=== PATIENT | female | born 2000 | race Caucasian/White ===

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

== ENCOUNTER 2019-01-29 02:18 | Outpatient (CLI) | payer MEDICAID, SELFPAY ==
[2019-01-29 12:38] LABS: HCT 34.2 % (36.0-46.0); HGB 11.4 g/dL (12.0-15.5); Mean Corp. HGB Concentration 33.3 g/dL (32.0-36.0); Mean Corpuscular Hemoglobin 31.2 pg (27.0-33.0); Mean Corpuscular Volume 93.7 fL (80-95); Mean Platelet Volume 8.9 fL (8.0-11.0); Platelet Count 267 x1000/uL (130-400); RBC 3.65 m/cumm (4.00-5.20); RBC Distribution Width 12.6 % (11.7-14.6); White Blood Cell Count 7.15 k/cumm (4.4-10.8)
[2019-01-29 13:00] LABS: Glucose,1 Hr (Glucola) 111 mg/dL (80-140)
== END 2019-01-29 02:38 ==
PROVIDERS: PCP Nurse Practitioner Pediatrics; Visit Provider Advanced Practice Midwife
DX: Z34.93 Encounter for supervision of normal pregnancy, unspecified, third trimester (principal)
CPT/HCPCS: 36415; 82950; 85027

== ENCOUNTER 2019-02-12 08:58 | Outpatient (REF) | payer MEDICAID, SELFPAY ==
[2019-02-12 09:38] LABS: Bilirubin Negative (Negative); Blood Moderate (Negative); Clarity Clear (Clear); Glucose Negative (Negative); Ketones Negative (Negative); Leukocyte Esterase Negative (Negative); Nitrite Negative (Negative); Specific Gravity 1.015 (1.005-1.025); Urobilinogen 0.2 EU/dL (Up TO 0.2); pH 8.5 (5-8)
[2019-02-12 10:05] LABS: Bacteria Rare HPF (Negative); C & S Indicated? C&S Done As Ordered; Casts Negative LPF (Negative); Crystals Negative HPF (Negative); Epithelial Cells Few HPF (Negative); Mucus Trace (Negative); RBC 20-50 (0-2); WBC 20-50 HPF (0-5)
== END 2019-02-12 09:18 ==
LOC: LBN 08:58
PROVIDERS: PCP Nurse Practitioner Pediatrics; Visit Provider Advanced Practice Midwife
DX: Z87.442 Personal history of urinary calculi (principal)
CPT/HCPCS: 81003; 81015; 87086

== ENCOUNTER 2019-03-05 16:25 | Observation (INO) | payer MEDICAID, SELFPAY ==
[2019-03-05] MEDS: Betamet Acet/Betamet Na Ph Inj. 30 MG/5 ML 12 MG IM (18:31)
[2019-03-05 18:43] LABS: Fetal Fibronectin Positive (Negative)
[2019-03-05] MEDS: Lactated Ringers 1,000 ML 150 ML IV (19:43)
[2019-03-05] MEDS: Normal Saline Flush 10 ML SYR IVP (19:44)
[2019-03-05 20:25] LABS: Bilirubin Negative (Negative); Blood Trace-lysed (Negative); Clarity Clear (Clear); Glucose Negative (Negative); Ketones Negative (Negative); Leukocyte Esterase Negative (Negative); Nitrite Negative (Negative); Specific Gravity <= 1.005 (1.005-1.025); Urobilinogen 0.2 EU/dL (Up TO 0.2); pH 6.5 (5-8)
[2019-03-05 20:37] LABS: Bacteria Negative HPF (Negative); Casts Negative LPF (Negative); Crystals Negative HPF (Negative); Epithelial Cells Negative HPF (Negative); Mucus Negative (Negative); Other Cells Negative (Negative); RBC Negative (0-2); WBC Negative HPF (0-5)
[2019-03-05 20:38] LABS: C & S Indicated? No
[2019-03-05 21:00] VITALS: BP 105/68; PULSE 94; RESP 18; TEMP 36.7
[2019-03-05 21:30] VITALS: BP 105/68; PULSE 94; RESP 18; TEMP 36.7
[2019-03-05] MEDS: Zolpidem 5 MG TAB 10 MG PO (23:28)
[2019-03-06 02:00] VITALS: BP 110/65; PULSE 93; RESP 18; TEMP 36.8
[2019-03-06] MEDS: Lactated Ringers 1,000 ML 150 ML IV ×2 (05:35→06:29)
--- NOTE | 2019-03-06 09:00 | DI.US_ITS ---
EXAM: US RENAL CLINICAL HISTORY: h/o personal familial stones,+ l cvat, iup w/ucs TECHNIQUE: Ultrasound performed using standard protocol. COMPARISON: No exams were available for comparison FINDINGS: The right kidney measures 10.9 cm. The left kidney measures 10.9 cm. The parenchymal thickness and echogenicity appear normal. No stones, cysts or masses are identified. There is mild bilateral hydr onephrosis. The prevoid bladder volume measured 114 cc. There is no postvoid residual. No bladder wall thickening or bladder calculi are seen. IMPRESSION: Mild bilateral hydronephrosis which may be within normal limits late in gestation. No calculi are visualized.
[2019-03-06] MEDS: MAGNESIUM SULFATE 4 GM/100 ML BAG IVPB (12:22)
[2019-03-06 12:30] LABS: HCT 35.5 % (36.0-46.0); HGB 11.8 g/dL (12.0-15.5); Mean Corp. HGB Concentration 33.2 g/dL (32.0-36.0); Mean Corpuscular Volume 93.2 fL (80-95); Mean Platelet Volume 9.2 fL (8.0-11.0); Platelet Count 293 x1000/uL (130-400); RBC 3.81 m/cumm (4.00-5.20); RBC Distribution Width 12.6 % (11.7-14.6); White Blood Cell Count 10.72 k/cumm (4.4-10.8)
== END 2019-03-06 13:15 | disposition short-term general hospital (02) ==
PROVIDERS: Advanced Practice Midwife; Admitting Provider Advanced Practice Midwife; PCP Nurse Practitioner Pediatrics; Visit Provider Advanced Practice Midwife
DX: O60.03 Preterm labor without delivery, third trimester (principal); Z3A.33 33 weeks gestation of pregnancy; Z36.85 Encounter for antenatal screening for Streptococcus B; Z87.442 Personal history of urinary calculi
CPT/HCPCS: 36415; 76770; 85027; 86850; 86900; 86901; 96365; 96372; 81003; 81015; 82731; 87081; 87480; 87510; 87660; G0378; J0702; J3475

== ENCOUNTER 2019-03-17 14:50 | Outpatient (REF) | payer MEDICAID, SELFPAY | END 2019-03-17 15:10 | LOC: LBN 14:50 | PROVIDERS: PCP Nurse Practitioner Pediatrics; Visit Provider Advanced Practice Midwife | DX: Z34.93 Encounter for supervision of normal pregnancy, unspecified, third trimester (principal); Z36.85 Encounter for antenatal screening for Streptococcus B | CPT/HCPCS: 87081 ==

== ENCOUNTER 2019-03-22 11:52 | Inpatient (IN) | payer MEDICAID, SELFPAY ==
[2019-03-22 16:52] LABS: HCT 36.9 % (36.0-46.0); HGB 12.1 g/dL (12.0-15.5); Mean Corp. HGB Concentration 32.8 g/dL (32.0-36.0); Mean Corpuscular Hemoglobin 30.6 pg (27.0-33.0); Mean Corpuscular Volume 93.2 fL (80-95); Mean Platelet Volume 9.4 fL (8.0-11.0); Platelet Count 242 x1000/uL (130-400); RBC 3.96 m/cumm (4.00-5.20); RBC Distribution Width 13.3 % (11.7-14.6); White Blood Cell Count 10.96 k/cumm (4.4-10.8)
[2019-03-23 13:43] LABS: *AMPHETAMINES SCREEN URINE Negative (Negative); *BARBITURATES SCREEN URINE Negative (Negative); *BENZODIAZEPINES SCREEN URINE Negative (Negative); Cannabinoids THC Negative (Negative); Cocaine Screen,Urine Negative (Negative); METHADONE URINE SCREEN Negative (Negative); OPIATES URINE SCREEN Negative (Negative)
[2019-03-23] MEDS: Oxytocin 10 UNITS/ML VIAL IM (13:49)
[2019-03-23 13:50] LABS: Tricyclic Antidepressants Negative (Negative)
[2019-03-23] MEDS: Ibuprofen 600 MG TAB PO (14:36)
[2019-03-23] MEDS: Acetaminophen 325 MG TAB 650 MG PO (14:36)
[2019-03-24 07:52] LABS: HCT 37.4 % (36.0-46.0); HGB 12.2 g/dL (12.0-15.5); Mean Corp. HGB Concentration 32.6 g/dL (32.0-36.0); Mean Corpuscular Hemoglobin 30.4 pg (27.0-33.0); Mean Corpuscular Volume 93.3 fL (80-95); Mean Platelet Volume 9.3 fL (8.0-11.0); Platelet Count 236 x1000/uL (130-400); RBC 4.01 m/cumm (4.00-5.20); RBC Distribution Width 13.5 % (11.7-14.6); White Blood Cell Count 10.78 k/cumm (4.4-10.8)
[2019-03-24] MEDS: Acetaminophen 325 MG TAB 650 MG PO (08:40)
[2019-03-24] MEDS: Ibuprofen 600 MG TAB PO (08:41)
--- NOTE | 2019-03-25 06:49 | W.PM.PROGNOT ---
Date of Service Date of service: 03/24/19 Time of Service: 15:00 Assessment and Plan Assessment and plan (1) Encounter for insertion subdermal contraceptive: Status: Acute Assessment and plan: Previous Nexplanon insertion site marked with pen and left upper arm cleansed with betadine and alcohol. Approximately 0.5 cc of local anesthetic injected at insertion site and deeply along insertion path. Nexplanon inserted without difficulty and patient tolerated the procedure well. Pressure dressing applied and patient was instructed to keep a bandaid in place for three days and replace the bandaid if the dressing becomes wet. The patient and I identified the device after the procedure. Signs of infection were reviewed. Subjective Subjective Interval history since last seen: Desires post insertion ofnexplanon prior to dischage Objective Objective Clinical Data: Vital Signs Pain Level 7 03/24/19 08:41 Laboratory Results WBC 10.78 k/cumm (4.4-10.8) 03/24/19 07:20 RBC 4.01 m/cumm (4.00-5.20) 03/24/19 07:20 Hgb 12.2 g/dL (12.0-15.5) 03/24/19 07:20 Hct 37.4 % (36.0-46.0) 03/24/19 07:20 MCV 93.3 fL (80-95) 03/24/19 07:20 MCH 30.4 pg (27.0-33.0) 03/24/19 07:20 MCHC 32.6 g/dL (32.0-36.0) 03/24/19 07:20 RDW 13.5 % (11.7-14.6) 03/24/19 07:20 Plt Count 236 x1000/uL (130-400) 03/24/19 07:20 MPV 9.3 fL (8.0-11.0) 03/24/19 07:20 Urine Opiates Screen Negative (Negative) 03/22/19 17:00 Urine Methadone Screen Negative (Negative) 03/22/19 17:00 Ur Barbiturates Screen Negative (Negative) 03/22/19 17:00 Ur Tricyclics Screen Negative (Negative) 03/22/19 17:00 Ur Amphetamines Screen Negative (Negative) 03/22/19 17:00 U Benzodiazepines Scrn Negative (Negative) 03/22/19 17:00 Urine Cocaine Screen Negative (Negative) 03/22/19 17:00 Ur THC Screen Negative (Negative) 03/22/19 17:00 Patient ABO/Rh O Positive 03/22/19 16:31 Antibody Screen Negative 03/22/19 16:31 Procedures Abscess I/D Site: other (left upper arm) Anesthetic used: lidocaine 1%
[2019-03-25] MEDS: Hamamelis Leaf/Glycerin 100 EACH BOX PR (16:16)
[2019-03-25] MEDS: Measles, Mumps, & Rubella Vaccine 0.5 ML VIAL SC (16:17)
[2019-03-25] MEDS: Acetaminophen 325 MG TAB 650 MG PO (16:28)
[2019-03-25] MEDS: Ibuprofen 600 MG TAB PO (16:29)
== END 2019-03-25 17:10 | disposition other institution (70) | DRG 807 ==
PROVIDERS: Advanced Practice Midwife; Admitting Provider Advanced Practice Midwife; PCP Nurse Practitioner Pediatrics; Visit Provider Advanced Practice Midwife
DX: O60.14X0 Preterm labor third trimester with preterm delivery third trimester, not applicable or unspecified (principal); Z37.0 Single live birth; Z3A.36 36 weeks gestation of pregnancy; O69.81X0 Labor and delivery complicated by cord around neck, without compression, not applicable or unspecified; Z39.1 Encounter for care and examination of lactating mother
CPT/HCPCS: 36415; 80307; 85027; 86850; 86900; 86901; 99232; G0378; J2590

== ENCOUNTER 2020-08-09 20:22 | Emergency (ER) | payer MEDICAID, SELFPAY ==
[2020-08-09 20:26] VITALS: BP 120/68; PULSE 101; RESP 16; TEMP 36.6; O2SAT 98
--- NOTE | 2020-08-09 20:42 | ED.GENADUL_ITS ---
Discharge Plan Disposition Patient Disposition: HOME Condition: Good Discharge Details Clinical Impression: URI (upper respiratory infection), Acute sore throat Primary Care Provider: Heather Phan ED Provider: Noah Tejada Home Meds and New Rx's Prescriptions: Continued Nexplanon 68 mg implant 1 implant SBD ONCE RF: 0 estradiol 1 mg tablet 1 mg PO DAILY Qty: 14 RF: 0 Discharge Instructions Instructions: Upper Respiratory Infection (ED) Additional Instructions: This time your strep test is negative. Your symptoms are inconsistent with mono. I suspect this is a mild viral infection. Please gargle salt water, and take Tylenol and Motrin as needed for pain. Drink plenty of fluids. If you notice any worsening of your symptoms, or any new symptoms such as vomiting, diarrhea, fever, chills, shortness of breath, chest pain, numbness, weakness, or fainting , please return immediately to the emergency department for ree valuation. Please follow up with your primary care provider as soon as possible for reassessment and reevaluation. As always, it was a pleasure participating in your medical care today. Referrals: Heather Phan [Primary Care Provider] - Medical Decision Making 19-year-old female with no significant past medical history presents today for evaluation of sore throat. Patient states been present for the last 24 to 36 hours. She admits to a fever yesterday, but denies any fever currently or chills. She denies any significant cough or shortness of breath. She did have a Covid test outpatient which was negative yesterday. No severe fatigue, no other headache or complaints at this time. No other modifying factors. Physical exam demonstrates mild erythema the posterior pharynx. No meningeal signs. Strep screen was negative. Symptoms consistent with mild viral etiology. Covid negative. Patient will be discharged home. Discussed recommendations, recommendations for Tylenol Motrin, salt water gargles. Discussed red flags which return. I have extensively reviewed the treatment plan and discharge instructions with the patient. I have addressed all patient concerns at this time. The patient was made aware of what symptoms to monitor for that would warrant a return to the emergency department. Discussed the plan with the patient, they demonstrate verbal understanding and agreement with our assessment and plan at this time. The documentation in this chart was dictated using [employer] dictation software. Please excuse any dictation errors. HPI General Date/Time Provider Initiated Documentation: 08/09/20 20:22 . HPI Narrative: 19-year-old female with no significant past medical history presents today for evaluation of sore throat. Patient states been present for the last 2 4 to 36 hours. She admits to a fever yesterday, but denies any fever currently or chills. She denies any significant cough or shortness of breath. She did have a Covid test outpatient which was negative yesterday. No severe fatigue, no other headache or complaints at this time. No other modifying factors. Related Data Home Medications Medication Instructions Recorded Confirmed etonogestrel 68 mg subdermal 1 implant SBD ONCE 04/27/19 08/09/20 implant estradiol 1 mg tablet 1 mg PO DAILY #14 tab 01/25/20 08/09/20 Previous Rx's Medication Instructions Recorded estradiol 1 mg tablet 1 mg PO DAILY #14 tab 01/25/20 Allergies Allergy/AdvReac Type Severity Reaction Status Date / Time No Known Allergies Allergy Verified 08/09/20 20:31 General Stated Complaint: Sorethroat AV: 4 Review of Systems All systems reviewed & are unremarkable except as noted in HPI and below [facility] Medical History Back pain affecting Joint pain and back pain prior to . Has had chiropractic and PT in the past. BMI (body mass index), pediatric, 5% to less than 85% for age (02/01/15) Contraception Nexplanon device inserted 06/2015 Contraception, generic surveillance (06/24/15) Nexplanon inserted 06/2015 Dysfunctional uterine bleeding Kidney stones hospitalized 2014 and 2018 Learning difficulty (04/21/13) IEP in place Positive test Presence of subdermal contraceptive device Ureteral stone (02/02/16) Surgical History Myringotomy w/ PE (pressure equalizing) tubes Family History Other Personal history of malignant neoplasm MGM Father Essential hypertension Mother Asthma Social History Smoking/Tobacco Use Status: Never Second Hand Exposure: Yes Smoking risk assessment performed?: Yes Alcohol Intake: former Drug use: Occasionally Substance use type: marijuana Adopted: No Pets and animals: Yes Pets and animals: dog(s) Current gender identity: female Do you feel safe at home: Yes Do you feel safe in your relationship?: Yes Female Reproductive History Menstrual Age of Menarche: 14 Duration of menses: <3 days control method: pills (failed bcm.) History History 1 Para 1 Hx # Term Pregnancies 0 Multiple births 0 Hx # Pregnancies 1 Ectopic pregnancies 0 AB induced 0 Hx Number of Living Children 0 AB spontaneous 0 Past Pregnancies Del. Date GA/Weeks # Outcome Route Wgt Sex Labor Lgth Anesthes ia Location Prov Complic 03/23/19 36 No Successful vaginal 2834.952 g Female Christine MartinmarioandiJAREK Delivery Date: 03/23/19 No complications. Mother with perineal and periurethral abrasions not needing repair. Nancy Latif Exam Narrative Exam Narrative: 1.Const: Well-nourished, Well-developed, appearing stated age 2.Eyes: PERRL, no conjunctival injection, and symmetrical lids. 3.ENT: Atraumatic external nose and ears. Moist MM. Neck: Symmetric, trachea midline, No thyromegaly. Mild erythema in the posterior pharynx. No tonsillar exudate, no tonsillar enlargement. Erythema appears to be more focalized in the left upper posterior oropharynx component. Patient demonstrates good movement of cervical neck. There is no nuchal rigidity, no nuchal tenderness. Patient is able to flex the neck without any difficulty or significant pain. Negative Kernig's and Brudzinski sign. 4.CVS: +S1/S2, No murmurs or gallops. Peripheral pulses 2+ and equal in all extremities. Brisk capillary refill in all extremities. 5.RESP: Unlabored respiratory effort. Clear to auscultation bilaterally. No wheezes rales or rhonchi 6.GI: Soft, Nontender/Nondistended, No hepatosplenomegaly. No guarding or rebound. 7.MSK: Normocephalic/Atraumatic, Extremities w/o deformity or ttp No cyanosis or clubbing, Normal movement of all extremities 8.Skin: Warm, Dry. No rashes or lesions. 9.Neuro: class a regional drivers II-XII grossly intact. Sensation grossly intact, no focal neurologic deficits. 10.Psych: (AAO) x3. Appropriate mood and affect Course Vital Signs Vital signs: Vital Signs Temperature 36.6 C 08/09/20 20:26 Pulse 101 H 08/09/20 20:26 Respiratory Rate 16 08/09/20 20:26 Blood Pressure 120/68 08/09/20 20:26 Pulse Oximetry 98 08/09/20 20:26 Temperature 36.6 C 08/09/20 20:26 Temperature Source Tympanic 08/09/20 20:26 Pulse 101 H 08/09/20 20:26 Respiratory Rate 16 08/09/20 20:26 Respiratory Effort Non-Labored 08/09/20 20:26 Blood Pressure 120/68 08/09/20 20:26 Blood Pressure Position Sitting 08/09/20 20:26 Pulse Oximetry 98 08/09/20 20:26 Oxygen Delivery Method Room Air 08/09/20 20:26 Oxygen Flow Rate 0 08/09/20 20:26 Pain Level 9 08/09/20 20:26
== END 2020-08-09 20:53 | disposition home or self-care (01) ==
PROVIDERS: Emergency Provider Student in an Organized Health Care Education/Training Program; PCP Nurse Practitioner Pediatrics
DX: J02.8 Acute pharyngitis due to other specified organisms (principal); J06.9 Acute upper respiratory infection, unspecified
CPT/HCPCS: 87880; 99282; 87081; 99283

== ENCOUNTER 2020-11-16 07:02 | Emergency (ER) | payer MEDICAID, SELFPAY ==
[2020-11-16 07:14] VITALS: BP 125/72; PULSE 82; RESP 18; TEMP 36.6; O2SAT 98
[2020-11-16 07:15] LABS: Bilirubin Negative (Negative); Blood Large (Negative); Clarity Cloudy (Clear); Glucose Negative (Negative); Ketones Negative (Negative); Leukocyte Esterase Trace (Negative); Nitrite Negative (Negative); Specific Gravity >= 1.030 (1.005-1.025); Urobilinogen 0.2 EU/dL (Up TO 0.2); pH 6.5 (5-8)
[2020-11-16 07:25] LABS: Bacteria Moderate HPF (Negative); Crystals Negative HPF (Negative); Epithelial Cells Moderate HPF (Negative); Mucus Trace (Negative); RBC >50 HPF (0-2)
[2020-11-16 07:26] LABS: C & S Indicated? No/Sq. Contamination
--- NOTE | 2020-11-16 07:41 | ED.GENADUL_ITS ---
Discharge Plan Disposition Patient Disposition: HOME Condition: Improving Discharge Details Clinical Impression: Kidney stone Primary Care Provider: Heather Phan ED Provider: Estefani Everett Home Meds and New Rx's Prescriptions: New oxycodone 5 mg tablet 5 mg PO Q6H PRN (Reason: pain) Qty: 7 RF: 0 tamsulosin [Flomax] 0.4 mg capsule 0.4 mg PO DAILY Qty: 10 RF: 0 Continued Nexplanon 68 mg implant 1 implant SBD ONCE RF: 0 naproxen sodium [Aleve] 220 mg Capsule 440 mg PO Q8H PRNRF: 0 Discharge Instructions Instructions: Kidney Stones (ED) Additional Instructions: Drink plenty of fluids and get plenty of rest. Alternate tylenol and motrin as needed and directed for pain. Take the oxycodone for pain not relieved with Tylenol or Motrin. Take the Flomax daily as directed. Your prescriptions have been sent electronically to your pharmacy. Call the pharmacy to make sure your prescriptions are ready before pickup. Take the prescriptions as directed. Call the urology office today to schedule a follow-up appointment for reeval uation. Return immediately to the emergency department if you develop any worsening or new concerning symptoms. Referrals: Frederick Huerta MD [ [facility] STAFF PHYSICIAN] - Discharge Data Discharge Physician: Estefani Everett Medical Decision Making 19-year-old female with a history of kidney stones presents with right flank to right side of abdomen pain and nausea for the past 2 hours. Vitals within normal limits. She appears tearful and uncomfortable. No CVA tenderness. She has some right-sided abdominal tenderness but abdomen is soft without rigidity or guarding. Suspect most likely kidney stone. Also consider biliary colic, cholecystitis, appendicitis, pyelonephritis. Will place an IV, bolus IV fluids, screening labs, urinalysis, CT of renal colic. As she took Advil prior to arrival, will give morphine and Zofran and reassess. Labs and imaging reviewed. Normal white blood cell count. Potassium 3.3, will replete. Urinalysis noted large blood. CT renal colic noted what appears likely to be a radioopaque calculus in the right lower pelvis but radiologist unable to locate this directly within the ureter, however patient does have dilatation of the right collecting system and this calculus was not seen on a prior scan from 2016. Considering patient's clinical presentation and these findings, suspect most likely kidney stone. Imaging reviewed with urology who agrees with plan to treat as kidney stone at this time. Agrees with plan for Flomax and will follow up with patient in the office in the next few weeks. Patient feels comfortable going home. Prescriptions for Flomax and oxycodone sent electronically to her pharmacy. Patient placed on urology follow-up list. Usual and customary return precautions given prior to discharge. Medical Records Medical records reviewed: Yes I reviewed the patient's medical records. Imaging Data Radiologic Study: Radiologist's impression: CT RENAL COLIC WO CLINICAL HISTORY: R flank pain with radiation to RLQ. TECHNIQUE: Imaging Protocol: Axial computed tomography images with coronal and sagittal reformatted images were created and reviewed CONTRAST MATERIAL: Intravenous: none Oral: None COMPARISON: CT ABD PELVIS WITH CONTRAST from 01/20/2016 FINDINGS: VISUALIZED LUNG BASES: No nodules nor pleural effusions evident. ABDOMEN: There is no ascites. LIVER: There are no obvious focal hepatic lesions evident of this noninfused study. GALLBLADDER/BILIARY: No obvious gallbladder pathology. CBD is not dilated. PANCREAS: No evidence of pancreatic mass nor dilatation of the pancreatic duct. SPLEEN: Spleen is not enlarged. No obvious intrasplenic lesions. ADRENALS: There are no significant adrenal masses. KIDNEYS: There is bilateral nephrolithiasis. There are 3 nonobstructive calculi in the left kidney. In the right kidney there is a single 3 millimeter calculus within the kidney. There is a round millimeter calcification in the right-side of the pelvis evident which is difficult to determine position relative to the ureter at this level.. There are no calculi seen within the relatively collapsed urinary bladder nor at the ureterovesical junctions.. ABDOMINAL AORTA: Abdominal aorta is not enlarged. LYMPH NODES: There is no retroperitoneal nor paraaortic adenopathy. ABDOMINAL WALL: No evidence of significant anterior abdominal wall hernia. GI: There is no evidence of bowel obstruction, free air, nor abscess. PELVIS: LYMPH NODES: There is no intrapelvic nor inguinal adenopathy. GI: The cecum is sitting on top of the urinary bladder.It is difficult to visualize the appendix as a separate structure. URINARY BLADDER: No calculi nor obvious masses evident REPRODUCTIVE: Uterus and ovaries exhibit normal size. There is a small amount of fluid in the cul-de-sac OSSEOUS: No significant osseous lesions. Sacroiliac joints unremarkable. IMPRESSION: 1. Bilateral nephrolithiasis. In this age group this bring spine possibility of medullary sponge kidney as underlying cause. 2. There is mild dilatation of the right collecting system but is difficult to visualize radiopaque calculus within the right ureter. There is a round calcification in the lower right pelvis has more the appearance of a phlebolith than an actual calculus in the urinary tract. Nevertheless, this was not evident on the prior CT scan of 2016. Therefore cannot exclude that this is a possible calculus in the lower right ureter. There are no radiopaque calculi in the nondistended urinary bladder. 3. There is a small amount of fluid in the cul-de-sac. No adnexal masses. 4. Appendix is difficult to identify on this study. Lab Data Lab results reviewed: Yes I reviewed the patient's lab results. Labs: Laboratory Tests Range/Units 11/16/20 11/16/20 11/16/20 07:10 07:33 07:33 WBC (4.4-10.8) 10^3/uL 6.48 RBC (3.93-5.22) 10^6/uL 4.67 Hgb (11.2-15.7) g/dL 14.0 Hct (36.0-46.0) % 42.6 MCV (80-95) fL 91.2 MCH (27.0-33.0) pg 30.0 MCHC (32.0-36.0) % 32.9 RDW (11.7-14.6) % 11.7 Plt Count (130-400) 10^3/uL 267 MPV (8.0-11.0) fL 9.3 Immature Gran % 0.2 Neutrophils % 67.4 Lymphocytes % 25.2 Monocytes % 5.9 Eosinophils % 0.8 Basophils % 0.5 Nucleated RBC % % 0 Absolute Neutrophils (1.2-6.7) 10^3/uL 4.38 Absolute Lymphocytes (1.2-3.4) 10^3/uL 1.63 Absolute Monocytes (0.1-0.8) 10^3/uL 0.38 Absolute Eosinophils (0.0-0.7) 10^3/uL 0.05 Absolute Basophils (0.0-0.2) 10^3/uL 0.03 Sodium (136-145) mmol/L 142 Potassium (3.5-5.1) mmol/L 3.3 L Chloride (98-107) mmol/L 105 Carbon Dioxide (21.0-32.0) mmol/L 26.6 Anion Gap (3-11) mmol/L 10.4 BUN (7-18) mg/dL 15 Creatinine (0.55-1.02) mg/dL 0.9 Estimated GFR/1.73 m2 (mL/min/1.73m2) >= 60.00 Glucose (74-106) mg/dL 99 Calcium (8.5-10.1) mg/dL 9.2 Total Bilirubin (0.2-1.0) mg/dL 0.5 AST (15-37) U/L 8 L ALT (14-59) U/L 15 Alkaline Phosphatase (46-116) U/L 57 Total Protein (6.4-8.2) g/dL 8.0 Albumin (3.4-5.0) g/dL 4.7 Lipase (73-393) U/L 67 Urine Color (Yellow) Rupert Urine Clarity (Clear) Cloudy Urine pH (5-8) 6.5 Ur Specific [place] (1.005-1.025) >= 1.030 H Urine Protein (Negative) mg/dL 30 H Urine Ketones (Negative) mg/dL Negative Urine Blood (Negative) Large H Urine Nitrite (Negative) Negative Urine Bilirubin (Negative) Negative Urine Urobilinogen (Up TO 0.2) EU/dL 0.2 Ur Leukocyte Esterase (Negative) Trace H Urine RBC (0-2) HPF >50 H Urine WBC (0-5) HPF 5-10 Ur Epithelial Cells (Negative) HPF Moderate Urine Crystals (Negative) HPF Negative Urine Bacteria (Negative) HPF Moderate Urine Mucus (Negative) Trace Ur Culture Indicated? No/Sq. Contamination Urine Glucose (Negative) mg/dL Negative HPI General Mode of arrival: ambulatory . Date/Time Provider Initiated Documentation: 11/16/20 07:03 . Limitations to Documentation: no limitations . Information obtained by: patient . HPI Narrative: Patient is a 19-year-old female with a previous history of kidney stones who presents with right flank with radiation to right side of her abdomen pain for the past 2 hours. Patient states the pain awoke her from sleep this morning and has been constant, sharp and currently 10/10. She took 2 tabs of 220 mg Advil [address] hour [address] to arrival [facility]. She admits to nausea but denies any vomiting. She denies any known injury, fever, urinary symptoms, diarrhea. Related Data Home Medications Medication Instructions Recorded Confirmed etonogestrel 68 mg subdermal 1 implant SBD ONCE 04/27/19 11/16/20 implant naproxen sodium [Aleve] 440 mg PO Q8H PRN 11/16/20 11/16/20 oxycodone 5 mg PO Q6H PRN #7 tab 11/16/20 tamsulosin [Flomax] 0.4 mg PO DAILY #10 cap 11/16/20 Previous Rx's Medication Instructions Recorded oxycodone 5 mg PO Q6H PRN #7 tab 11/16/20 tamsulosin [Flomax] 0.4 mg PO DAILY #10 cap 11/16/20 Allergies Allergy/AdvReac Type Severity Reaction Status Date / Time No Known Allergies Allergy Verified 11/16/20 07:20 General Stated Complaint: Abd Prob AV: 3 Review of Systems All systems reviewed & are unremarkable except as noted in HPI and below Constitutional Constitutional: Reports as per HPI, Denies chills and Denies fever(s) Eyes Eyes: Denies blurry vision ENT Ears, Nose, Mouth, and Throat: Denies dizziness, Denies sore throat and Denies throat swelling Cardiovascular Cardiovascular: Denies chest pain and Denies dyspnea Respiratory Respiratory: Denies cough and Denies dyspnea Gastrointestinal Gastrointestinal: Reports abdominal pain, Denies diarrhea, Reports nausea and Denies vomiting Genitourinary Genitourinary: Denies hematuria and Denies dysuria Musculoskeletal Musculoskeletal: Denies back pain and Denies numbness Integumentary/Breasts Skin/Breast: Denies lesions and Denies rash Neurologic Neurologic: Denies dizziness, Denies localized weakness and Denies numbness Allergic/Immunologic Allergic/Immunologic: Denies throat swelling [facility] Medical History Back pain affecting Joint pain and back pain prior to . Has had chiropractic and PT in the past. BMI (body mass index), pediatric, 5% to less than 85% for age (02/01/15) Contraception Nexplanon device inserted 06/2015 Contraception, generic surveillance (06/24/15) Nexplanon inserted 06/2015 Dysfunctional uterine bleeding Kidney stones hospitalized 2014 and 2019 Learning difficulty (04/21/13) IEP in place Positive test Presence of subdermal contraceptive device Ureteral stone (02/02/16) Surgical History Myringotomy w/ PE (pressure equalizing) tubes Family History Other Personal history of malignant neoplasm MGM Father Essential hypertension Mother Asthma Social History Smoking/Tobacco Use Status: Never Second Hand Exposure: Yes Smoking risk assessment performed?: Yes Alcohol Intake: former Drug use: Current Sobriety Substance use type: marijuana Adopted: No Pets and animals: Yes Pets and animals: dog(s) Current gender identity: female Do you feel safe at home: Yes Do you feel safe in your relationship?: Yes Female Reproductive History Menstrual Age of Menarche: 14 Duration of menses: <3 days control method: pills (failed bcm.) History History 1 Para 1 Hx # Term Pregnancies 0 Multiple births 0 Hx # Pregnancies 1 Ectopic pregnancies 0 AB induced 0 Hx Number of Living Children 0 AB spontaneous 0 Past Pregnancies Del. Date GA/Weeks # Outcome Route Wgt Sex Labor Lgth Anesthes ia Location [facility] 03/23/19 36 No Successful vaginal 2834.952 g Female Christine Jean CNM Delivery Date: 03/23/19 No complications. Mother with perineal and periurethral abrasions not needing repair. Latif,Abigail Exam Const General: cooperative, healthy appearing and uncomfortable Orientation: alert, awake and oriented x3 HENMT Head: normal to inspection Face and sinus: normal facial exam Eyes General: appearance normal, both eyes and all related structures EOM: EOM intact bilaterally Neck Neck: normal visual inspection and No submandibular swelling Lymphatic: no lymphadenopathy noted Chest Chest: normal inspection of the chest and no tenderness Resp Effort & Inspection: normal respiratory effort and able to speak in complete sentences Auscultation: clear to auscultation bilaterally Cardio Rate: regular rate Rhythm: regular rhythm GI Inspection: normal to inspection Palpation: soft, not firm, not rigid and tender (R mid and lower abdomen) Auscultation: normal bowel sounds Back/Spine/Pelvis Back: no CVA tenderness Thoracic/Lumbar Spine: thoracic and lumbar spine normal to inspection Skin General skin exam: no rashes or lesions noted Neuro General: patient alert, patient awake and patient oriented x3 Cognition: normal cognition Speech: speech normal Motor: muscle tone normal throughout Sensory Exam: no sensory deficits noted Extrem General: normal to inspection, full ROM, capillary refill normal, no calf tenderness bilaterally and no edema Psych Appearance: grossly normal Mental Status: mental status grossly normal Speech and Movement: speech and movement normal Affect: normal affect Course Vital Signs Vital signs: Vital Signs Temperature 97.9 F 11/16/20 07:14 Pulse 82 11/16/20 07:14 Respiratory Rate 18 11/16/20 07:14 Blood Pressure 125/72 11/16/20 07:14 Pulse Oximetry 98 11/16/20 07:14 Temperature 97.9 F 11/16/20 07:14 Temperature Source Temporal Artery Scan 11/16/20 07:14 Pulse 82 11/16/20 07:14 Respiratory Rate 18 11/16/20 07:14 Respiratory Effort Non-Labored 11/16/20 07:19 Blood Pressure 125/72 11/16/20 07:14 Blood Pressure Position Supine 11/16/20 07:14 Pulse Oximetry 98 11/16/20 07:14 Oxygen Delivery Method Room Air 11/16/20 07:14 Oxygen Flow Rate 0 11/16/20 07:14 Pain Level 10 11/16/20 07:14 Lab/Test Results Lab/Test Results: Laboratory Tests Range/Units 11/16/20 07:10 Urine Color (Yellow) Rupert Urine Clarity (Clear) Cloudy Urine pH (5-8) 6.5 Ur Specific [place] (1.005-1.025) >= 1.030 H Urine Protein (Negative) mg/dL 30 H Urine Ketones (Negative) mg/dL Negative Urine Blood (Negative) Large H Urine Nitrite (Negative) Negative Urine Bilirubin (Negative) Negative Urine Urobilinogen (Up TO 0.2) EU/dL 0.2 Ur Leukocyte Esterase (Negative) Trace H Urine RBC (0-2) HPF >50 H Urine WBC (0-5) HPF 5-10 Ur Epithelial Cells (Negative) HPF Moderate Urine Crystals (Negative) HPF Negative Urine Bacteria (Negative) HPF Moderate Urine Mucus (Negative) Trace Ur Culture Indicated? No/Sq. Contamination Urine Glucose (Negative) mg/dL Negative POC- Test(urine) Negative
[2020-11-16] MEDS: Normal Saline 1,000 ML 1000 ML IV (07:45)
[2020-11-16] MEDS: Ondansetron 4 MG/2 ML VIAL IVP (07:52)
[2020-11-16 07:53] LABS: Abs Immature Grans 0.01 10^3/uL (0.0-0.06); Absolute Basophil Count 0.03 10^3/uL (0.0-0.2); Absolute Eosinophil Count 0.05 10^3/uL (0.0-0.7); Absolute Lymphocyte Count 1.63 10^3/uL (1.2-3.4); Absolute Monocyte Count 0.38 10^3/uL (0.1-0.8); Absolute Neutrophil Count 4.38 10^3/uL (1.2-6.7); Basophils % 0.5; Eosinophils % 0.8; HCT 42.6 % (36.0-46.0); Immature Grans % 0.2; Lymphocytes % 25.2; MCHC 32.9 % (32.0-36.0); MCV 91.2 fL (80-95); MPV 9.3 fL (8.0-11.0); Monocytes % 5.9; Neutrophils % 67.4; Nucleated RBC 0 %; Platelet Count 267 10^3/uL (130-400); RBC 4.67 10^6/uL (3.93-5.22); RDW 11.7 % (11.7-14.6); RDW-SD 39.2 fL; WBC 6.48 10^3/uL (4.4-10.8)
[2020-11-16 08:12] LABS: ALT 15 U/L (14-59); AST 8 U/L (15-37); Albumin 4.7 g/dL (3.4-5.0); Alkaline Phosphatase 57 U/L (46-116); Anion Gap 10.4 mmol/L (3-11); BUN 15 mg/dL (7-18); Bilirubin, Total 0.5 mg/dL (0.2-1.0); CO2 26.6 mmol/L (21.0-32.0); CREATININE 0.9 mg/dL (0.55-1.02); Calcium 9.2 mg/dL (8.5-10.1); Chloride 105 mmol/L (98-107); Glucose 99 mg/dL (74-106); Lipase 67 U/L (73-393); Potassium 3.3 mmol/L (3.5-5.1); Sodium 142 mmol/L (136-145)
--- NOTE | 2020-11-16 08:22 | DI.CT_ITS ---
Exam(s) CT RENAL COLIC WO EXAM: CT RENAL COLIC WO CLINICAL HISTORY: R flank pain with radiation to RLQ. TECHNIQUE: Imaging Protocol: Axial computed tomography images with coronal and sagittal reformatted images were created and reviewed CONTRAST MATERIAL: Intravenous: none Oral: None COMPARISON: CT ABD PELVIS WITH CONTRAST from 01/20/2016 FINDINGS: VISUALIZED LUNG BASES: No nodules nor pleural effusions evident. ABDOMEN: There is no ascites. LIVER: There are no obvious focal hepatic lesions evident of this noninfused study. GALLBLADDER/BILIARY: No obvious gallbladder pathology. CBD is not dilated. PANCREAS: No evidence of pancreatic mass nor dilatation of the pancreatic duct. SPLEEN: Spleen is not enlarged. No obvious intrasplenic lesions. ADRENALS: There are no significant adrenal masses. KIDNEYS: There is bilateral nephrolithiasis. There are 3 nonobstructive calculi in the left kidney. In the right kidney there is a single 3 millimeter calculus within the kidney. There is a round mil limeter calcification in the right-side of the pelvis evident which is difficult to determine positio n relative to the ureter at this level.. There are no calculi seen within the relatively collapsed u rinary bladder nor at the ureterovesical junctions.. ABDOMINAL AORTA: Abdominal aorta is not enlarged. LYMPH NODES: There is no retroperitoneal nor paraaortic adenopathy. ABDOMINAL WALL: No evidence of significant anterior abdominal wall hernia. GI: There is no evidence of bowel obstruction, free air, nor abscess. PELVIS: LYMPH NODES: There is no intrapelvic nor inguinal adenopathy. GI: The cecum is sitting on top of the urinary bladder.It is difficult to visualize the appendix as a separate structure. URINARY BLADDER: No calculi nor obvious masses evident REPRODUCTIVE: Uterus and ovaries exhibit normal size. There is a small amount of fluid in the cul-de -sac OSSEOUS: No significant osseous lesions. Sacroiliac joints unremarkable. IMPRESSION: 1. Bilateral nephrolithiasis. In this age group this bring spine possibility of medullary sponge kid carisa as underlying cause. 2. There is mild dilatation of the right collecting system but is difficult to visualize radiopaque c alculus within the right ureter. There is a round calcification in the lower right pelvis has more t he appearance of a phlebolith than an actual calculus in the urinary tract. Nevertheless, this was n ot evident on the prior CT scan of 2015. Therefore cannot exclude that this is a possible calculus i n the lower right ureter. There are no radiopaque calculi in the nondistended urinary bladder. 3. There is a small amount of fluid in the cul-de-sac. No adnexal masses. 4. Appendix is difficult to identify on this study. RADIATION DOSE DELIVERED: 480.46mGy.cm Total DLP DATA REPOSITORY: All CT scans at this facility are submitted to the National Radiology Data Registry (NRDR) Dose Index Registry (DIR) with the [employer] (ACR). RADIATION OPTIMIZATION: All CT scans at this facility use at least one of these dose optimization te chniques: automated exposure control; mA and/or kV adjustment per patient size (includes targeted exa ms where dose is matched to clinical indication); or iterative reconstruction.
[2020-11-16] MEDS: Normal Saline 500 ML IV (08:42)
[2020-11-16] MEDS: ACETAMINOPHEN 1,000 MG/100 ML BTL 400 MG IVPB (08:43)
[2020-11-16] MEDS: Potassium Chloride 20 MEQ TABCR 40 MEQ PO (08:45)
[2020-11-16 09:43] VITALS: BP 100/59; PULSE 78; RESP 16; TEMP 36.5; O2SAT 100
[2020-11-16] MEDS: Tamsulosin 0.4 MG CAPCR PO (09:51)
[2020-11-16 09:56] VITALS: BP 100/59; PULSE 78; RESP 16; TEMP 36.5; O2SAT 100
--- NOTE | 2020-11-18 16:50 | CMPROGNOTE_ITS ---
- If Service Date Differs Date of service: 11/18/20 Time of Service: 16:50 Care Management Progress Note Maryellen is seen in the ED for a possible kidney stone. At the request of ED provider, CM coordinates a referral to [facility] Urology to assist Maryellen in obtaining a follow up appointment.
== END 2020-11-16 09:59 | disposition home or self-care (01) ==
LOC: ER 09:55
PROVIDERS: Emergency Provider Physician Assistant; PCP Nurse Practitioner Pediatrics
DX: N20.0 Calculus of kidney (principal)
CPT/HCPCS: 36415; 80053; 81025; 83690; 96361; 96365; 96375; 99284; 74176; 81003; 81015; 85025; J0131; J2405

== ENCOUNTER 2021-04-14 12:46 | Outpatient (REF) | payer MEDICAID, SELFPAY ==
--- NOTE | 2021-04-14 12:05 | PAPFT_PTH ---
PATIENT: Maryellen Velasco LOC: [facility] U#:[id number] AGE/SX: 20/F ROOM: RE04/14/[address]: Reyna Jaquez DO : 2000 BED: DIS: 04/14/2021 SPEC #: [id number] RECD: 04/14/21 16:50 STATUS: FIORELLA REErickson #: [id number] ANNA: 04/14/21 12:[address]: Reyna Jaquez DEPT: [facility] Cytology RECD BY: Ariana Martinez ENTERED: 04/14/21 16:51 SP TYPE: PAPFT OTHR DR: LAMAR Oneil Tissues: 1 - CX/ENDOCX FOR PAP SMEARS Procedures: PAP THIN PREP/[facility] Screening Comments: [id number] (CHLAMYDIA/GC)
[2021-04-17 15:27] LABS: Chlamydia Result Negative (Negative); GC Result Negative (Negative)
== END 2021-04-14 12:47 | disposition home or self-care (01) ==
LOC: LBN 12:46
PROVIDERS: PCP Nurse Practitioner Pediatrics; Visit Provider Obstetrics & Gynecology
DX: Z12.4 Encounter for screening for malignant neoplasm of cervix (principal); Z11.3 Encounter for screening for infections with a predominantly sexual mode of transmission
CPT/HCPCS: 87491; 87591; 88142

== ENCOUNTER 2021-06-07 18:04 | Emergency (ER) | payer MEDICAID, SELFPAY ==
[2021-06-07 18:08] VITALS: BP 120/70; PULSE 102; RESP 14; TEMP 36.6; O2SAT 98
--- NOTE | 2021-06-07 18:30 | ED.GENADUL_ITS ---
Discharge Plan Disposition Patient Disposition: HOME Condition: Stable Discharge Details Clinical Impression: Pharyngitis Primary Care Provider: Heather Phan ED Provider: Jonathon Koenig Home Meds and New Rx's Prescriptions: Continued Nexplanon 68 mg implant 1 implant SBD ONCE RF: 0 naproxen sodium [Aleve] 220 mg Capsule 440 mg PO Q8H PRNRF: 0 Discharge Instructions Instructions: Pharyngitis (ED) Additional Instructions: Please take naproxen as prescribed or according to label tomorrow. Do not take tonight. Your next dose should be tomorrow morning as you have received NSAID treatment intramuscularly tonight. Please drink plenty of fluids in order to stay hydrated and allow for plenty of rest. A Covid test was performed today and is pending. Please maintain home isolation until test is resulted and normal. Please contact your primary care physician to arrange follow-up. Return to the ER immediately for any worsening or new concerning symptoms. Stand Alone Forms: Work Release Referrals: Heather Phan NP [Primary Care Provider] - Discharge Data Discharge Date/Time-TO BE ENTERED AT DEPARTURE: 06/07/21 18:49 Medical Decision Making 20-year-old female here with 3 days of sore throat. Patient has erythema with exudate on exam. Patient does have pain with swallowing. No stridor or trismus. Strep test rapid strep test negative. Plan to treat with Decadron 10 mg p.o. as well as Toradol 30 mg IM. We will will send Covid test. Usual customary discharge instructions reviewed with the patient. HPI General Mode of arrival: ambulatory . Date/Time Provider Initiated Documentation: 06/07/21 18:30 . Limitations to Documentation: no limitations . Information obtained by: patient . HPI Narrative: 20-year-old female here with 3 days of sore throat. Patient notes pain is moderate to severe and worse with swallowing. Symptoms have progressed since initial onset. She also noticed she has some swelling to her tonsils with white spots. She is concerned for strep throat. No associated fevers. No cough. Patient denies abdominal pain. Related Data Home Medications Medication Instructions Recorded Confirmed etonogestrel 68 mg subdermal 1 implant SBD ONCE 04/27/19 06/07/21 implant naproxen sodium [Aleve] 440 mg PO Q8H PRN 11/16/20 06/07/21 Allergies Allergy/AdvReac Type Severity Reaction Status Date / Time No Known Allergies Allergy Verified 06/07/21 18:12 General Stated Complaint: Sorethroat AV: 4 Review of Systems Constitutional Constitutional: Denies fever(s) ENT Ears, Nose, Mouth, and Throat: Reports as per HPI Gastrointestinal Gastrointestinal: Denies abdominal pain Integumentary/Breasts Skin/Breast: Denies rash PFSH All Active Problems Pharyngitis (Acute) Unintentional weight loss (Acute) URI (upper respiratory infection) (Acute) Acute sore throat (Acute) Kidney stone (Chronic) Dysfunctional uterine bleeding (Acute) Contraception management (Acute) Presence of subdermal contraceptive device (Acute) Learning difficulty (Chronic 04/21/13) IEP in place Medical History Back pain affecting Joint pain and back pain prior to . Has had chiropractic and PT in the past. BMI (body mass index), pediatric, 5% to less than 85% for age (02/01/15) Contraception Nexplanon device inserted 06/2015 Contraception, generic surveillance (06/24/15) Nexplanon inserted 06/2015 Positive test Ureteral stone (02/02/16) Surgical History Myringotomy w/ PE (pressure equalizing) tubes Family History Other Personal history of malignant neoplasm MGM Father Essential hypertension Mother Asthma Social History Smoking/Tobacco Use Status: Current every day Tobacco Type: e-cigarettes Second Hand Exposure: Yes Smoking risk assessment performed?: Yes Alcohol Intake: current Alcohol Intake frequency: holidays/special occasions only Drug use: Occasionally Substance use type: marijuana Adopted: No Pets and animals: Yes Pets and animals: dog(s) Current gender identity: female Do you feel safe at home: Yes Do you feel safe in your relationship?: Yes Female Reproductive History Menstrual Age of Menarche: 14 Duration of menses: <3 days control method: pills (failed bcm.) History History 1 Para 1 Hx # Term Pregnancies 0 Multiple births 0 Hx # Pregnancies 1 Ectopic pregnancies 0 AB induced 0 Hx Number of Living Children 0 AB spontaneous 0 Past Pregnancies Del. Date GA/Weeks # Outcome Route Wgt Sex Labor Lgth Anesthes ia Location Prov Complic 03/23/19 36 No Successful vaginal 2834.952 g Female Christine Jean WALLYNicole Delivery Date: 03/23/19 No complications. Mother with perineal and periurethral abrasions not needing repair. Latif,Nancy Exam Const General: cooperative and no acute distress HENMT Head: normocephalic and atraumatic Mouth: moist mucous membranes Throat: uvula midline and posterior oropharynx abnormal erythema and exudates; no edema Other: No trismus, no stridor Eyes Conjunctivae: normal conjunctivae Neck Neck: no lymphadenopathy, trachea midline and supple Resp Auscultation: clear to auscultation bilaterally, no rales, no rhonchi and no wheezes Cardio Rate: regular rate and not tachycardic Rhythm: regular rhythm GI Palpation: soft, not firm, no guarding, no masses, not rigid and nontender Skin General skin exam: no rashes or lesions noted Neuro General: patient alert, patient awake and tone normal Course Vital Signs Vital signs: Vital Signs Temperature 36.6 C 06/07/21 18:08 Pulse 102 H 06/07/21 18:08 Respiratory Rate 14 06/07/21 18:08 Blood Pressure 120/70 06/07/21 18:08 Pulse Oximetry 98 06/07/21 18:08 Temperature 36.6 C 06/07/21 18:08 Temperature Source Temporal Artery Scan 06/07/21 18:08 Pulse 102 H 06/07/21 18:08 Respiratory Rate 14 06/07/21 18:08 Respiratory Effort Non-Labored 06/07/21 18:13 Blood Pressure 120/70 06/07/21 18:08 Blood Pressure Position Sitting 06/07/21 18:08 Pulse Oximetry 98 06/07/21 18:08 Pain Level 10 06/07/21 18:08 Lab/Test Results Lab/Test Results: 06/07/21 18:24 Tonsil - Not Specified Group A Streptococcus Culture - Pending POC Strep Test-TAHIR(Rapid) Start: 06/07/21 18:23 Freq: .Rapid Strep Test Status: Active Protocol: Document 06/07/21 18:23 RM (Rec: 06/07/21 18:23 RM [id number]) Strep test-TAHIR(Rapid)-POC POC-Strep test-TAHIR (Rapid) Negative POC-Strep test-TAHIR (Rapid) Negative PAWSS Have you Been Recently Intoxicated or Drunk Within the Last 30 days?: Yes Have you Ever Experienced Previous Episodes of Alcohol Withdrawal?: No Have you ever Experienced Withdrawal Seizures?: No Have you ever Experienced Delirium Tremens(DT)s?: No Have you ever undergone Alcohol Rehabilitation Treatment (i.e, inpt ot outpatient treatment programs)?: No Have you ever Experienced Blackouts?: No Have you ever Combined Alcohol with other Downers within the last 90 days?: No Have you ever Combined Alcohol with any other Substance of Abuse during the last 90 days?: No Positive Blood Alcohol level on Presentation? [PCS.BAL]: No Evidence of Increased Autonomic Activity (i.e. HR>120, tremor, sweating, agitation, nausea)?: No Result: 1
[2021-06-07] MEDS: Ketorolac 30 MG/ML VIAL IM (18:38)
[2021-06-07] MEDS: Dexamethasone 10 MG/ML VIAL PO (18:38)
[2021-06-08 21:03] LABS: COVID-19 RT-PCR UVMMC Result Negative (Negative)
== END 2021-06-07 18:49 | disposition home or self-care (01) ==
PROVIDERS: Emergency Provider Student in an Organized Health Care Education/Training Program; PCP Nurse Practitioner Pediatrics
DX: J02.9 Acute pharyngitis, unspecified (principal); F17.290 Nicotine dependence, other tobacco product, uncomplicated; Z20.822 Contact with and (suspected) exposure to COVID-19
CPT/HCPCS: 87880; 96372; 99283; 99284; U0003; 87081; J1100; J1885

== ENCOUNTER 2021-07-17 02:31 | Outpatient (CLI) | payer MEDICAID, SELFPAY ==
[2021-07-17 12:26] LABS: Abs Immature Grans 0.01 10^3/uL (0.0-0.06); Absolute Basophil Count 0.03 10^3/uL (0.0-0.2); Absolute Eosinophil Count 0.03 10^3/uL (0.0-0.7); Absolute Lymphocyte Count 1.86 10^3/uL (1.2-3.4); Absolute Monocyte Count 0.44 10^3/uL (0.1-0.8); Absolute Neutrophil Count 3.88 10^3/uL (1.2-6.7); Basophils % 0.5; Eosinophils % 0.5; HCT 41.6 % (36.0-46.0); HGB 13.5 g/dL (11.2-15.7); Immature Grans % 0.2; Lymphocytes % 29.8; MCH 29.7 pg (27.0-33.0); MCHC 32.5 % (32.0-36.0); MCV 91.6 fL (80-95); MPV 8.6 fL (8.0-11.0); Nucleated RBC 0 %; Platelet Count 264 10^3/uL (130-400); RBC 4.54 10^6/uL (3.93-5.22); RDW 11.7 % (11.7-14.6); RDW-SD 39.5 fL; WBC 6.25 10^3/uL (4.4-10.8)
[2021-07-17 12:32] LABS: ESR < 1 mm/hr (0-20)
[2021-07-17 21:24] LABS: CRP, High Sensitivity <0.34 mg/L (See Note)
[2021-07-18 10:33] LABS: Prealbumin 27 mg/dL (20-40)
== END 2021-07-17 02:32 | disposition home or self-care (01) ==
LOC: LBO 02:32
PROVIDERS: PCP Family Medicine; Visit Provider Family Medicine
DX: R59.1 Generalized enlarged lymph nodes (principal); R63.4 Abnormal weight loss
CPT/HCPCS: 36415; 85652; 86141; 84134; 84443; 85025

== ENCOUNTER 2021-07-25 17:41 | Emergency (ER) | payer MEDICAID, SELFPAY ==
[2021-07-25 17:46] VITALS: BP 143/86; PULSE 101; RESP 16; TEMP 36.9; O2SAT 97
--- NOTE | 2021-07-25 18:04 | DI.CT_ITS ---
Exam(s) CT BRAIN NECK CTA EXAM: CT BRAIN NECK CTA CLINICAL HISTORY: left facial paresthesia, left visual blurring. TECHNIQUE: Imaging Protocol: Axial CT angiography was performed with multi-slice acquisition and mu lti-planar and/or 3D reconstructions. CONTRAST MATERIAL: Intravenous: Omnipaque 350 Contrast volume:structured data in ml COMPARISON: CT CT RENAL COLIC WO from 11/16/2020 FINDINGS: CTA Neck W: Aortic arch anatomy: The aortic arch anatomy is conventional. Anterior circulation: Both common carotid arteries ascend with normal luminal diameters. No evidence of significant athero sclerotic disease in these vessels nor at the level of the carotid bifurcations and proximal internal carotid arteries on both sides. No significant narrowing. No dissection. Both internal carotid ar teries are also nicely patent in the upper neck and skull base-carotid canals. Posterior circulation: Both vertebral arteries originated conventional fashion off the subclavian arteries with no stenosis at their origins nor within these vessels which ascend with normal equal luminal diameters within the foramen transversarium. No evidence of intraluminal thrombosis nor dissection. Posterior inferior cerebellar arteries, off of the vertebral arteries at the skull base. Both vertebral arteries contri bute equally to the formation normal diameter basilar artery. CTA Brain W: Anterior circulation: Both internal carotid arteries are patent in the skull base carotid canals as well as within the cave rnous sinuses. Supraclinoid aspects are patent and nonaneurysmal. The left A1 segment is dominant. Right A1 segment is thinner. Both anterior cerebral arteries are patent. There is no evidence of a neurysm at the level of the anterior communicating artery. Both middle cerebral arteries are patent. No intraluminal thrombus. No aneurysms. Posterior circulation: Basilar artery ascends in the midline with no intraluminal stenosis nor dissection. Distally basilar artery gives off patent bilateral superior cerebellar arteries and above this level terminates as pa tent bilateral posterior cerebral arteries. There is no aneurysm at the tip of the basilar artery. CT BRAIN: There is no evidence of intracranial hemorrhage, mass effect, or shift of midline structures. There are no extra-axial fluid collections. Ventricles are not enlarged or shifted. There are no ring enh ancing lesions in the brain and no abnormal meningeal enhancement. IMPRESSION: 1. Unremarkable CT angiography of the head and neck. No evidence of significant atherosclerotic narr owing nor dissection. No intraluminal thrombus evident. No aneurysms. 2. No acute intracranial findings. RADIATION DOSE DELIVERED: 1,734.15mGy.cm Total DLP DATA REPOSITORY: All CT scans at this facility are submitted to the National Radiology Data Registry (NRDR) Dose Index Registry (DIR) with the [employer] (ACR). RADIATION OPTIMIZATION: All CT scans at this facility use at least one of these dose optimization te chniques: automated exposure control; mA and/or kV adjustment per patient size (includes targeted exa ms where dose is matched to clinical indication); or iterative reconstruction.
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
[2021-07-25 18:40] LABS: Abs Immature Grans 0.02 10^3/uL (0.0-0.06); Absolute Basophil Count 0.04 10^3/uL (0.0-0.2); Absolute Eosinophil Count 0.09 10^3/uL (0.0-0.7); Absolute Lymphocyte Count 1.72 10^3/uL (1.2-3.4); Basophils % 0.6; Eosinophils % 1.3; HCT 42.4 % (36.0-46.0); Immature Grans % 0.3; Lymphocytes % 24.3; MCH 30.2 pg (27.0-33.0); MCV 91.4 fL (80-95); MPV 8.9 fL (8.0-11.0); Monocytes % 5.7; Neutrophils % 67.8; Nucleated RBC 0 %; Platelet Count 294 10^3/uL (130-400); RBC 4.64 10^6/uL (3.93-5.22); RDW 11.6 % (11.7-14.6); RDW-SD 38.8 fL; WBC 7.07 10^3/uL (4.4-10.8)
[2021-07-25] MEDS: Omnipaque 350 MG/ML 100 ML BTL IV (18:47)
[2021-07-25 18:48] LABS: ALT 15 U/L (14-59); AST 8 U/L (15-37); Albumin 4.6 g/dL (3.4-5.0); Alkaline Phosphatase 62 U/L (46-116); Anion Gap 7.7 mmol/L (3-11); BUN 11 mg/dL (7-18); Bilirubin, Total 0.4 mg/dL (0.2-1.0); CO2 26.3 mmol/L (21.0-32.0); CREATININE 0.9 mg/dL (0.55-1.02); Chloride 99 mmol/L (98-107); Glucose 105 mg/dL (74-106); Potassium 3.1 mmol/L (3.5-5.1); Sodium 133 mmol/L (136-145); Total Protein 8.1 g/dL (6.4-8.2)
[2021-07-25] MEDS: Normal Saline Flush 10 ML SYR IVP (18:49)
[2021-07-25 18:54] LABS: *AMPHETAMINES SCREEN URINE Negative (Negative); *BARBITURATES SCREEN URINE Negative (Negative); *BENZODIAZEPINES SCREEN URINE Negative (Negative); Cannabinoids THC Negative (Negative); Cocaine Screen,Urine Negative (Negative); METHADONE URINE SCREEN Negative (Negative); OPIATES URINE SCREEN Negative (Negative); Tricyclic Antidepressants Negative (Negative)
[2021-07-25] MEDS: Tetracaine 0.5% 4 ML BTL OP (19:26)
[2021-07-25] MEDS: Fluorescein STRIPS 100/BOX 1 MG OP (19:26)
--- NOTE | 2021-07-25 19:28 | DI.VRAD_ITS ---
PROCEDURE INFORMATION: Exam: CT Head Without Contrast Exam date and time: 07/25/2021 6:44 PM Age: 20 years old Clinical indication: Other: Left facial paresthesia, left visual blurring TECHNIQUE: Imaging protocol: Computed tomography of the head without contrast. COMPARISON: No relevant prior studies available. FINDINGS: Brain: Normal. No hemorrhage. Unremarkable white matter. No mass effect. Cerebral ventricles: No ventriculomegaly. Paranasal sinuses: Visualized sinuses are unremarkable. No fluid levels. Mastoid air cells: Visualized mastoid air cells are well aerated. Bones/joints: Unremarkable. No acute fracture. Soft tissues: Unremarkable. IMPRESSION: No acute intracranial abnormality. PROCEDURE INFORMATION: Exam: CT Angiography Head With Contrast, Arteriography Exam date and time: 07/25/2021 6:44 PM Age: 20 years old Clinical indication: Other: Left facial paresthesia, left visual blurring TECHNIQUE: Imaging protocol: Computed tomography angiography of the head with contrast. Exam focused on the arteries. 3D rendering (Not supervised by radiologist): MIP and/or 3D reconstructed images were created by the technologist. Contrast material: OMNIPAQUE 350; Contrast volume: 85 ml; Contrast route: INTRAVENOUS (IV); COMPARISON: No relevant prior studies available. FINDINGS: ANTERIOR CIRCULATION: Right internal carotid artery: Unremarkable. Intracranial segment is patent with no significant stenosis. No aneurysm. Right middle cerebral artery: Unremarkable. No occlusion or significant stenosis. No aneurysm. Right anterior cerebral artery: Unremarkable. No occlusion or significant stenosis. No aneurysm. Left internal carotid artery: Unremarkable. Intracranial segment is patent with no significant stenosis. No aneurysm. Left middle cerebral artery: Unremarkable. No occlusion or significant stenosis. No aneurysm. Left anterior cerebral artery: Unremarkable. No occlusion or significant stenosis. No aneurysm. POSTERIOR CIRCULATION: Right vertebral artery: Unremarkable. No occlusion or significant stenosis. No aneurysm. Left vertebral artery: Unremarkable. No occlusion or significant stenosis. No aneurysm. Basilar artery: Unremarkable. No occlusion or significant stenosis. No aneurysm. Right posterior cerebral artery: Unremarkable. No occlusion or significant stenosis. No aneurysm. Left posterior cerebral artery: Unremarkable. No occlusion or significant stenosis. No aneurysm. Brain: No definite mass, mass effect, or midline shift. Cerebral ventricles: No ventriculomegaly. Bones/joints: Unremarkable. No acute fracture. Soft tissues: Unremarkable. IMPRESSION: No large vessel stenosis or occlusion. PROCEDURE INFORMATION: Exam: CT Angiography Neck With Contrast Exam date and time: 07/25/2021 6:44 PM Age: 20 years old Clinical indication: Other: Left facial paresthesia, left visual blurring TECHNIQUE: Imaging protocol: Computed tomography angiography of the neck with contrast. 3D rendering (Not supervised by radiologist): MIP and/or 3D reconstructed images were created by the technologist. Radiation optimization: All CT scans at this facility use at least one of these dose optimization techniques: automated exposure control; mA and/or kV adjustment per patient size (includes targeted exams where dose is matched to clinical indication); or iterative reconstruction. Contrast material: OMNIPAQUE 350; Contrast volume: 85 ml; Contrast route: INTRAVENOUS (IV); COMPARISON: No relevant prior studies available. FINDINGS: Right common carotid artery: No stenosis. No dissection or occlusion. Right internal carotid artery: No stenosis of the extracranial segment. No dissection or occlusion. Right external carotid artery: No occlusion or stenosis of the origin. Left common carotid artery: No stenosis. No dissection or occlusion. Left internal carotid artery: No stenosis of the extracranial segment. No dissection or occlusion. Left external carotid artery: No occlusion or stenosis of the origin. Right vertebral artery: No stenosis. No dissection or occlusion. Left vertebral artery: No stenosis. No dissection or occlusion. Soft tissues: Normal. No significant soft tissue swelling. Bones/joints: No acute fracture. IMPRESSION: No stenosis or occlusion. REFERENCES: NASCET CRITERIA. The degree of internal carotid artery stenosis is based on NASCET criteria. Normal is no stenosis. Mild is less than 50% stenosis. Moderate is 50-69% stenosis. Severe is 70% to 99% stenosis. Total occlusion is no detectable patent lumen. Dictated and Authenticated by: Beverley Arguello MD. Ordering:ARIADNA Vega MD
--- NOTE | 2021-07-25 19:46 | NUR.NOTE ---
Referral to Neurology, Dr Pak for Blurry Vision, Paresthesia this week if at all possible.Nursing Note:
[2021-07-25 19:58] VITALS: BP 126/84; PULSE 92; RESP 16; TEMP 36.8; O2SAT 98
== END 2021-07-25 19:58 | disposition home or self-care (01) ==
PROVIDERS: Emergency Provider Emergency Medicine; PCP Family Medicine
DX: H53.8 Other visual disturbances (principal); R20.2 Paresthesia of skin; F17.290 Nicotine dependence, other tobacco product, uncomplicated
CPT/HCPCS: 36415; 70496; 70498; 80053; 80307; 81025; 99285; 85025; 99284; J3490

== ENCOUNTER 2021-08-04 00:46 | Outpatient (CLI) | payer MEDICAID, SELFPAY ==
--- NOTE | 2021-08-04 07:15 | DI.US_ITS ---
Exam(s) US SOFT TISSUE HEAD OR NECK EXAM: US SOFT TISSUE HEAD OR NECK CLINICAL HISTORY: R>L enlarged cervical lymph node,lymphadenopathy,r59.1. TECHNIQUE: Ultrasound was performed using standard protocol. COMPARISON: No exams were available for comparison FINDINGS: Sonographic assessment utilizing grayscale and color Doppler imaging was performed and targeted to th e area of clinical concern. There are multiple enlarged lymph nodes along the anterior neck. They are all ovoid and hypoechoic w ith a hyperechoic vascular notch. The largest on the right measures 2.3 x 0.8 x 2.2 cm. The largest on the left measures 3.5 x 0.6 x 1.8 cm. IMPRESSION: Enlarged lymph nodes in the neck. There appearance sonographically suggest benign reactive enlargeme nt. Please correlate with patient's clinical history. Follow-up as clinically appropriate. A CT sc an of the neck with contrast may be considered for further evaluation. DATA REPOSITORY:
== END 2021-08-04 01:06 ==
PROVIDERS: PCP Family Medicine; Visit Provider Family Medicine
DX: R59.1 Generalized enlarged lymph nodes (principal)
CPT/HCPCS: 76536

== ENCOUNTER 2021-11-23 16:14 | Outpatient (CLI) | payer MEDICAID, SELFPAY ==
--- NOTE | 2021-11-23 16:00 | RT.EKG_ITS ---
APPROVED REPORT Exam: Resting ECG Reason for Exam: Tachycardia, exertional dyspnea Patient Location: O HR:94 bpm ECG Measurements Heart Rate 94 AXIS MA 132 P 49 QRSd 90 QRS 42 QT 364 T 59 QTc 455 Conclusion Sinus rhythm...normal P axis, V-rate 60- 99 Normal Electrocardiogram
== END 2021-11-23 16:15 | disposition home or self-care (01) ==
LOC: DI.KIM 16:14
PROVIDERS: PCP Family Medicine; Visit Provider Family Medicine
DX: R00.0 Tachycardia, unspecified (principal); R06.09 Other forms of dyspnea
CPT/HCPCS: 93010

== ENCOUNTER 2021-11-28 03:48 | Outpatient (CLI) | payer MEDICAID, SELFPAY ==
[2021-11-28 17:40] LABS: Anion Gap 9.1 mmol/L (3-11); BUN 11 mg/dL (7-18); CO2 26.9 mmol/L (21.0-32.0); CREATININE 0.8 mg/dL (0.55-1.02); Calcium 8.9 mg/dL (8.5-10.1); Chloride 103 mmol/L (98-107); Glucose 91 mg/dL (74-106); Magnesium 1.9 mg/dL (1.8-2.4); Potassium 3.7 mmol/L (3.5-5.1); Sodium 139 mmol/L (136-145); TSH (W/Ref FT4) 2.26 uIU/mL (0.36-3.74)
== END 2021-11-28 03:49 | disposition home or self-care (01) ==
LOC: LBO 03:48
PROVIDERS: PCP Family Medicine; Visit Provider Family Medicine
DX: R00.0 Tachycardia, unspecified (principal)
CPT/HCPCS: 36415; 80048; 83735; 84443

== ENCOUNTER 2021-12-04 04:31 | Outpatient (RCR) | payer MEDICAID, SELFPAY ==
--- NOTE | 2021-12-04 09:00 | HOLTER_ITS ---
APPROVED REPORT Conclusion This is a 24-hour Holter monitor ordered for tachycardia Rhythm throughout was sinus with an average heart rate of 88. Minimum was 61, maximum 123 There were very rare isolated atrial and ventricular ectopic beats There was no atrial fibrillation, no supraventricular tachycardia, no high-grade AV block, no pauses greater than 3 seconds No patient symptoms were reported
== END 2022-01-03 23:59 | disposition home or self-care (01) ==
LOC: RT 04:31
PROVIDERS: PCP Family Medicine; Visit Provider Family Medicine
DX: R00.0 Tachycardia, unspecified (principal)
CPT/HCPCS: 93225; 93226

== ENCOUNTER 2022-07-03 19:54 | Emergency (ER) | payer MEDICAID, SELFPAY ==
[2022-07-03 20:18] VITALS: BP 104/76; PULSE 135; RESP 18; TEMP 38.1; O2SAT 96
[2022-07-03 21:09] LABS: Influenza A PCR Negative (Negative); Influenza B PCR Negative (Negative); RSV PCR Negative (Negative)
[2022-07-03 21:13] LABS: COVID-19 PCR Positive (Negative); Source Nasopharynx
[2022-07-03 21:40] VITALS: BP 113/67; PULSE 145; RESP 24; TEMP 38.7; O2SAT 97
[2022-07-03] MEDS: Ketorolac 30 MG/ML VIAL IVP (22:19)
[2022-07-03] MEDS: Normal Saline 1,000 ML 1000 ML IV (22:20)
[2022-07-03] MEDS: Dexamethasone 10 MG/ML VIAL PO (22:20)
[2022-07-03] MEDS: Lactated Ringers 1,000 ML 1000 ML IV (22:21)
[2022-07-03] MEDS: ACETAMINOPHEN 1,000 MG/100 ML BTL 400 MG IVPB (22:21)
--- NOTE | 2022-07-03 23:23 | ED.GENADUL_ITS ---
Discharge Plan Disposition Patient Disposition: Home Condition: Improving Discharge Details Clinical Impression: COVID Primary Care Provider: Tacos Del Toro ED Provider: Yair Garza Home Meds and New Rx's Prescriptions: New benzonatate 200 mg capsule 200 mg PO TID PRN (Reason: cough) Qty: 30 0RF No Action Nexplanon 68 mg implant 1 implant SBD ONCE Rx Instructions: 03/24/2019 Discharge Instructions Instructions: COVID-19 (Coronavirus Disease 2019) (ED) Additional Instructions: At this time I feel that your symptoms are all secondary to your acute COVID infection. You are in a low risk group given no past medical history of concern and at this time I do not feel that you require antiviral therapy. It is very important though during viral illness that you stay well-hydrated and get plenty of rest. If you develop any new or significant worsening of symptoms such as severe s hortness of breath, chest pain, passing out, or inability to tolerate fluid intake please return to the emergency department for reassessment otherwise follow-up with your primary care provider if not improving in the next week. Stand Alone Forms: Work Release Referrals: Tacos Del Toro DO [Primary Care Provider] - 1 week (If not improving) Discharge Data Discharge Date/Time-TO BE ENTERED AT DEPARTURE: 07/04/22 00:11 Medical Decision Making Patient presenting to the emergency department for chief complaint of cold-like symptoms. Patient has had fever chills, headache, body aches, cough, sore throat and nasal congestion that had a rapid onset yesterday. Patient states that since symptoms began she has been taking [id number] fever medication but has not been drinking much or eating much due to not feeling well. Patient denies any nausea vomiting diarrhea, chest pain, or shortness of breath. Physical exam shows significant tachycardia, dry cough otherwise unremarkable HEENT exam. Patient has no signs of meningitis, is ill-appearing but nontoxic, clear lung sounds. At this time I have high suspicion for viral illness and viral pathogen panel was performed and patient was noted to be COVID-positive. At this time I doubt COVID-pneumonia given clear lung sounds and only 2 days of symptoms, patient not hypoxic and stable blood pressure. I feel that patient's tachycardia is significant secondary to dehydration from poor p.o. intake. We will give patient 1 L of NS and 1 L of LR along with acetaminophen and ketorolac along with Decadron. At this time I do not feel that patient requires any further labs or evaluation given expected course of COVID. We will continue to monitor though if patient does not respond appropriate to IV hydration. Reassessed patient near completion of fluids and patient stated significant improvement of symptoms. We will plan on discharging patient upon completion of fluids. After discussion of diagnosis and plan of care patient has no further needs, questions, or concerns and states clear understanding to return to the emergency department for any worsening symptoms. This documentation was generated using GoNabitation system, please disregard any oddities of phrase or misspellings. HPI General Mode of arrival: ambulatory . Date/Time Provider Initiated Documentation: 07/03/22 21:50 . Limitations to Documentation: no limitations . Information obtained by: patient and RN notes reviewed . History of Present Illness 21 year old F presents to the emergency department with the chief complaint of Fever, described as moderate, with intensity rated at 8. Quality is described as other (Generalized body aches), Patient started experiencing this day(s) (1) and it has been constant. No relieving factors improve symptom(s), No exacerbating factors reported . Patient notes fever/chills, loss of appetite, malaise and weakness; denies nausea/vomiting and rash. Patient did receive the following treatments prior to arrival, NSAID Related Data Home Medications Medication Instructions Recorded Confirmed etonogestrel 68 mg subdermal 1 implant subdermal ONCE 04/27/19 07/03/22 implant (Nexplanon) benzonatate 200 mg capsule 200 mg PO TID PRN cough #30 caps 07/03/22 Previous Rx's Medication Instructions Recorded benzonatate 200 mg capsule 200 mg PO TID PRN cough #30 caps 07/03/22 Allergies Allergy/AdvReac Type Severity Reaction Status Date / Time No Known Allergies Allergy Verified 05/25/22 11:08 General Stated Complaint: Fever AV: 4 Review of Systems Constitutional Constitutional: Reports body ache(s), Reports chills, Reports fever(s), Reports headache(s), Reports lethargy, Reports malaise and Reports poor appetite Eyes Eyes: Denies eye discharge ENT Ears, Nose, Mouth, and Throat: Reports as per HPI, Denies ear discharge, Denies otalgia, Reports headache(s), Reports nasal congestion, Reports nasal discharge, Denies neck pain, Reports sore throat and Denies throat swelling Cardiovascular Cardiovascular: Denies chest pain and Denies dyspnea Respiratory Respiratory: Reports cough and Denies dyspnea Musculoskeletal Musculoskeletal: Denies joint swelling and Denies neck pain Integumentary/Breasts Skin/Breast: Denies rash Neurologic Neurologic: Reports headache(s) Allergic/Immunologic Allergic/Immunologic: Denies throat swelling PFSH All Active Problems (Updated 07/03/22 @ 23:35 by Yair Garza NP) COVID (Acute) Medical History Contraception Nexplanon device inserted 06/2015 - removed 05/2022 Plans condoms/NFP Family history of coronary arteriosclerosis Kidney stones hospitalized 2014 and 2018 Learning difficulty (04/21/13) IEP in place Post-concussion headache Presence of subdermal contraceptive device Recurrent acute otitis media Tachycardia Unintentional weight loss Ureteral stone (02/02/16) Surgical History Myringotomy w/ PE (pressure equalizing) tubes Family History Other Personal history of malignant neoplasm MGM Father Essential hypertension Heart disease Mother Asthma Diabetes Essential hypertension Social History Smoking/Tobacco Use Status: Current every day Tobacco Type: e-cigarettes Tobacco: How many years used: 1 Quit status: not considering quitting Smoking risk assessment performed?: Yes Alcohol Intake: current Alcohol Intake frequency: holidays/special occasions only Drug use: Occasionally Substance use type: marijuana Adopted: No Caregiver/Support person: No Foster care: No Household members: children Housing: apartment Number of Children: 1 Communication Needs: None Education Level: high school Do you need help understanding health information?: Never current occupation: DIVISION FIELD INSPECTOR Pets and animals: No Sexually active: No Do you think of yourself as: straight/heterosexual Current gender identity: female What is your relationship status?: never How often do you talk on the phone with friends or family?: three or more times per week How often do you get together with friends or relatives?: three or more times per week Do you belong to any clubs or organized social groups?: no Panel score (0-1 are the most socially isolated patients): 1 What type of physical activity do you participate in: walking Duration: 60-90 minutes/day Frequency: 5-6 times per week Maryellen/Confucianism: None Special maryellen needs: No Seatbelt use: always Helmet use: No Drive intox or ride w/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 Date GA/Weeks # Preg Succ Route Wgt Sex Labor Lgth Anesth esia Location Prov Complic 03/23/19 36 No vaginal 2834.952 g Female Christine Jean CNM Delivery Date: 03/23/19 Last Updated by: Nancy Latif RN No complications. Mother with perineal and periurethral abrasions not needing repair. Exam Const General: cooperative Orientation: alert and awake HENCA Head: normal to inspection, normocephalic and atraumatic Ears: hearing grossly normal bilaterally and TM's normal bilaterally General nose exam: external nose normal Face and sinus: no erythema Mouth: oral mucosae normal, no drooling, no muffled voice and no trismus Throat: posterior oropharynx normal Neck Neck: normal visual inspection, full ROM, no lymphadenopathy, no meningeal signs, trachea midline and supple Resp Effort & Inspection: normal respiratory effort, able to speak in complete sentences and cough Quality of cough: dry Auscultation: clear to auscultation bilaterally Cardio Rate: tachycardic Rhythm: regular rhythm Heart Sounds: S1 normal, S2 normal, normal S1 and S2, no click, no gallops, no murmurs and no rubs Skin General skin exam: no rashes or lesions noted and dry skin (warm) Neuro General: patient alert, patient awake, patient oriented x3, gait normal and moves all extremities Cognition: normal cognition Speech: speech normal Course Vital Signs Vital signs: Vital Signs Temperature 38.1 C H 07/03/22 20:18 Pulse 135 H 07/03/22 20:18 Respiratory Rate 18 07/03/22 20:18 Blood Pressure 104/76 07/03/22 20:18 Pulse Oximetry 96 07/03/22 20:18 Temperature 38.7 C H 07/03/22 21:40 Temperature Source Tympanic 07/03/22 21:40 Pulse 145 H 07/03/22 21:40 Respiratory Rate 24 07/03/22 21:40 Respiratory Effort Normal, Non-Labored 07/03/22 21:35 Blood Pressure 113/67 07/03/22 21:40 Blood Pressure Position Sitting 07/03/22 20:18 Pulse Oximetry 97 07/03/22 21:40 Oxygen Delivery Method Room Air 07/03/22 21:40 Oxygen Flow Rate 0 07/03/22 21:40 Pain Level 9 07/03/22 20:18 Lab/Test Results Lab/Test Results: Laboratory Tests Range/Units 07/03/22 20:27 COVID-19 Source Nasopharynx SARS-CoV-2 (PCR) (Negative) Positive A Influenza Type A (PCR) (Negative) Negative Influenza Type B (PCR) (Negative) Negative RSV (PCR) (Negative) Negative
[2022-07-03] MEDS: Benzonatate 100 MG CAP PO (23:57)
[2022-07-04 00:01] VITALS: BP 93/53; PULSE 90; RESP 24; TEMP 36.6; O2SAT 96
== END 2022-07-04 00:11 | disposition home or self-care (01) ==
PROVIDERS: Student in an Organized Health Care Education/Training Program; Emergency Provider Nurse Practitioner Family; PCP Family Medicine
DX: U07.1 COVID-19 (principal)
CPT/HCPCS: 87637; 96361; 96365; 96375; 99284; J0131; J1100; J1885

== ENCOUNTER 2022-10-30 02:03 | Outpatient (CLI) | payer MEDICAID, SELFPAY ==
[2022-10-30 10:42] LABS: Panorama Kit Sent via Fed Ex
[2022-10-30 10:50] LABS: Abs Immature Grans 0.02 10^3/uL (0.0-0.06); Absolute Basophil Count 0.03 10^3/uL (0.0-0.2); Absolute Eosinophil Count 0.03 10^3/uL (0.0-0.7); Absolute Lymphocyte Count 1.48 10^3/uL (1.2-3.4); Absolute Monocyte Count 0.38 10^3/uL (0.1-0.8); Absolute Neutrophil Count 4.41 10^3/uL (1.2-6.7); Basophils % 0.5; Eosinophils % 0.5; HGB 13.3 g/dL (11.2-15.7); Immature Grans % 0.3; Lymphocytes % 23.3; MCH 29.8 pg (27.0-33.0); MCHC 33.3 % (32.0-36.0); MCV 90 fL (80-95); MPV 8.7 fL (8.0-11.0); Neutrophils % 69.4; Platelet Count 264 10^3/uL (130-400); RBC 4.46 10^6/uL (3.93-5.22); RDW 11.9 % (11.7-14.6); RDW-SD 39.1 fL; WBC 6.35 10^3/uL (4.4-10.8)
[2022-10-31 12:21] LABS: Varicella IgG Antibody Negative (See Note)
[2022-10-31 12:25] LABS: Rubella IgG Ab (UVM) Negative (See Note)
[2022-10-31 14:22] LABS: Hepatitis C Ab w Rflx HCV PCR Negative (Negative)
[2022-10-31 16:05] LABS: Hepatitis B Surface Ag Negative (Negative)
[2022-10-31 17:02] LABS: HIV-1/2 Ag & Ab Screen Negative (Negative)
[2022-11-01 15:08] LABS: Syphilis IgG w/Reflex Nonreactive (Nonreactive)
== END 2022-10-30 02:04 | disposition home or self-care (01) ==
PROVIDERS: PCP Family Medicine; Visit Provider Advanced Practice Midwife
DX: O28.3 Abnormal ultrasonic finding on antenatal screening of mother (principal); O35.2 Maternal care for (suspected) hereditary disease in fetus; Z13.79 Encounter for other screening for genetic and chromosomal anomalies; Z3A.00 Weeks of gestation of pregnancy not specified
CPT/HCPCS: 36415; 80053; 86787; 86803; 86850; 86900; 86901; 87340; 87389; 85025; 86762; 86780

== ENCOUNTER 2022-10-30 10:34 | Outpatient (REF) | payer MEDICAID, SELFPAY ==
[2022-10-30 15:21] LABS: *AMPHETAMINES SCREEN URINE Negative (Negative); *BARBITURATES SCREEN URINE Negative (Negative); *BENZODIAZEPINES SCREEN URINE Negative (Negative); Cannabinoids THC Negative (Negative); Cocaine Screen,Urine Negative (Negative); METHADONE URINE SCREEN Negative (Negative); OPIATES URINE SCREEN Negative (Negative)
[2022-10-30 15:33] LABS: Tricyclic Antidepressants Negative (Negative)
[2022-11-09 14:22] LABS: Buprenorphine Negative ng/mL (Cutoff: 5.0); Norbuprenorphine Negative ng/mL (Cutoff: 2.5)
== END 2022-10-30 10:35 | disposition home or self-care (01) ==
LOC: LBN 10:34
PROVIDERS: PCP Family Medicine; Visit Provider Advanced Practice Midwife
DX: Z34.91 Encounter for supervision of normal pregnancy, unspecified, first trimester (principal); Z3A.00 Weeks of gestation of pregnancy not specified
CPT/HCPCS: 80307; 80348; 87086; 87480; 87510; 87660

== ENCOUNTER → 2022-12-25 03:07 | Outpatient (CLI) | payer MEDICAID, SELFPAY ==
--- NOTE | 2022-12-25 07:00 | DI.US_ITS ---
Exam(s) US OB 2-3 TRIMESTER EXAM: US OB 2-3 TRIMESTER CLINICAL HISTORY: ,Z34.90. TECHNIQUE: Transabdominal obstetrical ultrasound was performed. COMPARISON: US POCUS EXAM from 10/02/2022 FINDINGS: There is a single viable intrauterine gestation with cardiac activity identified-157 bpm. Amniotic fluid: There is a normal amount of amniotic fluid. Placental location: The placenta is anterior grade 0,with no evidence of placenta previa.Distance fro m tip of placenta to the internal cervical os is 4.8 cm. ANATOMY: A 3 vessel umbilical cord is seen. A four-chamber cardiac view was obtained. Right and left ventricular outflow tracts were imaged. There are no obvious abnormalities of the spinal column evident. There is no obvious abnormal ity of the anterior abdominal wall. stomach and urinary bladder are identified and there is no evidence of hydronephrosis. No abnormalities of the upper lip region are identified. No evidence of choroid plexus cysts i n the brain. Dating parameters place this at approximately 19 weeks and 1 day gestational age. BPD measures 19 weeks and 1 day HC measures 19 weeks and 1 day AC measures 19 weeks and 3 days FL measures 18 weeks and 6 days Estimated weight is 277 gm-0 pounds 10 ounces Fetus is at the 46th percentile on the Hadlock scale. IMPRESSION:: Single viable intrauterine gestation which is approximately 9 weeks and 1 day gestation al age, implying an ELOY of 05/20/2023. There are no obvious anomalies evident on today's study. The placenta is anterior grade 0 with no evidence of placenta previa. There is a normal amount of amniotic fluid. DATA REPOSITORY:
== END ==
PROVIDERS: PCP Family Medicine; Visit Provider Advanced Practice Midwife
DX: Z34.92 Encounter for supervision of normal pregnancy, unspecified, second trimester (principal)
CPT/HCPCS: 76805

== ENCOUNTER → 2023-01-02 00:37 | Outpatient (CLI) | payer MEDICAID, SELFPAY ==
--- NOTE | 2023-01-02 08:00 | DI.US_ITS ---
Exam(s) US OB CERVICAL LENGTH EXAM: US OB CERVICAL LENGTH CLINICAL HISTORY: risk for PTL, PREV DELIVERY, O09.219, Z34.90. COMPARISON: US US OB 2-3 TRIMESTER from 12/25/2022 TECHNIQUE: Transabdominal transvaginal obstetrical ultrasound performed to evaluate cervix.. FINDINGS: Sonographic images demonstrate a single intrauterine gestation in cephalic position. Placenta: Anterior edge of placenta are 2 internal os is measured at 1.8 cm. Measured nearly 5 cm o n the prior exam. Cervical length 5.5 cm. Os is closed IMPRESSION: Cervical length appears normal. DATA REPOSITORY:
== END ==
PROVIDERS: PCP Family Medicine; Visit Provider Advanced Practice Midwife
DX: O09.212 Supervision of pregnancy with history of pre-term labor, second trimester (principal); Z34.92 Encounter for supervision of normal pregnancy, unspecified, second trimester
CPT/HCPCS: 76815

== ENCOUNTER 2023-01-21 16:04 | Outpatient (REF) | payer MEDICAID, SELFPAY | END 2023-01-21 16:05 | disposition home or self-care (01) | LOC: LBN 16:04 | PROVIDERS: PCP Family Medicine; Visit Provider Advanced Practice Midwife | DX: O26.892 Other specified pregnancy related conditions, second trimester (principal); N89.8 Other specified noninflammatory disorders of vagina; Z3A.23 23 weeks gestation of pregnancy | CPT/HCPCS: 87480; 87510; 87660 ==

== ENCOUNTER → 2023-02-18 04:10 | Outpatient (CLI) | payer MEDICAID, SELFPAY ==
--- NOTE | 2023-02-18 08:15 | DI.US_ITS ---
Exam(s) US OB F/U FACIAL/LVOT/RVOT EXAM: US OB F/U FACIAL/LVOT/RVOT CLINICAL HISTORY: F/U PLACENTA LOCATION,o44.42. TECHNIQUE: Transabdominal obstetrical ultrasound performed. COMPARISON: US US OB CERVICAL LENGTH from 01/02/2023 FINDINGS: Number of fetuses: 1 position: CEPHALIC Placental location: There is a grade 1 anterior placenta. The placental tip is 6.2 cm from the inter nal os. No evidence of previa. Heart Rate: 155bpm IMPRESSION: 1. Single live intrauterine gestation as above. 2. There is no evidence of placenta previa. DATA REPOSITORY:
== END ==
PROVIDERS: PCP Family Medicine; Visit Provider Advanced Practice Midwife
DX: O44.42 Low lying placenta NOS or without hemorrhage, second trimester (principal)
CPT/HCPCS: 76815

== ENCOUNTER 2023-02-18 04:43 | Outpatient (CLI) | payer MEDICAID, SELFPAY ==
[2023-02-18 10:06] LABS: HCT 37.4 % (36.0-46.0); HGB 12.3 g/dL (11.2-15.7); MCH 30.4 pg (27.0-33.0); MCHC 32.9 % (32.0-36.0); MCV 92 fL (80-95); MPV 8.7 fL (8.0-11.0); Platelet Count 262 10^3/uL (130-400); RBC 4.05 10^6/uL (3.93-5.22); RDW 12.5 % (11.7-14.6); RDW-SD 42.7 fL; WBC 10.08 10^3/uL (4.4-10.8)
[2023-02-18 10:26] LABS: ALT 17 U/L (14-59); AST 13 U/L (15-37); Albumin 2.9 g/dL (3.4-5.0); Alkaline Phosphatase 64 U/L (46-116); BUN 7 mg/dL (7-18); Bilirubin, Total 0.2 mg/dL (0.2-1.0); CREATININE 0.6 mg/dL (0.55-1.02); Calcium 9.1 mg/dL (8.5-10.1); Chloride 105 mmol/L (98-107); Estimated GFR 129.27 (mL/min/1.73m2); Glucose 116 mg/dL (74-106); Sodium 138 mmol/L (136-145)
[2023-02-18 10:35] LABS: TSH (W/Ref FT4) 1.49 uIU/mL (0.36-3.74)
[2023-02-18 11:39] LABS: Glucose,1 Hr (Glucola) 119 mg/dL (80-140)
== END 2023-02-18 04:44 | disposition home or self-care (01) ==
LOC: LBO 04:43
PROVIDERS: Advanced Practice Midwife; Nurse Practitioner; PCP Family Medicine; Visit Provider Advanced Practice Midwife
DX: Z34.93 Encounter for supervision of normal pregnancy, unspecified, third trimester (principal); R00.0 Tachycardia, unspecified; R06.09 Other forms of dyspnea; R53.83 Other fatigue
CPT/HCPCS: 36415; 80053; 82950; 85027; 84443

== ENCOUNTER 2023-03-21 14:03 | Outpatient (REF) | payer MEDICAID, SELFPAY ==
[2023-03-21 15:02] LABS: Fetal Fibronectin Negative (Negative)
== END 2023-03-21 14:04 | disposition home or self-care (01) ==
LOC: LBN 14:03
PROVIDERS: PCP Family Medicine; Visit Provider Advanced Practice Midwife
DX: O26.893 Other specified pregnancy related conditions, third trimester (principal); R10.2 Pelvic and perineal pain; N89.8 Other specified noninflammatory disorders of vagina
CPT/HCPCS: 82731; 87086; 87480; 87510; 87660

== ENCOUNTER 2023-04-01 21:50 | Observation (INO) | payer MEDICAID, SELFPAY ==
[2023-04-01 21:21] VITALS: BP 120/72; PULSE 88
[2023-04-01 21:31] VITALS: BP 120/72; PULSE 88; RESP 16
--- NOTE | 2023-04-01 21:53 | HPE_ITS ---
Date of service: 04/01/23 Time of Service: 21:53 Assessment and Plan Assessment and plan (1) Premature uterine contractions causing threatened premature labor in third trimester: Status: Acute Assessment and plan: A: 22 yo @ 33 wks, hx of previous 36 wk PTB Cvx 1/50% posterior and firm, vtx -3, intact membranes, wilson score=3 Irregular contractions noted per toco, pt somewhat uncomfortable fFN and VPS done 11 days ago were negative Cervical length check @ 20 wks was nml (5.5 cm) Previously noted low placenta resolved per 27 wk ultrasound UA on arrival is neg & well diluted P: Consultation done with Dr. Carter Given hx of PTB will give celestone 12 mg IM now and repeat in 24 hrs Begin Nifedipine, 10 mg initially, may repeat within first hour, continue q 4-6 hrs Observation for 24 hrs minimum, oral hydration and regular diet Recheck cvx prn, encourage pt to sleep, bedrest with BRP's OB-HPI Labor/Delivery History of Present Illness Reason for Visit: R/O PTL Chief Complaint: Uterine Contractions (uncomfortable contractions every 10 minutes since 1830 this evening, has been feeling off all day, lower abd pressure and back pain, increased vaginal discharge. No recent coitus, no bleeding, no gross SROM, no nausea or vomiting.). ELOY Calculator Estimated Delivery Date Method Current WG Current Estimate 05/20/23 LMP (Certain) 33w 0d Other Estimates 05/21/23 Ultrasound #1 32w 6d 05/22/23 Ultrasound #2 32w 5d History of Present Expected Delivery Route/Plan - CNM FOB - Sarthak BellUrvashi (2nd baby together) BB no circ Rubella and Varicella non immune, plan vaccines Specific Issues/Plan 1. History of kidney stones- no symptoms x 8 years 2. History of back pain-No treatment 3. Genetic testing - panorama: low risk male, CF and AFP declined. 4. History of difficulty and inverted nipples, 36 wk delivery. Offer visit____ 5. History of labor at 33-34 weeks and transferred to [facility], with delivery at 36 weeks 5a. Cervical length at 20 wks is nml, per MD consult, no other cervical length US indicated 5b. Placenta 1.8 cm from os on transvaginal scan @ 20 wks, will recheck on 28 wks - resolved 5c. Pt desires to be checked for BV periodically in 3rd trimester 5d. Frequent contractions at 31 + 3 weeks - FFN neg, Vag path screen negative 6. Non immune to Varicella and Rubella - accepts vaccines 7. History of tachycardia - Holter x [address] [place] [address] Del Toro - sinus tachycardia, no arrhythmia. Nml TSH at initial OB. Assessment: History Reviewed & Current Review of Systems Narrative: ROS reviewed, noncontributory other than HPI PFSH All Active Problems (Updated 04/01/23 @ 22:05 by Flavia Dejesus) Premature uterine contractions causing threatened premature labor in third trimester (Acute) Pelvic pressure in (Acute) Vaginal discharge (Acute) Tachycardia (Acute) Inverted nipple (Acute) Previous delivery, antepartum (Acute) Maternal varicella, non-immune (Acute) Rubella non-immune status, antepartum (Acute) (Acute) Medical History (Updated 04/01/23 @ 22:05 by Flavia Dejesus) Low lying placenta nos or without hemorrhage, second trimester resolved @ 27 wks Recurrent acute otitis media Family history of coronary arteriosclerosis Post-concussion headache Learning difficulty (04/21/13) IEP in place Ureteral stone (02/02/16) Kidney stones hospitalized 2014 and 2018 Surgical History Myringotomy w/ PE (pressure equalizing) tubes Family History Other Personal history of malignant neoplasm MGM Father Essential hypertension Heart disease Mother Asthma Diabetes Essential hypertension Social History (Updated 10/30/22 @ 09:38 by Janis Jean CNM) Smoking/Tobacco Use Status: Former Tobacco Use Tobacco: How many years used: 1 Smoking risk assessment performed?: Yes Alcohol Intake: current Alcohol Intake frequency: holidays/special occasions only Drug use: Occasionally Substance use type: former substance user Date of last use: marijuana Adopted: No Caregiver/Support person: No Foster care: No Household members: children Housing: apartment Number of Children: 1 Communication Needs: None Education Level: high school Do you need help understanding health information?: Never current occupation: PARTICIPANT ADMINISTRATOR Pets and animals: No Sexually active: No Do you think of yourself as: straight/heterosexual Current gender identity: female What is your relationship status?: never How often do you talk on the phone with friends or family?: three or more times per week How often do you get together with friends or relatives?: three or more times per week Do you belong to any clubs or organized social groups?: no Panel score (0-1 are the most socially isolated patients): 1 What type of physical activity do you participate in: walking Duration: 60-90 minutes/day Frequency: 5-6 times per week Maryellen/Yazidism: None Special maryellen needs: No Seatbelt use: always Helmet use: No Drive intox 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 Date GA/Weeks # Preg Succ Route Wgt Sex Labor Lgth Anesth esia Location Prov Complic 03/23/19 36 No Yes vaginal 6 lb 4 oz Female 8 K. M JAREK day Delivery Date: 03/23/19 Last Updated by: Janis Jean CNM No complications. Spontaneous labor. Mother with perineal and periurethral abrasions not needing repair. Meds Allergies and Home Medications Allergies Allergy/AdvReac Type Severity Reaction Status Date / Time No Known Allergies Allergy Verified 03/21/23 12:59 Home Medications Medication Instructions Recorded Confirmed Type vitamin with calcium 1 tab PO DAILY #90 tabs 09/17/22 03/21/23 Rx no.72-iron 27 mg-folic acid 1 mg tablet Exam Physical Exam Vital signs: Pulse Resp BP 88 16 120/72 04/01/23 21:31 04/01/23 21:31 04/01/23 21:31 Vital Signs Reviewed: Yes Constitutional Constitutional: no acute distress, average body habitus and cooperative Detailed Labor and Delivery Exam Dilation: 1 Effacement (%): 50 station: -3 Cervix position: posterior Consistency: medium WILSON Score(Cervical Ripeness Score): 3 Amniotic Membrane Status: Intact Monitor Mode: External Contraction Frequency(min): q3-6, irreg Contraction Duration(sec): 50-70 Contraction Intensity: Mild Fetus A Heart Rate Baseline: 135 Monitor Accelerations: 15 X 15 Monitor Decelerations: None Variability: Moderate (6-25 BPM) Presentation: Cephalic Categories: Category I HEENT Exam HEENT Exam: Normal Neck Exam Neck Exam: Normal Chest/Brest/Axilla Exam Chest Exam: Normal Breast Exam Breast Exam: Not Done Respiratory Exam Respiratory Exam: Normal Cardiovascular Exam Cardiovascular Exam: Normal Abdominal Exam Abdominal Exam: Normal (Gravid, S=D, nontender, soft between contrx) Rectal Exam Rectal Exam: Normal Exam Exam: Normal (SSE performed, moderate amt creamy white/yellow vaginal mucous noted, fFN and GBS collected, no signs of ROM) Extremities Exam Extremities Exam: Normal Back/Spine/Pelvis Exam Back Exam: Normal Pelvis Adequate: Yes (proven to 6'4) Skin Exam Skin Exam: Normal Neurological Exam Neurological Exam: Normal Psychiatric Exam Psychiatric Exam: Normal Results Results Group Beta Strep: Done-Result Unknown Blood Type: O+ Rubella Status: Nonimmune Varicella Immunity: Nonimmune Risk Assessment Risk for Shoulder Dystocia Historical/Initial OB: NEGATIVE FOR: Pelvic Abnormality, Pre- BMI>30, Previous Shoulder Dystocia or Previous Macrosomia Increased Risk?: No Risk for Pre-Eclampsia Daily Dose ASA Indicated: No Yes, if one or more: NEGATIVE FOR: Hx Pre-E/Gest HTN, Chronic HTN, Multiple Gestation, Pre-gestational DM, Renal Disease, Systemic Lupus or APA Syndrome Yes, if 2 or more: NEGATIVE FOR: Nulliparity, Age>= 35 yrs, >10yr btwn pregnancies, BMI>30, ethinicty, Mother/Sister w/ Pre-E or Previous IUGR Risk for Post- Hemorrhage Initial: NEGATIVE FOR: Multiple Gestation, Previous PPH, Known Clotting Deficiency, Grand Multiparity or Anticoagulation At Risk?: No Risks Reviewed Risks Reviewed Upon Admission: Yes
[2023-04-01] MEDS: NIFEdipine 10 MG CAP PO ×3 (21:55→23:15)
[2023-04-01 21:58] VITALS: BP 116/66; PULSE 91; TEMP 36.3
[2023-04-01] MEDS: Betamet Acet/Betamet Na Ph Inj. 30 MG/5 ML 12 MG IM (22:00)
[2023-04-01 22:31] VITALS: BP 110/63; PULSE 93
[2023-04-01 22:38] LABS: Fetal Fibronectin Negative (Negative)
[2023-04-01 23:13] VITALS: BP 116/60; PULSE 84
--- NOTE | 2023-04-02 00:15 | PGE_ITS ---
Date of Service Date of service: 04/02/23 Time of Service: 00:15 Assessment and Plan Assessment and plan (1) Premature uterine contractions causing threatened premature labor in third trimester: Status: Acute Assessment and plan: A: Threatened PTL @ 33 wks Category 1 tracing, no palpable cvx change since arrival P: Nifedipine 20 mg PO q 3 hrs Continuous EFM through the night GBS and UC&S pending Encourage sleep/rest, continue oral hydration 2nd celestone injection @ 24 hrs Recheck cvx for change prn and in 3-4 hrs Subjective Subjective Patient reports: no new complaints, pain is less, tolerating liquids well and tolerating a regular diet Interval history since last seen: voiding qs, resting in bed watching TV with . States her contractions still hurt but they are further apart and not as strong, denies bleeding or ROM. Objective Last Vital Signs Temp 97.3 F L 04/01/23 21:58 Pulse 84 04/01/23 23:13 Resp 16 04/01/23 21:31 BP 116/60 04/01/23 23:13 Laboratory Results - last 24 hr 04/01/23 21:15 Fibronectin Negative Objective Narrative Objective Narrative: VSS, UA & fFN are negative GBS and UC&S pending Category 1 tracing, Has had 3 doses of Nifedipine 10 mg PO q30 minutes Contractions are mild and irregular q5-7 minutes Pt denies ABREU, BP stable Cvx rechecked (2.5 hrs after initial exam), unchanged @ 1/50% posterior, vtx -2/-3 Time Spent with Patient Time Spent with Patient: 25-34 minutes Time was spent: preparing to see the patient(eg.review tests), obtaining and/or reviewing separately otained hiistory, ordering medications,tests, procedures, referring, communicating with other health critical care unit manager and counseling the patient
[2023-04-02 02:25] VITALS: BP 110/56; PULSE 93
[2023-04-02] MEDS: NIFEdipine 10 MG CAP 20 MG PO ×3 (02:27→08:44)
[2023-04-02 05:08] VITALS: BP 105/57; PULSE 94
[2023-04-02] MEDS: Acetaminophen 325 MG TAB 650 MG PO (05:47)
--- NOTE | 2023-04-02 06:21 | W.PM.PROGNOT ---
Date of Service Date of service: 04/02/23 Time of Service: 06:21 Assessment and Plan Assessment and plan (1) Premature uterine contractions causing threatened premature labor in third trimester: Status: Acute Assessment and plan: A: No cvx change, stable condition Collaborative care P: Continue Nifedipine 20 mg PO Q3-4 hrs 2nd celestone dose @ 24 hrs Ultrasound today for EFW/JESSICA (ordered) Hand-off to oncoming CNM/MD Subjective Subjective Patient reports: no new complaints Interval history since last seen: Has slept very little during the night, reports contractions have not gone away, some are more uncomfortable than others. Had tylenol for a ABREU earlier this morning. Objective Last Vital Signs Temp 97.3 F L 04/01/23 21:58 Pulse 94 H 04/02/23 05:08 Resp 16 04/01/23 21:31 BP 105/57 L 04/02/23 05:08 Laboratory Results - last 24 hr 04/01/23 21:15 Fibronectin Negative Objective Narrative Objective Narrative: SVE performed: no change palpable @ 1/50% posterior, vtx -3, intact membranes Category 1 tracing Vital signs stable Time Spent with Patient Time Spent with Patient: <25 minutes Time was spent: preparing to see the patient(eg.review tests), obtaining and/or reviewing separately otained hiistory, ordering medications,tests, procedures and counseling the patient
--- NOTE | 2023-04-02 07:48 | DI.US_ITS ---
Exam(s) US OB JESSICA WEIGHT EXAM: US OB JESSICA WEIGHT CLINICAL HISTORY: interval growth, threatened PTL. TECHNIQUE: Transabdominal obstetrical ultrasound was performed. COMPARISON: Ultrasounds dating back to 12/05/2022 FINDINGS: There is a single viable intrauterine gestation with cardiac activity identified-134 bpm The fetus is presently in cephalic position . Amniotic fluid: There is a normal amount of amniotic fluid with an JESSICA of 16.98cm. Placental location: The placenta is anterior grade 1,with no evidence of placenta previa. Dating parameters place this at approximately 33 weeks and 5 days gestational age, implying ELOY of 05/16/2023. BPD measures 33 weeks and 6 days HC measures 33 weeks and 4 days AC measures 33 weeks and 5 days FL measures 33 weeks and 3 days Estimated weight is 2236 gm-4 pounds 15 ounces Fetus is at the 56th percentile on the Hadlock scale. IMPRESSION:: Viable 3rd trimester gestation, as described above. DATA REPOSITORY:
[2023-04-02 07:49] VITALS: BP 114/66; PULSE 95; RESP 12; TEMP 36.9
[2023-04-02 09:04] VITALS: BP 117/60; PULSE 87; RESP 12
--- NOTE | 2023-04-02 09:51 | W.PM.OBNL1 ---
Date of service: 04/02/23 Time of Service: 08:30 Pelvic Exam Comments: deferred, remains stable and contractions are less frequent. No change when last examined at approximately 0500 today. ROHINI Contractions Monitor Mode: External Contraction Frequency(min): rare Contraction Duration(sec): irregular Fetus A Monitor: External (US) Heart Rate Baseline: 140 Variability: Moderate (6-25 BPM) Categories: Category I Accelerations: 15 X 15 Assessment and Plan Assessment and plan (1) Premature uterine contractions causing threatened premature labor in third trimester: Status: Acute Assessment and plan: 1. Stable with current plan of care 2. Continue to observe today into tommorrow 3. Second dose of betamethasone tonight. 4. This plan was discussed with Dr. Murray and physician agreed with plan. ROHINI Objective Temp Pulse Resp BP 98.4 F 87 12 117/60 04/02/23 07:49 04/02/23 09:04 04/02/23 09:04 04/02/23 09:04 Laboratory Results Fibronectin Negative (Negative) 04/01/23 21:15 Vital Signs Reviewed: Yes Subjective Interval history since last seen: Maryellen appears comfortable. She reports that painful contractions are much less frequent. Denies LOF or vaginal bleeding. Agrees to stay until tomorrow as her next dose of steroid injection is this evening at 2200. ROHINI
--- NOTE | 2023-04-02 11:12 | W.PM.PROGNOT ---
Date of Service Date of service: 04/02/23 Time of Service: 11:00 Assessment and Plan Assessment and plan (1) Premature uterine contractions causing threatened premature labor in third trimester: Status: Acute Assessment and plan: 1. Consult with Dr. Murray done, will decrease Nifedipine to 10mg every 3 hours and also slowly increase her physical activity to see how she does with uterine activity. 2. Will reassess in 2-4 hours or prn. ROHINI Subjective Subjective Interval history since last seen: Maryellen continues to be comfortable. We plan to slowly increase her activity and decrease her Nifedipine to 10mg every 3 hours per consult with Dr. Murray. ROHINI Objective Last Vital Signs Temp 98.4 F 04/02/23 07:49 Pulse 87 04/02/23 09:04 Resp 12 04/02/23 09:04 BP 117/60 04/02/23 09:04 Laboratory Results - last 24 hr 04/01/23 21:15 Fibronectin Negative Time Spent with Patient Time Spent with Patient: <25 minutes Time was spent: counseling the patient and care coordination
[2023-04-02] MEDS: NIFEdipine 10 MG CAP PO ×5 (11:25→20:22)
[2023-04-02 16:09] VITALS: BP 118/59; PULSE 93; PULSE 94; TEMP 36.9; O2SAT 96
--- NOTE | 2023-04-02 16:26 | W.PM.OBNL1 ---
Date of service: 04/02/23 Time of Service: 16:10 Pelvic Exam Comments: VE deferred due to infrequent contractions, no indication. ROHINI Contractions Monitor Mode: Palpation Contraction Frequency(min): rare Contraction Duration(sec): irregular Intensity: Mild Fetus A Monitor: Doppler Heart Rate Baseline: 140 Assessment and Plan Assessment and plan (1) Premature uterine contractions causing threatened premature labor in third trimester: Status: Acute Assessment and plan: 1. consult with Dr. Jaquez done, will continue with 10mg Nifedipine PO but space dose to every 6 hours over night. 2. Discussed plan with patient and she verbalizes understanding of need to inform nursing staff if she is feeling painful contractions more often than every 10 minutes. 3. Plan second dose betamethasone tonight and probable discharge to home in the morning of 04/03. ROHINI Objective Temp Pulse Resp BP Pulse Ox 98.4 F 94 H 12 118/59 L 96 04/02/23 07:49 04/02/23 16:09 04/02/23 09:04 04/02/23 16:09 04/02/23 16:09 Laboratory Results Fibronectin Negative (Negative) 04/01/23 21:15 Vital Signs Reviewed: Yes Subjective Interval history since last seen: Maryellen did well with 10 mg Nifedipine PO at 1430. She got out of bed to shower and had pelvic pressure and a few contractions but everything resolved when resting in bed. Denies LOF or bleeding. ROHINI
[2023-04-02 20:19] VITALS: BP 105/57; PULSE 90
[2023-04-02] MEDS: Betamet Acet/Betamet Na Ph Inj. 30 MG/5 ML 12 MG IM (22:14)
[2023-04-03 02:13] VITALS: BP 108/56; PULSE 78
[2023-04-03] MEDS: NIFEdipine 10 MG CAP PO (02:15)
--- NOTE | 2023-04-03 08:08 | W.PM.OBNL1 ---
Date of service: 04/03/23 Time of Service: 08:08 Pelvic Exam Comments: deferred, no signs of labor at this time. KH Contractions Monitor Mode: Palpation Contraction Frequency(min): rare Contraction Duration(sec): irregular Fetus A Monitor: External (US) Heart Rate Baseline: 130 Variability: Moderate (6-25 BPM) Assessment and Plan Assessment and plan (1) Premature uterine contractions causing threatened premature labor in third trimester: Status: Acute Assessment and plan: 1. Will defer 0830 dose of Nifedipine and assess for 2 hours more, if stil doing well will allow discharge to home with follow up in office in <1 week. 2. PTL warning signs have been reviewed, to call if contractions become closer and stronger or LOF or vaginal bleeding. 3. We discussed that she will have some contractions at home because she will not have as much rest at home, she will try to limit her activity at this time. 4. Note for out of work for 1 week to further assess at next visit for return to work. KH Objective Temp Pulse Resp BP Pulse Ox 98.4 F 78 12 108/56 L 96 04/02/23 16:09 04/03/23 02:13 04/02/23 09:04 04/03/23 02:13 04/02/23 16:09 Laboratory Results Fibronectin Negative (Negative) 04/01/23 21:15 Vital Signs Reviewed: Yes Subjective Interval history since last seen: Maryellen is doing well. Denies regular contractions, bloody vaginal discharge or loss of fluid vaginally. Reports she feels well and is ready to go home today. Agrees to stay until 1000 without next dose of 10mg Nifedipine at 0830. If still doing well will discharge with short interval follow up in office.
[2023-04-03 08:22] VITALS: BP 99/56; PULSE 97
[2023-04-03 09:02] VITALS: BP 99/56; PULSE 97; TEMP 36.8
--- NOTE | 2023-04-03 09:38 | W.OBNST ---
Date of service: 04/03/23 Time of Service: 09:38 NST Evaluation Reason for NST Reasons for Nonstress Test: LABOR Gestational Age Gestational Age in Weeks and Days: 33 Weeks and 2Days Test and Monitor Explained Test/Monitor Explained: Test Explained, Monitor Explained and Patient Verbalized Understanding Vital Signs Blood Pressure: 99/56 Pulse: 97 Temperature: 98.2 F Urine Results Urine Protein: Negative Urine Ketones: Negative Urine Glucose: Negative Urine Blood: Negative NST Information Date on Monitor: 04/03/23 Time on Monitor: 08:19 Date off Monitor: 04/03/23 Time off Monitor: 09:28 Total Time on Monitor: 69 NST Interventions: None Contraction Frequency: q10 NST Evaluation Patient States Movement: Present FHR Baseline: 130 Variability: Moderate 6-25 bpm Accelerations: 15x15 Decelerations: None NST Results: Reactive Note Ultrasound Done: N/A. NST Note Note: NST is reactive and reassuring. Contractions are mild. NST Reviewed and Verified by: Janis Alonso
[2023-04-03 09:39] VITALS: BP 99/56; PULSE 97; TEMP 36.8
--- NOTE | 2023-04-03 09:39 | DSE_ITS ---
Date of service: 04/03/23 Time of Service: 09:39 DS: Diagnosis Discharge Diagnosis (1) Premature uterine contractions causing threatened premature labor in third trimester: Status: Acute Asessment and Plan: 1. Responded well to rest, PO hydration and Nifedipine for uterine contractions. 2. I have reviewed signs of perterm labor and when to present. 3. She has completed a course of Betamet steroid 4. Will see in office in <1 week or prn 5. Note for out of work until next visit given. Discharge Plan Disposition Patient Disposition: Home Condition: Good Discharge Details Reason For Visit: R/O PTL Admit Date/Time: 04/01/23 21:50 Admit Provider: Flavia Dejesus Attending Provider: Flavia Dejesus Primary Care Provider: [facility] Course Hospital Course: PO Nifedipine and PO hydration for uterine contractions at 33 weeks. FFN was negative. She responded well to PO Nifedipine. No medications for more than 8 hours at this point without increase in uterine activity. Will discharge to home with short interval follow up in office and note for out of work until that visit. Home Meds and New Rx's Prescriptions: Continued PNV,calcium 90-bukj-fnftn acid 27 mg iron- 1 mg tablet 1 tab PO DAILY Qty: 90 4RF Rx Instructions: give with food (meal/snack) Discharge Instructions Instructions: Labor (GEN) Activity:: Activity as Tolerated Equipment/Supplies:: No Equipment Needed Diet:: As Tolerated Discharge Orders Discharge Orders: Discharge Order (Routine); Ordered 04/03/23 Ordered By: Janis Alonso OB:DS Summary Summary Procedures: patient, undelivered Contraception Discussed Contraception Discussed: No ( patient), Status at Discharge Functional status at discharge: independent ambulation Overall status at discharge: patient is back to baseline Mental Status: mental status grossly normal Speech and Movement: speech and movement normal Mood: congruent mood Affect: normal affect Time Spent with Patient providing and/or coordinating discharge services: Less than 30 minutes Exam Physical Exam Vital signs: Temp Pulse Resp BP Pulse Ox 98.4 F 97 H 12 99/56 L 96 04/02/23 16:09 04/03/23 08:22 04/02/23 09:04 04/03/23 08:22 04/02/23 16:09 Vital Signs Reviewed: Yes HEENT Exam HEENT Exam: Normal Neck Exam Neck Exam: Normal Respiratory Exam Respiratory Exam: Normal Cardiovascular Exam Cardiovascular Exam: Normal Abdominal Exam Comments: gravid uterus, size equals dates. Rectal Exam Rectal Exam: Not Done Exam Comments: Vaginal exam deferred as patient is not feeling regular contractions at this time. KH Extremities Exam Extremity Exam: Normal Back/Spine/Pelvis Exam Back Exam: Normal Skin Exam Skin Exam: Normal Neurological Exam Neurological Exam: Normal Psychiatric Exam Psychiatric Exam: Normal PFSH All Active Problems Premature uterine contractions causing threatened premature labor in third trimester (Acute) Pelvic pressure in (Acute) Vaginal discharge (Acute) Tachycardia (Acute) Inverted nipple (Acute) Previous delivery, antepartum (Acute) Maternal varicella, non-immune (Acute) Rubella non-immune status, antepartum (Acute) (Acute) Medical History Low lying placenta nos or without hemorrhage, second trimester resolved @ 27 wks Recurrent acute otitis media Family history of coronary arteriosclerosis Post-concussion headache Learning difficulty (04/21/13) IEP in place Ureteral stone (02/02/16) Kidney stones hospitalized 2014 and 2019 Surgical History Myringotomy w/ PE (pressure equalizing) tubes Family History Other Personal history of malignant neoplasm MGM Father Essential hypertension Heart disease Mother Asthma Diabetes Essential hypertension Social History Smoking/Tobacco Use Status: Former Tobacco Use Tobacco: How many years used: 1 Smoking risk assessment performed?: Yes Alcohol Intake: current Alcohol Intake frequency: holidays/special occasions only Drug use: Occasionally Substance use type: former substance user Date of last use: marijuana Adopted: No Caregiver/Support person: No Foster care: No Household members: children Housing: apartment Number of Children: 1 Communication Needs: None Education Level: high school Do you need help understanding health information?: Never current occupation: [employer] Pets and animals: No Sexually active: No Do you think of yourself as: straight/heterosexual Current gender identity: female What is your relationship status?: never How often do you talk on the phone with friends or family?: three or more times per week How often do you get together with friends or relatives?: three or more times per week Do you belong to any clubs or organized social groups?: no Panel score (0-1 are the most socially isolated patients): 1 What type of physical activity do you participate in: walking Duration: 60-90 minutes/day Frequency: 5-6 times per week Maryellen/Church: None Special maryellen needs: No Seatbelt use: always Helmet use: No Drive intox or ride w/intox local owner operator truck driver: No Do you feel safe at home: Yes Do you feel safe in your relationship?: Yes Female Reproductive History Menstrual Age of Menarche: 14 Duration of menses: <3 days control method: pills (failed bcm.) History History 2 Para 1 Hx # Term Pregnancies 0 Multiple births 0 Hx # Pregnancies 1 Ectopic pregnancies 0 AB induced 0 Hx Number of Living Children 1 AB spontaneous 0 Past Pregnancies Del. Date GA/Weeks # Preg Succ Route Wgt Sex Labor Lgth Anesth esia Location [facility] 03/23/19 36 No Yes vaginal 6 lb 4 oz Female 8 Vandana. Nicole day CNM Delivery Date: 03/23/19 Last Updated by: Janis Jean CNM No complications. Spontaneous labor. Mother with perineal and periurethral abrasions not needing repair. DS: Data Vitals/I&O Vitals and I&O: Vital Signs Temperature 98.4 F 04/02/23 16:09 Temperature 98.2 F 04/03/23 09:39 Temperature Source Oral 04/02/23 16:09 Pulse 97 H 04/03/23 08:22 Pulse 97 04/03/23 09:39 Pulse Rhythm Regular 04/01/23 21:31 Respiratory Rate 12 04/02/23 09:04 Blood Pressure 99/56 L 04/03/23 08:22 Blood Pressure 99/56 04/03/23 09:39 Pulse Oximetry 96 04/02/23 16:09 Oxygen Delivery Method Room Air 04/01/23 21:31 Oxygen Flow Rate 0 04/01/23 21:31 Intake & Output 04/02/23 04/02/23 04/03/23 11:59 23:59 11:59 Intake Total 500 / 500 Output Total 500 / 500 Balance 0 / 0 Intake: Oral 500 / 500 Output: Urine 500 / 500 Data Completed and Pending Labs on day of discharge: 04/01/23 21:15 Vaginal/Rectal Group B Streptococcus Culture - Pending Preliminary micro results at discharge 04/01/23 21:15 Urine Culture - Preliminary Urine - Clean Catch Gram Positive Huma,Mixed 04/01/23 21:15 Group B Streptococcus Culture - Pending Vaginal/Rectal
== END 2023-04-03 10:15 | disposition home or self-care (01) ==
LOC: BCD 22:08 → OBS 22:08
PROVIDERS: Admitting Provider Advanced Practice Midwife; PCP Family Medicine; Visit Provider Advanced Practice Midwife
DX: O60.03 Preterm labor without delivery, third trimester (principal); Z3A.33 33 weeks gestation of pregnancy; Z87.891 Personal history of nicotine dependence
CPT/HCPCS: 76816; 59025; 82731; 87081; 87086; J0702

== ENCOUNTER 2023-04-05 18:52 | Outpatient (CLI) | payer MEDICAID, SELFPAY ==
[2023-04-05 20:58] VITALS: BP 119/66; PULSE 92; TEMP 36.6
[2023-04-05 21:17] VITALS: BP 119/66; PULSE 92
--- NOTE | 2023-04-06 02:23 | W.OBNST ---
Date of service: 04/06/23 Time of Service: 23:00 NST Evaluation Reason for NST Reasons for Nonstress Test: LABOR Gestational Age Gestational Age in Weeks and Days: 33 Weeks and 4Days Test and Monitor Explained Test/Monitor Explained: Patient Verbalized Understanding Vital Signs Blood Pressure: 119/66 Pulse: 92 Temperature: 97.9 F NST Information Date on Monitor: 04/05/23 Time on Monitor: 20:53 NST Interventions: None NST Evaluation Patient States Movement: Present FHR Baseline: 140 Variability: Moderate 6-25 bpm Accelerations: 15x15 and Prolonged Decelerations: None NST Results: Reactive Note Ultrasound Done: N/A. NST Note Note: Maryellen reports recurrence of contractions every 5 minutes. Contractions are irregular and brief, 30-40 seconds. Mild to palpation. SVE performed and cervix post/0.5 cms/50% and vertex ballotable. This is unchanged from admission 04/01 for labor. Maryellen was given the option to return home to rest of stay for observation . She opted to go home and try to rest. Signs of labor reviewed. NST Reviewed and Verified by: Janis Jean
[2023-04-06 02:26] VITALS: BP 119/66; PULSE 92; TEMP 36.6
== END 2023-04-05 21:54 | disposition home or self-care (01) ==
LOC: BCD 18:52 → OBS 20:57
PROVIDERS: PCP Family Medicine; Visit Provider Advanced Practice Midwife
DX: O47.03 False labor before 37 completed weeks of gestation, third trimester (principal); Z3A.33 33 weeks gestation of pregnancy
CPT/HCPCS: 59025

== ENCOUNTER 2023-04-13 01:37 | Inpatient (IN) | payer MEDICAID, SELFPAY ==
[2023-04-13] VITALS (18 sets, daily range): BP systolic 97–140; BP diastolic 53–100; PULSE 81–107; RESP 16–20; TEMP 36.3–37.1
--- NOTE | 2023-04-13 01:27 | W.PM.OBHPL1 ---
Date of service: 04/13/23 Time of Service: Assessment and Plan Assessment and plan (1) labor in third trimester: Status: Acute Assessment and plan: 1. due to regular contractions and bulging membranes 3cm 90% decision made with Dr. Jaquez's consultation to keep patient here and deliver inform Pediatric provider of patient's arrival and plan. 2. IV hydration and support labor, expect NVD 3. Recently did course of betamet and had negative GBS last week. Will avoid antibiotics as membranes are intact, GBS negative and afebrile unless they are desires by Pediatric provider. Qualifiers: Fetus number: single or unspecified fetus OB-HPI Labor/Delivery History of Present Illness Reason for Visit: Rule out Labor Chief Complaint: Uterine Contractions. ELOY Calculator Estimated Delivery Date Method Current WG Current Estimate 05/20/23 LMP (Certain) 34w 5d Other Estimates 05/21/23 Ultrasound #1 34w 4d 05/22/23 Ultrasound #2 34w 3d Comments: Maryellen reports contractions became more regular and strong at approximately 2300 04/12/23. Denies LOF or bleeding. Baby has been active. She is very uncomfortable with contractions. KH History of Present Expected Delivery Route/Plan - CNM FOB - Sarthak Landin (2nd baby together) BB no circ Rubella and Varicella non immune, plan vaccines GBS neg Specific Issues/Plan 1. History of kidney stones- no symptoms x 8 years 2. History of back pain-No treatment 3. Genetic testing - panorama: low risk male, CF and AFP declined. 4. History of difficulty and inverted nipples, 36 wk delivery. Offer visit____ 5. History of labor at 33-34 weeks and transferred to [facility] [place], with delivery at 36 weeks 5a. Cervical length at 20 wks is nml, per MD consult, no other cervical length US indicated 5b. Placenta 1.8 cm from os on transvaginal scan @ 20 wks, will recheck on 28 wks - resolved 5c. Pt desires to be checked for BV periodically in 3rd trimester 5d. Frequent contractions at 31 + 3 weeks - FFN neg, Vag path screen negative 5e. 04/01 -Admitted with contractions at 33 weeks, received steroids, 6. Non immune to Varicella and Rubella - accepts vaccines 7. History of tachycardia - Holter x [address] [place] [address] Del Toro - sinus tachycardia, no arrhythmia. Nml TSH at initial OB. Assessment: History Reviewed & Current Review of Systems All systems reviewed & are unremarkable except as noted in HPI and below Genitourinary Comments: uterine contractions PFSH All Active Problems (Updated 04/13/23 @ 01:33 by Janis Alonso CNM) labor in third trimester (Acute) Premature uterine contractions causing threatened premature labor in third trimester (Acute) Pelvic pressure in (Acute) Vaginal discharge (Acute) Tachycardia (Acute) Inverted nipple (Acute) Previous delivery, antepartum (Acute) Maternal varicella, non-immune (Acute) Rubella non-immune status, antepartum (Acute) (Acute) Medical History Low lying placenta nos or without hemorrhage, second trimester resolved @ 27 wks Recurrent acute otitis media Family history of coronary arteriosclerosis Post-concussion headache Learning difficulty (04/21/13) IEP in place Ureteral stone (02/02/16) Kidney stones hospitalized 2014 and 2018 Surgical History Myringotomy w/ PE (pressure equalizing) tubes Family History Other Personal history of malignant neoplasm MGM Father Essential hypertension Heart disease Mother Asthma Diabetes Essential hypertension Social History Smoking/Tobacco Use Status: Former Tobacco Use Tobacco: How many years used: 1 Smoking risk assessment performed?: Yes Alcohol Intake: current Alcohol Intake frequency: holidays/special occasions only Drug use: Occasionally Substance use type: former substance user Date of last use: marijuana Adopted: No Caregiver/Support person: No Foster care: No Household members: children Housing: apartment Number of Children: 1 Communication Needs: None Education Level: high school Do you need help understanding health information?: Never current occupation: [employer] Pets and animals: No Sexually active: No Do you think of yourself as: straight/heterosexual Current gender identity: female What is your relationship status?: never How often do you talk on the phone with friends or family?: three or more times per week How often do you get together with friends or relatives?: three or more times per week Do you belong to any clubs or organized social groups?: no Panel score (0-1 are the most socially isolated patients): 1 What type of physical activity do you participate in: walking Duration: 60-90 minutes/day Frequency: 5-6 times per week Maryellen/Gnosticism: None Special maryellen needs: No Seatbelt use: always Helmet use: No Drive 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 Date GA/Weeks # Preg Succ Route Wgt Sex Labor Lgth Anesthesia Location Prov Complic 03/23/19 36 No Yes vaginal 6 lb 4 oz Female 8 Christine Jean CNM Delivery Date: 03/23/19 Last Updated by: Janis Jean CNM No complications. Spontaneous labor. Mother with perineal and periurethral abrasions not needing repair. Meds Allergies and Home Medications Allergies Allergy/AdvReac Type Severity Reaction Status Date / Time No Known Allergies Allergy Verified 04/13/23 01:31 Home Medications Medication Instructions Recorded Confirmed Type vitamin with calcium 1 tab PO DAILY #90 tabs 09/17/22 04/09/23 Rx no.72-iron 27 mg-folic acid 1 mg tablet Exam Physical Exam Vital signs: Pulse BP 107 H 129/73 04/13/23 01:12 04/13/23 01:12 Vital Signs Reviewed: Yes Constitutional Constitutional: mild distress (contractions) Detailed Labor and Delivery Exam Dilation: 3 Effacement (%): 90 station: -1 Position: BETHANIE Cervix position: posterior Consistency: soft Wilson Score: Cervical Points Exam 0 1 2 3 Dilation Closed 1-2cm 3-4 cm 5-6cm Effacement 0-30% 40-50% 60-70% 80% Consistency Firm Medium Soft Station -3 -2 -1,0 +1,+2 Position Posterior Mid Anterior WILSON Score(Cervical Ripeness Score): 9 Amniotic Membrane Status: Intact (bulging) Monitor Mode: External Contraction Frequency(min): 2-4 Contraction Duration(sec): 60 Contraction Intensity: Moderate/Strong Fetus A Heart Rate Baseline: 130 Monitor Accelerations: 15 X 15 Monitor Decelerations: None Variability: Moderate (6-25 BPM) Categories: Category I Est. Weight: 5 lb HEENT Exam HEENT Exam: Normal Neck Exam Neck Exam: Normal Chest/Brest/Axilla Exam Chest Exam: Normal Breast Exam Breast Exam: Not Done Respiratory Exam Respiratory Exam: Normal Cardiovascular Exam Cardiovascular Exam: Normal Abdominal Exam Abdominal Exam: Abnormal ( uterine contractions) Rectal Exam Rectal Exam: Not Done Exam Exam: Normal Extremities Exam Extremities Exam: Normal Back/Spine/Pelvis Exam Back Exam: Normal Pelvis Adequate: Yes Skin Exam Skin Exam: Normal Neurological Exam Neurological Exam: Normal Psychiatric Exam Psychiatric Exam: Normal Risk Assessment Risk for Shoulder Dystocia Historical/Initial OB: NEGATIVE FOR: Pelvic Abnormality, Pre- BMI>30, Previous Shoulder Dystocia or Previous Macrosomia Risk for Pre-Eclampsia Yes, if one or more: NEGATIVE FOR: Hx Pre-E/Gest HTN, Chronic HTN, Multiple Gestation, Pre-gestational DM, Renal Disease, Systemic Lupus or APA Syndrome Yes, if 2 or more: NEGATIVE FOR: Nulliparity, Age>= 35 yrs, >10yr btwn pregnancies, BMI>30, ethinicty, Mother/Sister w/ Pre-E or Previous IUGR Risk for Post- Hemorrhage Initial: NEGATIVE FOR: Multiple Gestation, Previous PPH, Known Clotting Deficiency, Grand Multiparity or Anticoagulation Risks Reviewed Risks Reviewed Upon Admission: Yes (low risk for shoulder or PPH at this time)
[2023-04-13 02:00] LABS: HCT 36.3 % (36.0-46.0); HGB 12.1 g/dL (11.2-15.7); MCH 29.7 pg (27.0-33.0); MCHC 33.3 % (32.0-36.0); MCV 89 fL (80-95); MPV 8.8 fL (8.0-11.0); Platelet Count 248 10^3/uL (130-400); RBC 4.08 10^6/uL (3.93-5.22); RDW 12.1 % (11.7-14.6); RDW-SD 39.5 fL; WBC 9.67 10^3/uL (4.4-10.8)
[2023-04-13] MEDS: Lactated Ringers 500 ML 1000 ML IV (02:30)
--- NOTE | 2023-04-13 02:41 | W.PM.OBNL1 ---
Date of service: 04/13/23 Time of Service: 02:38 Pelvic Exam Dilation: 4 Effacement (%): 90 station: -1 Position: BETHANIE Cervix Position: mid Consistency: soft Contractions Monitor Mode: External Contraction Frequency(min): 2-4 Contraction Duration(sec): 60-80 Intensity: Moderate/Strong Fetus A Monitor: External (US) Heart Rate Baseline: 130 Variability: Moderate (6-25 BPM) Categories: Category I Accelerations: 15 X 15 Decelerations: None Amniotic Membrane Status: Intact (bulging) Assessment and Plan Assessment and plan (1) labor in third trimester: Status: Acute Assessment and plan: 1. Will continue to support labor and expect NVD. Plan to call Pediatric provider as we get closer to delivery 2. I have offered pain management options, patient declines any additional measures, is working well with contractions by talking through them with her partner. KH Qualifiers: Fetus number: single or unspecified fetus Objective Pulse BP 107 H 129/73 04/13/23 01:12 04/13/23 01:12 Laboratory Results WBC 9.67 10^3/uL (4.4-10.8) 04/13/23 01:48 RBC 4.08 10^6/uL (3.93-5.22) 04/13/23 01:48 Hgb 12.1 g/dL (11.2-15.7) 04/13/23 01:48 Hct 36.3 % (36.0-46.0) 04/13/23 01:48 MCV 89 fL (80-95) 04/13/23 01:48 MCH 29.7 pg (27.0-33.0) 04/13/23 01:48 MCHC 33.3 % (32.0-36.0) 04/13/23 01:48 RDW 12.1 % (11.7-14.6) 04/13/23 01:48 Plt Count 248 10^3/uL (130-400) 04/13/23 01:48 MPV 8.8 fL (8.0-11.0) 04/13/23 01:48 Patient ABO/Rh O Positive 04/13/23 01:48 Antibody Screen NEGATIVE 04/13/23 01:48 Vital Signs Reviewed: Yes Subjective Interval history since last seen: patient complaint of urge to have BM. KH Results Hemoglobin/Hematocrit: Hgb 12.1 g/dL (11.2-15.7) 04/13/23 01:48 Hct 36.3 % (36.0-46.0) 04/13/23 01:48
--- NOTE | 2023-04-13 05:34 | W.PM.OBNL1 ---
Date of service: 04/13/23 Time of Service: 05:30 Pelvic Exam Dilation: 8 Effacement (%): 100 station: -1 Position: BETHANIE Cervix Position: anterior Consistency: soft Comments: bulging membranes and bloody show Contractions Monitor Mode: External Contraction Frequency(min): 2-4 Contraction Duration(sec): 60 Intensity: Moderate/Strong Fetus A Monitor: External (US) Heart Rate Baseline: 130 Variability: Moderate (6-25 BPM) Categories: Category I Amniotic Membrane Status: Intact Assessment and Plan Assessment and plan (1) labor in third trimester: Status: Acute Assessment and plan: 1. Continue present management 2. Will notify pediatrics of impending delivery of baby at 34 w 5d per their request to attend 3. Expect NVD. Qualifiers: Fetus number: single or unspecified fetus Objective Temp Pulse Resp BP 98.4 F 107 H 20 129/73 04/13/23 02:37 04/13/23 02:37 04/13/23 02:37 04/13/23 02:37 Laboratory Results WBC 9.67 10^3/uL (4.4-10.8) 04/13/23 01:48 RBC 4.08 10^6/uL (3.93-5.22) 04/13/23 01:48 Hgb 12.1 g/dL (11.2-15.7) 04/13/23 01:48 Hct 36.3 % (36.0-46.0) 04/13/23 01:48 MCV 89 fL (80-95) 04/13/23 01:48 MCH 29.7 pg (27.0-33.0) 04/13/23 01:48 MCHC 33.3 % (32.0-36.0) 04/13/23 01:48 RDW 12.1 % (11.7-14.6) 04/13/23 01:48 Plt Count 248 10^3/uL (130-400) 04/13/23 01:48 MPV 8.8 fL (8.0-11.0) 04/13/23 01:48 Patient ABO/Rh O Positive 04/13/23 01:48 Antibody Screen NEGATIVE 04/13/23 01:48 Subjective Interval history since last seen: reports bloody discharge Results Hemoglobin/Hematocrit: Hgb 12.1 g/dL (11.2-15.7) 04/13/23 01:48 Hct 36.3 % (36.0-46.0) 04/13/23 01:48
--- NOTE | 2023-04-13 06:17 | PLAC_PTH ---
PATIENT: Maryellen Velasco LOC: OBS U#:[id number] AGE/SX: 22/F ROOM: OBS.303 RE04/13/[address]: Janis Alonso CNM : 2000 BED: A DIS: 04/16/2023 SPEC #: [id number] RECD: 04/15/23 12:56 STATUS: FIORELLA REQ #: [id number] ANNA: 04/13/23 06:[address]: Janis Alonso DEPT: Surgical Specimen RECD BY: Ariana Martinez ENTERED: 04/15/23 12:56 SP TYPE: PLAC OTHR DR: Tacos Del Toro DO Tissues: 1 - PLACENTA (3RD TRIMESTER) Procedures: GROSS AND MICRO LEVEL 5 Comments: [id number]
--- NOTE | 2023-04-13 06:26 | OBVDS_ITS ---
Date of service: 04/13/23 Time of Service: 06:26 OB Labor/ Delivery Information Baby A Delivery Delivery Method: Spontaneaous Presentation: Cephalic Cephalic Position: Vertex Vertex Position: Right Occipital Posterior Cord Description-Baby A: Nuchal Cord (X 1 loose, reduced before shoulders deliver) and True Knot Amniotic Fluid: Clear Estimated Blood Loss: 250 Delivery Outcome: Liveborn Infant Complications: status Transferred: Remains with Mother (Porter Baggage attending) Note: Maryellen Velasco presented in early labor in the evening of 04/12/23. VE was 3/90/- 2 bulging membranes. She was actively jesse and seemed to be too active to transfer. Consultation between CNM and OB Physician Dr. Jaquez done and decision to avoid attempt at maternal transfer was made. Labor progressed over next 7 hours and patient felt urge to push at 0520. Pediatric provider was called to attend in accordance with previous consultation between Porter Baggage and CNM. Second stage huddle was held, active management of third stage discussed. FHR CAT I throughout labor with baseline 130-140. Maryellen pushed well and SROM occurred at with pushing effort. Baby :Jaylon delivered ROP over intact perineum at 0612 after nuchal cord loose X 1 was reduced. Baby was placed skin to skin and delayed cord clamping was done as baby was vigorous and Pediatric provider felt it was OK to do so. Cord was double clamped and cut by FOB. Cord bloods obtained. Patient felt urge to push and placenta delivered spontaneously, intact at 0617. True know in cord noted at delivery. 3V cord. Placenta appears intact and will be sent to pathology due to status. Mother and baby are in satisfactory condition. Maryellen is going to breast feed her son. Expect normal PP course. If baby requires transfer to another facility will attempt to transfer Maryellen as well. See completed delivery record for weight and measurements. Providers Nurse Snow Shoveler: Janis Alonso Porter Baggage: Yvette Benitez Nurse: Brianna Shaw Nurse: Melinda Velazquez Labor/Delivery Information Number of Babies in Womb: 1 Steroids Given: >24 Hours before Delivery (1 week prior to delivery) Group Beta Strep: Negative Antibiotics Administered: No Rubella Status: Nonimmune Blood Type: O+ Varicella Immunity: Nonimmune Medication in Delivery: used nitrous prior to delivery, no other medications Born En Route: No Maternal Complications: None Shoulder Dystocia: No Stages of Labor Onset of Labor Date: 04/12/23 Onset of Labor Time: 20:00 Complete Dilatation Date: 04/13/23 Complete Dilatation Time: 05:20 Labor - Stage 1 Duration: 9 hours and 20 minutes ROM Baby A: 04/13/23 ROM Baby A: 05:40 Delivery Date-Baby A: 04/13/23 Infant Delivery Time-Baby A: 06:12 Labor Stage 2 Duration: 52 minutes Placenta Delivery Date-Baby A: 04/13/23 Placenta Delivery Time-Baby A: 06:17 Labor-Stage 3 Duration: 5 minutes Total Length of Labor-Baby A: 10 hours and 12 minutes Placenta Status: Delivered (sent to pathology due to labor and delivery) Baby A Infant Gender: Male Gestational Status: Late (34-36.6 wks)
[2023-04-13] MEDS: Acetaminophen 325 MG TAB 650 MG PO ×2 (06:31→19:16)
[2023-04-13] MEDS: Ibuprofen 600 MG TAB PO (06:31)
[2023-04-14] MEDS: Acetaminophen 325 MG TAB 650 MG PO ×2 (03:13→10:30)
--- NOTE | 2023-04-14 09:53 | W.PM.OBPNV1 ---
Date of service: 04/14/23 Time of Service: 09:00 Assessment and Plan Assessment and plan (1) care following vaginal delivery: Status: Acute Assessment and plan: 1. Maryellen is doing well. She is working with nursing and on feeding baby 2. Doing own ADL's 3. Planning depo provera for contraception at 2 weeks PP 4. Discharge to home tomorrow although likely going to be boarding due to baby. Exam Physical Exam Vital signs: Temp Pulse Resp BP 97.4 F L 103 H 16 117/68 04/13/23 20:25 04/13/23 20:25 04/13/23 20:25 04/13/23 20:25 Vital Signs Reviewed: Yes Constitutional Constitutional: no acute distress, average body habitus and cooperative HEENT Exam HEENT Exam: Normal Neck Exam Neck Exam: Normal (normal visual inspection) Respiratory Exam Respiratory Exam: Normal Cardiovascular Exam Cardiovascular Exam: Normal Abdominal Exam Abdomen: Other (normal exam) Fundal Exam Fundus: Below Umbilicus and Firm Comment: small lochia noted. Rectal Exam Rectal Exam: Not Done Exam Perineum: Intact and Normal Extremities Exam Extremity Exam: Normal (denies calf tenderness) and Full ROM Back/Spine/Pelvis Exam Back Exam: Normal Skin Exam Skin Exam: Normal Neurological Exam Neurological Exam: Normal Psychiatric Exam Psychiatric Exam: Normal Results Hemoglobin/Hematocrit: Hgb 12.1 g/dL (11.2-15.7) 04/13/23 01:48 Hct 36.3 % (36.0-46.0) 04/13/23 01:48
[2023-04-14] MEDS: Ibuprofen 600 MG TAB PO (10:30)
[2023-04-14 20:00] VITALS: BP 114/62; PULSE 89; TEMP 36.6
--- NOTE | 2023-04-15 07:28 | DSE_ITS ---
Date of service: 04/15/23 Time of Service: 07:28 DS: Diagnosis Discharge Diagnosis (1) care following vaginal delivery: Status: Acute Asessment and Plan: 1. Normal PP course to date 2. Has good feeding plan and is pumping adequate amounts of breast milk. 3. Will use POP or Depo at 2 week PP visit for contraception, S.O. considering vasectomy as well. 4. RTO 2 and 6 weeks PP. 5. PP warning signs reviewed and educational material on contraception, breast feeding, PP care and PPD given. Discharge Plan Disposition Patient Disposition: Home Condition: Good Discharge Details Reason For Visit: labor in third trimester Admit Date/Time: 04/13/23 01:37 Admit Provider: Janis Alonso Attending Provider: Janis Alonso Primary Care Provider: Tacos Del Toro [place] Hospital Course Hospital Course: NVD over intact perineum at 34w5d. Baby has done well to date but will be remaining today for further feeding and assessment. Maryellen will be discharged but likely will remain as boarder. Pumping and feeding breast milk only, has latched baby once with good success. Home Meds and New Rx's Prescriptions: Continued PNV,calcium 36-rwra-tevpc acid 27 mg iron- 1 mg tablet 1 tab PO DAILY Qty: 90 4RF Rx Instructions: give with food (meal/snack) Discharge Instructions Instructions: Medroxyprogesterone (By injection), Depression (GEN), Control Pills (GEN) Stand Alone Forms: BC Instructions, BC Post Vaginal Deliver Activity:: Activity as Tolerated Equipment/Supplies:: No Equipment Needed Diet:: As Tolerated Discharge Orders Discharge Orders: Discharge Order (Routine); Ordered 04/15/23 Ordered By: Janis Alonos OB:DS Summary Summary Vaginal Delivery Method: Spontaneaous Episiotomy Description: None Laceration Description: None Laceration Extension: N/A Procedures: Baby boy Jaylon Contraception Discussed Contraception Discussed: Yes (will try POP but may change to depo) Contraceptive Plan: Control Pill/Patch and Medroxyprogesterone, Gender-Baby A: Male weight: 4 lb 15.366 oz Status at Discharge Functional status at discharge: independent ambulation Overall status at discharge: patient is back to baseline Mental Status: mental status grossly normal Speech and Movement: speech and movement normal Mood: congruent mood Affect: normal affect Time Spent with Patient providing and/or coordinating discharge services: Less than 30 minutes Exam Physical Exam Vital signs: Temp Pulse Resp BP 97.8 F 89 16 114/62 04/14/23 20:00 04/14/23 20:00 04/13/23 20:25 04/14/23 20:00 Vital Signs Reviewed: Yes Constitutional Constitutional: no acute distress, average body habitus and cooperative HEENT Exam HEENT Exam: Normal Neck Exam Neck Exam: Normal (normal visual inspection) Respiratory Exam Respiratory Exam: Normal Cardiovascular Exam Cardiovascular Exam: Normal Abdominal Exam Abdomen: Other (normal exam) Fundal Exam Fundus: Below Umbilicus and Firm Comment: small lochia noted. KH Rectal Exam Rectal Exam: Not Done Exam Perineum: Intact and Normal Extremities Exam Extremity Exam: Normal (denies calf tenderness) and Full ROM Back/Spine/Pelvis Exam Back Exam: Normal Skin Exam Skin Exam: Normal Neurological Exam Neurological Exam: Normal Psychiatric Exam Psychiatric Exam: Normal PFSH All Active Problems care following vaginal delivery (Acute) Tachycardia (Acute) Inverted nipple (Acute) Previous delivery, antepartum (Acute) Maternal varicella, non-immune (Acute) Rubella non-immune status, antepartum (Acute) (Acute) Medical History Low lying placenta nos or without hemorrhage, second trimester resolved @ 27 wks Recurrent acute otitis media Family history of coronary arteriosclerosis Post-concussion headache Learning difficulty (04/21/13) IEP in place Ureteral stone (02/02/16) Kidney stones hospitalized 2014 and 2019 Surgical History Myringotomy w/ PE (pressure equalizing) tubes Family History Other Personal history of malignant neoplasm MGM Father Essential hypertension Heart disease Mother Asthma Diabetes Essential hypertension Social History Smoking/Tobacco Use Status: Former Tobacco Use Tobacco: How many years used: 1 Smoking risk assessment performed?: Yes Alcohol Intake: current Alcohol Intake frequency: holidays/special occasions only Drug use: Occasionally Substance use type: former substance user Date of last use: marijuana Adopted: No Caregiver/Support person: No Foster care: No Household members: children Housing: apartment Number of Children: 1 Communication Needs: None Education Level: high school Do you need help understanding health information?: Never current occupation: [employer] Pets and animals: No Sexually active: No Do you think of yourself as: straight/heterosexual Current gender identity: female What is your relationship status?: never How often do you talk on the phone with friends or family?: three or more times per week How often do you get together with friends or relatives?: three or more times per week Do you belong to any clubs or organized social groups?: no Panel score (0-1 are the most socially isolated patients): 1 What type of physical activity do you participate in: walking Duration: 60-90 minutes/day Frequency: 5-6 times per week Maryellen/Protestant: None Special maryellen needs: No Seatbelt use: always Helmet use: No 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 Date GA/Weeks # Preg Succ Route Wgt Sex Labor Lgth Anesth esia Location [facility] 03/23/19 36 No Yes vaginal 6 lb 4 oz Female 8 Vandana. Nicole day CNM Delivery Date: 03/23/19 Last Updated by: Janis Jean CNM No complications. Spontaneous labor. Mother with perineal and periurethral abrasions not needing repair. DS: Data Vitals/I&O Vitals and I&O: Vital Signs Temperature 97.8 F 04/14/23 20:00 Temperature Source Oral 04/14/23 20:00 Pulse 89 04/14/23 20:00 Pulse Rhythm Regular 04/14/23 20:00 Respiratory Rate 16 04/13/23 20:25 Blood Pressure 114/62 04/14/23 20:00 Blood Pressure Mean 79 04/14/23 20:00 Oxygen Delivery Method Room Air 04/13/23 02:37 Oxygen Flow Rate 0 04/13/23 02:37 Pain Level 0 04/14/23 04:13 Intake & Output 04/14/23 04/14/23 04/15/23 11:59 23:59 11:59 Other: Urine Color Pale Yellow Urine Appearance Clear Urine Odor None Voiding Methods Toilet
[2023-04-15 08:00] VITALS: BP 125/83; PULSE 89; RESP 17; TEMP 36.7; O2SAT 99
[2023-04-15 19:58] VITALS: BP 110/73; PULSE 103; RESP 16; TEMP 36.6; O2SAT 98
[2023-04-16 07:40] VITALS: BP 107/71; PULSE 94; RESP 14; TEMP 36.9
== END 2023-04-16 10:54 | disposition home or self-care (01) | DRG 807 ==
PROVIDERS: Admitting Provider Advanced Practice Midwife; PCP Family Medicine; Visit Provider Advanced Practice Midwife
DX: O60.14X0 Preterm labor third trimester with preterm delivery third trimester, not applicable or unspecified (principal); Z37.0 Single live birth; Z3A.34 34 weeks gestation of pregnancy; O69.81X0 Labor and delivery complicated by cord around neck, without compression, not applicable or unspecified; O69.2XX0 Labor and delivery complicated by other cord entanglement, with compression, not applicable or unspecified
CPT/HCPCS: 36415; 85027; 86850; 86900; 86901; 88307

== ENCOUNTER 2024-05-08 19:08 | Emergency (ER) | payer MEDICAID, SELFPAY ==
[2024-05-08 19:13] VITALS: BP 127/78; PULSE 91; RESP 16; TEMP 36.7; O2SAT 100
[2024-05-08] MEDS: Cephalexin 500 MG CAP, 4 CAPS/BTL PO (20:36)
[2024-05-08 20:40] VITALS: BP 122/67; PULSE 70; RESP 16; TEMP 36.7; O2SAT 99
--- NOTE | 2024-05-08 23:04 | W.ED.GENAD ---
Discharge Plan Disposition Patient Disposition: Home Condition: Stable Discharge Details Clinical Impression: Abrasion foot/toe Primary Care Provider: Tacos Del Toro ED Provider: Ariana Avina Home Meds and New Rx's Prescriptions: New cephalexin 500 mg tablet 500 mg PO Q6H 10 Days Qty: 40 0RF Discharge Instructions Instructions: Taking care of cuts, scrapes, and puncture wounds, Abrasions ED Additional Instructions: Take antibiotic as prescribed, yogurt daily while on antibiotic you will only need 5 days of antibiotic Motrin Tylenol as needed for pain You may use the crutches inside as needed Return earlier should you have new or worsening complaints including fever, chills, spreading redness Your tetanus was updated in 2019 Referrals: Tacos Del Toro DO [Primary Care Provider] - HPI General Date/Time Provider Initiated Documentation: 05/08/24 19:58. HPI Narrative: This 23-year-old female presents with report of laceration on her left foot work. She she was standing on a stool when it broke and the nail lacerated her foot as she fell. She denies a significant puncture unsure regarding her tetanus. She denies any chance of or any additional complaints at this time. She is otherwise reportedly healthy denies puncture through shoe. Related Data Home Medications ?Medication ?Instructions ?Recorded ?Confirmed cephalexin 500 mg tablet 500 mg PO Q6H 10 days #40 tabs 05/08/24 Previous Rx's ?Medication ?Instructions ?Recorded cephalexin 500 mg tablet 500 mg PO Q6H 10 days #40 tabs 05/08/24 Allergies Allergy/AdvReac Type Severity Reaction Status Date / Time No Known Allergies Allergy Verified 05/08/24 19:12 General Stated Complaint: Orthopedic AV: 4 Exam Narrative Exam Narrative: Alert and oriented 23-year-old female in no acute distress, excellently 3 inch superficial laceration noted to plantar aspect of left foot. Neurovascularly intact sensation intact, no redness or swelling Course Vital Signs Vital signs: Vital Signs Temperature 36.7 C 05/08/24 19:13 Pulse 91 H 05/08/24 19:13 Respiratory Rate 16 05/08/24 19:13 Blood Pressure 127/78 05/08/24 19:13 Pulse Oximetry 100 05/08/24 19:13 Temperature 36.7 C 05/08/24 20:40 Temperature Source Tympanic 05/08/24 19:13 Pulse 70 05/08/24 20:40 Respiratory Rate 16 05/08/24 20:40 Blood Pressure 122/67 05/08/24 20:40 Blood Pressure Position Sitting 05/08/24 19:13 Pulse Oximetry 99 05/08/24 20:40 Oxygen Delivery Method Room Air 05/08/24 19:13 Oxygen Flow Rate 0 05/08/24 19:13 Pain Level 7 05/08/24 20:40 Medical Decision Making 23-year-old female presenting in no acute distress laceration on left foot from a daniela nail. No plantar puncture through shoe, will give Keflex given location and possible puncture, although her exam is quite superficial no obvious foreign body in the suspicion clinically so x-ray was ordered. Neurovascularly intact. Tetanus updated in 2019. Return precautions reviewed and patient expressed understanding. Crutches supplied for comfort wound cleansed and dressing applied. Quality:SDOH Health Related Social Needs: No Data to Display PFSH All Active Problems (Updated 05/08/24 @ 20:29 by NELLIE Blake) Abrasion foot/toe (Acute) care following vaginal delivery (Acute) Tachycardia (Acute) Inverted nipple (Acute) Previous delivery, antepartum (Acute) Maternal varicella, non-immune (Acute) Rubella non-immune status, antepartum (Acute) (Acute) Medical History Low lying placenta nos or without hemorrhage, second trimester resolved @ 27 wks Recurrent acute otitis media Family history of coronary arteriosclerosis Post-concussion headache Learning difficulty (04/21/13) IEP in place Ureteral stone (02/02/16) Kidney stones hospitalized 2014 and 2019 Surgical History Myringotomy w/ PE (pressure equalizing) tubes Family History Other Personal history of malignant neoplasm MGM Father Essential hypertension Heart disease Mother Asthma Diabetes Essential hypertension Social History Smoking/Tobacco Use Status: Former Tobacco Use Tobacco: How many years used: 1 Smoking risk assessment performed?: Yes Alcohol Intake: current Alcohol Intake frequency: holidays/special occasions only Drug use: Occasionally Substance use type: former substance user Date of last use: marijuana Adopted: No Caregiver/Support person: No Foster care: No Household members: children Housing: apartment Number of Children: 1 Communication Needs: None Education Level: high school Do you need help understanding health information?: Never current occupation: [employer] COUN[employer]OR Pets and animals: No Sexually active: No Do you think of yourself as: straight/heterosexual Current gender identity: female What is your relationship status?: never How often do you talk on the phone with friends or family?: three or more times per week How often do you get together with friends or relatives?: three or more times per week Do you belong to any clubs or organized social groups?: no Panel score (0-1 are the most socially isolated patients): 1 What type of physical activity do you participate in: walking Duration: 60-90 minutes/day Frequency: 5-6 times per week Maryellen/Yarsani: None Special maryellen needs: No Seatbelt use: always Helmet use: No Drive intox or ride w/intox electric screw driver operator: No Do you feel safe at home: Yes Do you feel safe in your relationship?: Yes Female Reproductive History Menstrual Age of Menarche: 14 Duration of menses: <3 days control method: pills (failed bcm.) History History 2 Para 2 Hx # Term Pregnancies 0 Multiple births 0 Hx # Pregnancies 1 Ectopic pregnancies 0 AB induced 0 Hx Number of Living Children 2 AB spontaneous 0 Past Pregnancies Del. Date GA/Weeks # Preg Succ Route Wgt Sex Labor Lgth Anesthesia Location [facility] 03/23/19 36 No Yes vaginal 2834.952 g Female 8 Christine Jean CNM 04/13/23 34 No Yes vaginal 2250.952 g Male 10hrs 12min JAREK Castillo Delivery Date: 03/23/19 Last Updated by: Janis Jean CNM No complications. Spontaneous labor. Mother with perineal and periurethral abrasions not needing repair. Delivery Date: 04/13/23 Last Updated by: YENNI Osei; Shoulder cord and true knot; @1min=7; @5min=8
--- NOTE | 2024-05-09 08:06 | NUR.NOTE ---
Access chart to get the diagnosis for [facility] paperwork. Nursing Note:
== END 2024-05-08 20:40 | disposition home or self-care (01) ==
LOC: ER 20:52
PROVIDERS: Emergency Provider Physician Assistant; PCP Family Medicine
DX: S90.812A Abrasion, left foot, initial encounter (principal); W08.XXXA Fall from other furniture, initial encounter; W45.0XXA Nail entering through skin, initial encounter; Y99.0 Civilian activity done for income or pay
CPT/HCPCS: 99283

== ENCOUNTER 2024-05-15 08:57 | Emergency (ER) | payer MEDICAID, SELFPAY ==
[2024-05-15] VITALS (10 sets, daily range): BP systolic 104–127; BP diastolic 61–79; PULSE 81–105; RESP 14–18; TEMP 36.8; O2SAT 99–100
--- NOTE | 2024-05-15 09:47 | W.PC.ACHO1 ---
Registration Status: Primary Language: Preferred Language: ED Information & Data Chief Complaint RespSymp 05/15/24 09:05 Chief Complaint RespSymp 05/15/24 09:01 Triage Note Patient complaining of sore 05/15/24 09:01 throat, congestion, ear pain and fever for 1 week Medical / Surgical History (Last Reviewed 04/15/23 @ 07:30 by Janis Alonso CNM) Family history of coronary arteriosclerosis Kidney stones Learning difficulty (04/21/13) Low lying placenta nos or without hemorrhage, second trimester Post-concussion headache Recurrent acute otitis media Ureteral stone (02/02/16) (Last Reviewed 04/15/23 @ 07:30 by Janis Alonso CNM) Myringotomy w/ PE (pressure equalizing) tubes Most Recent Vital Signs Temperature 36.8 C 05/15/24 09:04 Temperature Source Oral 05/15/24 09:04 Pulse 105 H 05/15/24 09:04 Respiratory Rate 18 05/15/24 09:04 Respiratory Effort Normal, Non-Labored 05/15/24 09:10 Respiratory Depth Normal 05/15/24 09:10 Blood Pressure 127/71 05/15/24 09:04 Blood Pressure Position Sitting 05/15/24 09:04 Pulse Oximetry 100 05/15/24 09:04 Oxygen Delivery Method Room Air 05/15/24 09:04 Oxygen Flow Rate 0 05/15/24 09:04 Allergies No Known Allergies Allergy (Verified 05/15/24 09:04) Precautions Isolation PUI 05/15/24 09:05 Diagnostics 05/15/24 Range/Units 09:05 COVID-19 Source Pending SARS-CoV-2 (PCR) Pending Influenza Type A (PCR) Pending Influenza Type B (PCR) Pending RSV (PCR) Pending 05/15/24 09:05 Group A Streptococcus Culture - Pending Tonsil - Not Specified [id number] Documentation POC Strep Test-TAHIR(Rapid) Start: 05/15/24 09:08 Freq: .Rapid Strep Test Status: Active Protocol: Activity Type Activity Date Activity User E-sign Co-sign Detail Recorded Client Recorded Date Recorded By Document 05/15/24 09:16 TB [id number] 05/15/24 09:16 TB Intake and Output - 24 Hour Total 05/15/24 08:57 thru 05/15/24 09:01 Weight 58.967 kg Falls Risk Assessment History of Falls No History 05/15/24 09:10 Contributing Factors No Factors 05/15/24 09:10 Ambulatory Aids Independent 05/15/24 09:10 Tubes/Lines None 05/15/24 09:10 Gait Evaluation No gait disturbance 05/15/24 09:10 Cognition No cognitive impairment 05/15/24 09:10 Fall Total Score 0 05/15/24 09:10 Level of Risk Standard/Low Risk 05/15/24 09:10 v v v v v v v v v Sending and/or Receiving Nurses: Please use comment section below to note any information pertinent to the patient hand-off not included above. Information / Comments: Report received from: Shannon Skaggs RN
--- NOTE | 2024-05-15 09:49 | ED.GENADUL_ITS ---
Discharge Plan Disposition Patient Disposition: Home Condition: Stable Discharge Details Clinical Impression: Acute viral syndrome Primary Care Provider: Tacos Del Toro ED Provider: Joel Patel Home Meds and New Rx's Prescriptions: New amoxicillin-pot clavulanate 875-125 mg tablet 1 tab PO BID Qty: 20 0RF Continued cephalexin 500 mg tablet 500 mg PO Q6H 10 Days Qty: 40 0RF Discharge Instructions Instructions: Cough, runny nose, and the common cold Additional Instructions: Flu, RSV, COVID, and rapid strep are all negative. This is likely a viral syndrome. Recommend conservative therapy such as rest, salt water gargles, Tylenol, Motrin, antihistamines, decongestants, Chloraseptic spray for symptomatic control. Please watch for new or worsening symptoms and return immediately to the ER. As we discussed if your symptoms were to dramatically worsen over the weekend or there is no improvement of your symptoms by early to mid next week, I have provided you a prescription of Augmentin to fill and take as prescribed. I would recommend taking a probiotic and having a live yogurt culture with the antibiotics as you are already finishing a course of cephalexin. Please watch for new or worsening symptoms and return to the ER for any concerns. Lastly, I would reach out to your primary care office to make them aware of your ER visit, ongoing symptoms, and potential need for outpatient reevaluation. HPI General Mode of arrival: ambulatory . Date/Time Provider Initiated Documentation: 05/15/24 08:57 . Limitations to Documentation: no limitations . Information obtained by: patient . History of Present Illness 23 year old F presents to the emergency department with the chief complaint of URI, described as moderate, with intensity rated at 5. Quality is described as aching, and is localized to the head (Left ear) and mouth (Throat). Patient reports no radiation. Patient started experiencing this week(s) (1) and it has been constant. No relieving factors improve symptom(s), No exacerbating factors reported . Patient notes cough, fever/chills (Fever yesterday) and malaise. Patient did receive the following treatments prior to arrival, NSAID Related Data Home Medications ?Medication ?Instructions ?Recorded ?Confirmed cephalexin 500 mg tablet 500 mg PO Q6H 10 days #40 tabs 05/08/24 05/15/24 amoxicillin 875 mg-potassium 1 tab PO BID #20 tabs 05/15/24 clavulanate 125 mg tablet Previous Rx's ?Medication ?Instructions ?Recorded cephalexin 500 mg tablet 500 mg PO Q6H 10 days #40 tabs 05/08/24 amoxicillin 875 mg-potassium 1 tab PO BID #20 tabs 05/15/24 clavulanate 125 mg tablet Allergies Allergy/AdvReac Type Severity Reaction Status Date / Time No Known Allergies Allergy Verified 05/15/24 09:04 General Stated Complaint: RespSymp AV: 3 Review of Systems Constitutional Constitutional: Denies chills, Reports fever(s) and Denies headache(s) Eyes Eyes: Denies eye discharge ENT Ears, Nose, Mouth, and Throat: Denies ear discharge, Reports otalgia, Denies headache(s), Reports nasal discharge, Reports sore throat and Denies throat swelling Cardiovascular Cardiovascular: Denies chest pain and Denies dyspnea Respiratory Respiratory: Reports cough and Denies dyspnea Gastrointestinal Gastrointestinal: Denies abdominal pain, Denies nausea and Denies vomiting Genitourinary Genitourinary: Denies dysuria Musculoskeletal Musculoskeletal: Reports myalgias Integumentary/Breasts Skin/Breast: Denies rash Neurologic Neurologic: Denies headache(s) Allergic/Immunologic Allergic/Immunologic: Denies throat swelling Exam Const General: cooperative, healthy appearing, comfortable and no acute distress Orientation: alert and awake [facility] Head: normal to inspection, normocephalic and atraumatic Ears: external ears normal, TM's normal bilaterally and EAC's normal General nose exam: external nose normal Face and sinus: normal facial exam Mouth: oral mucosae normal and moist mucous membranes Teeth and gingiva: dentition normal Throat: uvula midline, abnormal tonsil on the left exudates (Mild), no peritonsillar masses, posterior oropharynx abnormal erythema, postnasal drainage, uvula not displaced and no uvular edema Eyes General: appearance normal, both eyes and all related structures Alignment and Position: alignment normal Periorbital: periorbital findings normal Eyelids: eyelids normal Conjunctivae: conjunctivae normal Sclera: sclerae normal Cornea: corneas normal Pupils: PERRL EOM: EOM intact bilaterally Neck Neck: normal visual inspection, full ROM, no meningeal signs, trachea midline, supple and lymphadenopathy anterior cervical Resp Effort & Inspection: normal respiratory effort and able to speak in complete sentences Auscultation: clear to auscultation bilaterally Cardio Rate: regular rate Rhythm: regular rhythm Back/Spine/Pelvis Back: no CVA tenderness and No back tenderness Skin General skin exam: no rashes or lesions noted Neuro General: patient alert, patient awake, moves all extremities and no focal motor deficits Motor: muscle tone normal throughout Extrem General: full ROM and capillary refill normal Other: Abrasion plantar aspect of left foot, well-healed. No evidence of infection Psych Appearance: grossly normal Mental Status: mental status grossly normal Course Vital Signs Vital signs: Vital Signs Temperature 36.8 C 05/15/24 09:01 Pulse 105 H 05/15/24 09:01 Respiratory Rate 18 05/15/24 09:01 Blood Pressure 127/71 05/15/24 09:01 Pulse Oximetry 100 05/15/24 09:01 Temperature 36.8 C 05/15/24 09:04 Temperature Source Oral 05/15/24 09:04 Pulse 105 H 05/15/24 09:04 Respiratory Rate 18 05/15/24 09:04 Respiratory Effort Normal, Non-Labored 05/15/24 09:10 Respiratory Depth Normal 05/15/24 09:10 Blood Pressure 127/71 05/15/24 09:04 Blood Pressure Position Sitting 05/15/24 09:04 Pulse Oximetry 100 05/15/24 09:04 Oxygen Delivery Method Room Air 05/15/24 09:04 Oxygen Flow Rate 0 05/15/24 09:04 Lab/Test Results Lab/Test Results: 05/15/24 09:05 Tonsil - Not Specified Group A Streptococcus Culture - Pending POC Strep Test-TAHIR(Rapid) Start: 05/15/24 09:08 Freq: .Rapid Strep Test Status: Active Protocol: Document 05/15/24 09:16 TB (Rec: 05/15/24 09:16 TB [id number]) Strep test-TAHIR(Rapid)-POC POC-Strep test-TAHIR (Rapid) Negative POC-Strep test-TAHIR (Rapid) Negative Medical Decision Making 23-year-old otherwise healthy female, non-smoker, does have a small child but not breast-feeding, presents for a 1 week history of URI-like symptoms. Reports that her family has similar but they are now improving and she is not. Has been taking Keflex for a abrasion to her left foot, no evidence of infection. Reports fever of 103 yesterday. Taking [id number] medications with modest relief. Clinically she appears well, nontoxic. Heart rate in triage was 105, heart rate during my exam was in the high 80s. Respirations of 18, she is afebrile, O2 sat 100% on room air. Airway is patent, speaking in full sentences. She does have mild erythema about her pharynx, and mild exudates about her left tonsil. No evidence of peritonsillar or tonsillar abscess. No tonsillar or uvular swelling. Plan to obtain rapid strep, flu, COVID, RSV, and will reassess. Rapid strep negative. Upon reevaluation patient resting comfortably. Negative COVID, flu, RSV. Discussed in length with patient. Likely viral syndrome, recommend supportive therapy. Discussed Tylenol, Motrin, decongestants, antihistamines, salt water gargles, Chloraseptic spray, etc. Given the erythematous pharynx and mild exudates about the left tonsil, concern for early tonsillitis. Patient is otherwise young and healthy, already taking antibiotic. Discussed signs and symptoms of tonsillar and peritonsillar abscess and the importance of returning to the ER immediately for new or worsening symptoms. I will provide a prescription for Augmentin that she may fill over the weekend if she feels like her symptoms worsen or she has no improvement early next week. Otherwise she will not fill the antibiotics and continue with this conservative approach. She is agreeable to this plan and has no additional questions or concerns. We did discuss taking a probiotic and live culture yogurt if she decides to take the second antibiotic. She will continue the course of Keflex as previously prescribed Standard discharge and return precautions were provided. Patient understands, is agreeable to this plan, and has no additional questions or concerns upon discharge. This documentation was generated using avVentaation system, please disregard any oddities of phrase or misspellings. Medical Records Medical records reviewed: Yes I reviewed the patient's medical records. Quality:[facility] Health Related Social Needs: No Data to Display PFSH All Active Problems (Updated 05/15/24 @ 10:07 by NELLIE Garcia) Acute viral syndrome (Acute) Abrasion foot/toe (Acute) care following vaginal delivery (Acute) Tachycardia (Acute) Inverted nipple (Acute) Previous delivery, antepartum (Acute) Maternal varicella, non-immune (Acute) Rubella non-immune status, antepartum (Acute) (Acute) Medical History Low lying placenta nos or without hemorrhage, second trimester resolved @ 27 wks Recurrent acute otitis media Family history of coronary arteriosclerosis Post-concussion headache Learning difficulty (04/21/13) IEP in place Ureteral stone (02/02/16) Kidney stones hospitalized 2014 and 2018 Surgical History Myringotomy w/ PE (pressure equalizing) tubes Family History Other Personal history of malignant neoplasm MGM Father Essential hypertension Heart disease Mother Asthma Diabetes Essential hypertension Social History Smoking/Tobacco Use Status: Former Tobacco Use Tobacco: How many years used: 1 Smoking risk assessment performed?: Yes Alcohol Intake: current Alcohol Intake frequency: holidays/special occasions only Drug use: Occasionally Substance use type: former substance user Date of last use: marijuana Adopted: No Caregiver/Support person: No Foster care: No Household members: children Housing: apartment Number of Children: 1 Communication Needs: None Education Level: high school Do you need help understanding health information?: Never current occupation: [employer] Pets and animals: No Sexually active: No Do you think of yourself as: straight/heterosexual Current gender identity: female What is your relationship status?: never How often do you talk on the phone with friends or family?: three or more times per week How often do you get together with friends or relatives?: three or more times per week Do you belong to any clubs or organized social groups?: no Panel score (0-1 are the most socially isolated patients): 1 What type of physical activity do you participate in: walking Duration: 60-90 minutes/day Frequency: 5-6 times per week Maryellen/Amish: None Special maryellen needs: No Seatbelt use: always Helmet use: No Drive intox or ride w/intox 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 Date GA/Weeks # Preg Succ Route Wgt Sex Labor Lgth Anesth esia Location Prov Complic 03/23/19 36 No Yes vaginal 2834.952 g Female 8 Christine Jean CNM 04/13/23 34 No Yes vaginal 2250.952 g Male 10hrs 12min JAREK Castillo Delivery Date: 03/23/19 Last Updated by: Janis Jean CNM No complications. Spontaneous labor. Mother with perineal and periurethral abrasions not needing repair. Delivery Date: 04/13/23 Last Updated by: YENNI Osei; Shoulder cord and true knot; @1min=7; @5min=8 PAWSS Have you Been Recently Intoxicated or Drunk Within the Last 30 days?: No Have you Ever Experienced Previous Episodes of Alcohol Withdrawal?: No Have you ever Experienced Withdrawal Seizures?: No Have you ever Experienced Delirium Tremens(DT)s?: No Have you ever undergone Alcohol Rehabilitation Treatment (i.e, inpt ot out patient treatment programs)?: No Have you ever Experienced Blackouts?: No Have you ever Combined Alcohol with other Downers within the last 90 days?: No Have you ever Combined Alcohol with any other Substance of Abuse during the last 90 days?: No Positive Blood Alcohol level on Presentation? [PCS.BAL]: No Evidence of Increased Autonomic Activity (i.e. HR>120, tremor, sweating, agitation, nausea)?: No Result: 0
[2024-05-15 09:51] LABS: COVID-19 PCR Negative (Negative); Influenza A PCR Negative (Negative); Influenza B PCR Negative (Negative); RSV PCR Negative (Negative); Source Nasopharynx
--- NOTE | 2024-05-18 07:18 | NUR.NOTE ---
Access chart to reconcile EKG orders with EKG's in [facility]. Order cancelled, no EKG in [facility] and none documented. Nursing Note:
== END 2024-05-15 10:18 | disposition home or self-care (01) ==
PROVIDERS: Emergency Provider Physician Assistant; PCP Family Medicine
DX: B34.9 Viral infection, unspecified (principal); Z87.891 Personal history of nicotine dependence
CPT/HCPCS: 87637; 87880; 99283; 87081

== ENCOUNTER 2024-11-19 01:50 | Day surgery (SDC) | payer MEDICAID, SELFPAY ==
[2024-11-19] VITALS (76 sets, daily range): BP systolic 84–145; BP diastolic 45–87; PULSE 70–129; RESP 8–27; TEMP 36.1–37.6; O2SAT 94–100; BMI 23.0
--- NOTE | 2024-11-19 01:53 | ED.GENADUL_ITS ---
Discharge Plan Disposition Patient Disposition: Admit to [facility] Condition: Stable Discharge Details Clinical Impression: Calculus of proximal left ureter Primary Care Provider: Tacos Del Toro ED Provider: Dago Santiago General Mode of arrival: ambulatory . Date/Time Provider Initiated Documentation: 11/19/24 01:52 . Limitations to Documentation: no limitations . Information obtained by: patient, RN notes reviewed and old records reviewed . HPI Narrative: Patient presents to ED with sudden onset of left back and flank pain that woke her from sleep around 1230. Patient had noticed some episodes of hematuria since last week but it had no pain. She does have a history of kidney stones which she reports she has passed previously. Pain that she is having now reminds her of previous kidney stones. She is nauseated but has no vomiting. Denies any fever. Did take acetaminophen and tried to tough it out at home but has been unable to tolerate the pain. Related Data Allergies Allergy/AdvReac Type Severity Reaction Status Date / Time No Known Allergies Allergy Verified 11/19/24 01:52 General AV: 3 Exam Narrative Exam Narrative: Const: WDWN female appears uncomfortable holding onto to left back/flank. VS per triage. HEENT: NC/AT. Normal facial exam. Neck: Supple. Trachea midline. Lungs: Normal respiratory effort. GI: Soft/ND/NT. Back: L CVAT. Neuro: A+O x 3. Normal speech, mentation, gait. Cranial nerves II - XII gross ly intact. No gross motor or sensory deficit. Ext: No C/C/E. Medical Decision Making Patient presenting to ED with left flank and back pain which woke her up from sleep. Had been having intermittent hematuria since last week. Does have prior history of kidney stones. Has CVAT on the left and appears uncomfortable. IV established and fluids started. Morphine, ketorolac, ondansetron given for symptoms. Labs and urinalysis ordered CT of the abdomen pelvis without contrast obtained. Patient still uncomfortable despite pain medications but reports being able to tolerate the pain at this point. test is negative. CBC with a normal white count. Kidney function is normal. Urinalysis shows no evidence of infection. CT scan shows a proximal ureteral stone with hydronephrosis suggesting obstruction. Will keep the patient in ED and discussed with urology in the morning. As needed morphine ordered. Discussed with Dr. Huerta this morning. Patient still having pain and uncomfortable. Requesting another dose of morphine. Discussed option of stenting today versus waiting 24 hours to see if will pass. Given here degree of discomfort she would like procedure today. Dr. Huerta aware and agrees with plan. She will go to surgery later this morning. Remains NPO at this time. Medical Records Medical records reviewed: Yes I reviewed the patient's medical records. Imaging Data Radiologic Study: Attestation: I personally reviewed and interpreted this imaging study as follows: Imaging: CT Scan (CT abd/pelvis w/o contrast) My impression: Left proximal ureteral stone with hydronephrosis Radiologist's impression: IMPRESSION: Left hydronephrosis, with obstructive 4 x 3 mm calculus within the left proximal ureter (series 2, image 175). Thank you for allowing us to participate in the care of your patient. Dictated and Authenticated by: Tai Amaral MD Lab Data Lab results reviewed: Yes I reviewed the patient's lab results. Lab results narrative: see MDM PFS All Active Problems (Updated 11/19/24 @ 05:20 by Dago Santiago MD) Calculus of proximal left ureter (Acute) Inverted nipple (Acute) Previous delivery, antepartum (Acute) Maternal varicella, non-immune (Acute) Rubella non-immune status, antepartum (Acute) Medical History Family history of coronary arteriosclerosis Post-concussion headache Learning difficulty (04/21/13) IEP in place Kidney stones hospitalized 2014 and 2018 Surgical History Myringotomy w/ PE (pressure equalizing) tubes Family History Other Personal history of malignant neoplasm MGM Father Essential hypertension Heart disease Mother Asthma Diabetes Essential hypertension Social History Smoking/Tobacco Use Status: Current-Occasional Tobacco Type: e-cigarettes Smoking risk assessment performed?: Yes Alcohol Intake: former Drug use: Occasionally Substance use type: former substance user Date of last use: marijuana Adopted: No Caregiver/Support person: No Foster care: No Household members: children Housing: apartment Number of Children: 1 Communication Needs: None Education Level: high school Do you need help understanding health information?: Never 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 Pets and animals: No Sexually active: No Do you think of yourself as: straight/heterosexual Current gender identity: female What is your relationship status?: never How often do you talk on the phone with friends or family?: three or more times per week How often do you get together with friends or relatives?: three or more times per week Do you belong to any clubs or organized social groups?: no Panel score (0-1 are the most socially isolated patients): 1 What type of physical activity do you participate in: walking Duration: 60-90 minutes/day Frequency: 5-6 times per week Maryellen/Catholic: None Special maryellen needs: No Seatbelt use: always Helmet use: No Drive intox or ride w/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 Date GA/Weeks # Preg Succ Route Wgt Sex Labor Lgth Anesth esia Location [facility] 03/23/19 36 No Yes vaginal 2834.952 g Female 8 Christine Jean CNM 04/13/23 34 No Yes vaginal 2250.952 g Male 10hrs 12min JAREK Castillo Delivery Date: 03/23/19 Last Updated by: Janis Jean CNM No complications. Spontaneous labor. Mother with perineal and periurethral abrasions not needing repair. Delivery Date: 04/13/23 Last Updated by: YENNI Osei; Shoulder cord and true knot; @1min=7; @5min=8
[2024-11-19] MEDS: Normal Saline 1,000 ML 1000 ML IV (02:14)
[2024-11-19] MEDS: MORPHine 4 MG/ML SYR IVP ×2 (02:14→07:20)
[2024-11-19] MEDS: Ondansetron 4 MG/2 ML VIAL IVP (02:14)
[2024-11-19] MEDS: Ketorolac 15 MG/ML VIAL IVP (02:14)
[2024-11-19] MEDS: Normal Saline 1,000 ML 100 ML IV (03:08)
[2024-11-19] MEDS: Tamsulosin 0.4 MG CAPCR PO (03:13)
[2024-11-19 03:16] LABS: Anion Gap 10.6 mmol/L (3-11); BUN 12 mg/dL (7-18); CO2 26.4 mmol/L (21.0-32.0); Calcium 8.9 mg/dL (8.5-10.1); Chloride 105 mmol/L (98-107); Estimated GFR 123.78 (mL/min/1.73m2); Glucose 106 mg/dL (74-106); Potassium 3.3 mmol/L (3.5-5.1); Sodium 142 mmol/L (136-145)
--- NOTE | 2024-11-19 04:18 | DI.VRAD_ITS ---
PROCEDURE INFORMATION: Exam: CT Abdomen And Pelvis Without Contrast Exam date and time: 11/19/2024 2:35 AM Age: 23 years old Clinical indication: Abdominal pain; Left flank pain TECHNIQUE: Imaging protocol: Computed tomography of the abdomen and pelvis without contrast. Radiation optimization: All CT scans at this facility use at least one of these dose optimization techniques: automated exposure control; mA and/or kV adjustment per patient size (includes targeted exams where dose is matched to clinical indication); or iterative reconstruction. COMPARISON: CT RENAL COLIC WO 11/16/2020 8:18 AM FINDINGS: Liver: Normal. Gallbladder and biliary ducts: Normal Pancreas: Normal. Spleen: Normal. Adrenal glands: Normal. No mass. Kidneys and ureters: Left hydronephrosis, with obstructive 4 x 3 mm calculus within the left proximal ureter (series 2, image 175). Stomach and bowel: Normal. Appendix: Appendix normal. Intraperitoneal space: Unremarkable. No free air. No significant fluid collection. Vasculature: Unremarkable. No abdominal aortic aneurysm. Lymph nodes: Several small lymph nodes within the right upper quadrant, likely reactive, but nonspecific. Urinary bladder: Unremarkable as visualized. Reproductive: Unremarkable as visualized. Bones/joints: No acute abnormality. Soft tissues: Normal. IMPRESSION: Left hydronephrosis, with obstructive 4 x 3 mm calculus within the left proximal ureter (series 2, image 175). Dictated and Authenticated by: Tai Amaral MD. Orderin Jack Loza MD
[2024-11-19 04:43] LABS: Abs Immature Grans 0.01 10^3/uL (0.0-0.06); HCT 39.5 % (36.0-46.0); HGB 13.3 g/dL (11.2-15.7); Immature Grans % 0.2 %; MCH 30.1 pg (27.0-33.0); MCHC 33.7 % (32.0-36.0); MCV 89 fL (80-95); MPV 9.2 fL (8.0-11.0); Platelet Count 225 10^3/uL (130-400); RBC 4.42 10^6/uL (3.93-5.22); RDW 12.3 % (11.7-14.6); RDW-SD 40.7 fL; WBC 6.18 10^3/uL (4.4-10.8)
[2024-11-19 04:47] LABS: HCG Qual (Serum) Negative
[2024-11-19 04:49] LABS: Glucose Negative (Negative)
[2024-11-19 04:50] LABS: C & S Indicated? No; RBC 20-50 HPF (0-2); WBC 0-2 HPF (0-5)
--- NOTE | 2024-11-19 06:00 | DI.CT_ITS ---
Exam(s) CT RENAL COLIC WO EXAM: CT RENAL COLIC WO CLINICAL HISTORY: left flank pain. TECHNIQUE: Imaging Protocol: Axial computed tomography images with coronal and sagittal reformatted images were created and reviewed. COMPARISON: CT ABD PELVIS WITH CONTRAST from 01/20/[address] RENAL COLIC WO from 11/16/2020 FINDINGS: ABDOMEN: Lung Bases: Normal where visualized. Liver: Normal density. No measurable mass. Gallbladder and biliary tract: No radiodense calculus or biliary ductal dilation. Pancreas: Normal density, no abnormal calcifications or inflammatory process. Spleen: Normal. Kidneys: Normal size, contour and axis.There is a 5 mm stone in the proximal left ureter causing moderate hydronephrosis. No masses seen. Adrenal glands: No mass is seen. Lymph nodes: Within normal limits. Abdominal Aorta: Abdominal portion non-dilated. PELVIS: Bladder:Symmetric distention, no gross wall thickening. Bowel: No obstruction or bowel wall thickening. There is no evidence of appendicitis. Peritoneal cavity: No ascites, collection or mesenteric inflammatory response. No free air. Reproductive organs: Unremarkable as visualized. Bones: Within normal limits. Soft Tissues: Within normal limits. IMPRESSION: 1. There is a 5 mm stone in the proximal left ureter causing moderate hydronephrosis. 2. The preliminary [facility] report was reviewed. RADIATION DOSE DELIVERED: 402.06mGy.cm Total DLP DATA REPOSITORY: All CT scans at this facility are submitted to the National Radiology Data Registry (NRDR) Dose Index Registry (DIR) with the [employer] (ACR). RADIATION OPTIMIZATION: All CT scans at this facility use at least one of these dose optimization techniques: automated exposure control; mA and/or kV adjustment per patient size (includes targeted exams where dose is matched to clinical indication); or iterative reconstruction.
--- NOTE | 2024-11-19 08:00 | ANES.PREOP_ITS ---
General Info Date of Service Date Performed: 11/19/24 Height: 5 ft 3 in Weight: 58.967 kg Body Mass Index (BMI): 23.0 Surgical Procedure: Operation Date: 11/19/24 09:40 Proposed Procedure Side Surgeon p Cystoscopy/Retrograde/Stent Placement Left Frederick Huerta MD Meds Allergies and Home Medications Allergies Allergy/AdvReac Type Severity Reaction Status Date / Time No Known Allergies Allergy Verified 11/19/24 01:52 Current Visit Medications: Current Medications Generic Name Dose Route Start Last Admin Trade Name Freq PRN Reason Stop Dose Admin Sodium Chloride 1,000 mls @ 100 mls/hr 11/19/24 03:00 11/19/24 03:08 Saline 1000ml Bag IV 100 mls/hr INFUSION ARLENE Administration IV Miscellaneous Supplies 1 each 11/19/24 02:00 Iv Access IV DIRECTED ARLENE Sodium Chloride 0 ml 11/19/24 01:56 Normal Saline Flush 10 Ml Syr IVP PRN PRN Sodium Chloride 0 ml 11/19/24 08:30 Normal Saline Flush 10 Ml Syr IVP BID ARLENE Sodium Chloride 0 ml 11/19/24 01:56 Normal Saline 10 Ml Vial IJ DIRECTED PRN PFSH Active Problems Active Problems: Problem Status Onset Code Calculus of proximal left ureter Acute N20.1 Inverted nipple Acute N64.59 Previous delivery, antepartum Acute O09.219 Maternal varicella, non-immune Acute O09.899, Z28.39 Rubella non-immune status, antepartum Acute O09.899, Z28.39 Medical History Medical History Family history of coronary arteriosclerosis Post-concussion headache Learning difficulty (04/21/13) IEP in place Kidney stones hospitalized 2014 and 2019 Surgical History Surgical History Myringotomy w/ PE (pressure equalizing) tubes Tobacco Smoking/Tobacco Use Status: Current-Occasional Tobacco Type: e-cigarettes Alcohol Alcohol Intake: former Substance Use Substance use: Occasionally Substance use type: former substance user Date of last use: marijuana Prental History History 2 2 Para 2 Hx # Term Pregnancies 0 Multiple births 0 Hx # Pregnancies 1 Ectopic pregnancies 0 AB induced 0 Hx Number of Living Children 2 AB spontaneous 0 Past Pregnancies Del. Date GA/Weeks # Preg Succ Route Wgt Sex Labor Lgth Anesth esia Location Prov Complic 03/23/19 36 No Yes vaginal 2834.952 g Female 8 Christine Jean CNM 04/13/23 34 No Yes vaginal 2250.952 g Male 10hrs 12min JAREK Castillo Delivery Date: 03/23/19 Last Updated by: Janis Jean CNM No complications. Spontaneous labor. Mother with perineal and periurethral abrasions not needing repair. Delivery Date: 04/13/23 Last Updated by: YENNI Osei; Shoulder cord and true knot; @1min=7; @5min=8 Vital Signs and Lab Results Vital Signs Most Recent Vital Signs in EMR: Most Recent Vital Signs Temp Pulse Resp BP Pulse Ox 36.7 C 91 H 14 100/58 L 100 11/19/24 07:37 11/19/24 07:37 11/19/24 07:37 11/19/24 07:37 11/19/24 07:37 Lab Results 11/19/24 02:10 11/19/24 02:10 Complete Blood Count: 2 WBC, (4.4-10.8) 6.18 10^3/uL Today, 02:10 RBC, (3.93-5.22) 4.42 10^6/uL Today, 02:10 Hgb, (11.2-15.7) 13.3 g/dL Today, 02:10 Hct, (36.0-46.0) 39.5 % Today, 02:10 Plt Count, (130-400) 225 10^3/uL Today, 02:10 Complete Metabolic Panel: 2 Sodium, (136-145) 142 mmol/L Today, 02:10 Potassium, (3.5-5.1) 3.3 mmol/L L Today, 02:10 Chloride, (98-107) 105 mmol/L Today, 02:10 Carbon Dioxide, (21.0-32.0) 26.4 mmol/L Today, 02:10 BUN, (7-18) 12 mg/dL Today, 02:10 Creatinine, (0.55-1.02) 0.7 mg/dL Today, 02:10 Est GFR (CKD-EPI 2020), (mL/min/1.73m2) 123.78 Today, 02:10 Calcium, (8.5-10.1) 8.9 mg/dL Today, 02:10 Glucose, (74-106) 106 mg/dL Today, 02:10 Panel: 2 Serum HCG, Qual Negative Today, 02:10 Anesthesia Assessment and Plan Anesthesia History Personal History: No History of Anesthesia Complications Family History: No Family History of Anesthesia Complications Exercise Tolerance Exercise Tolerance: Metabolic Equivalents>4 Pertinent Negatives Pertinent Negatives: No Symptoms of GERD, No Major Cardiovascular Symptoms or Complaints, No Major Pulmonary Symptoms or Complaints and No History of CVA/TIA Cardiac & Pulmonary Exam Cardiac Exam: Normal S1/S2 Heart Sounds Pulmonary Exam: Clear Bilateral Breath Sounds Cardiac and Pulmonary Comment:: e-cigarettes Implantable Cardiac Device Does patient have a Pacemaker or an ICD?: No Airway Exam Known Difficult Airway: No Mallampati Class: 2 Mouth Opening: Normal (> 3cm) Thyromental Distance: Greater than 3 cm Neck Range of Motion: Full ROM Neck Circumference: Normal Teeth Condition: Normal Dentition Tooth Numberin 1. Missing tooth. ASA Classification ASA Score: ASA 2 Emergency Case?: No NPO Status NPO Status: NPO Clears >2 hours, Solids >8 hours Status Status: Negative HCG Anesthesia Plan Resuscitation Status: Full Code Anesthesia Technique: General Anesthesia Airway Planned: Natural Airway Monitors Used: Standard Monitors Preoperative Comments:: History of kidney stones x 2, passed without intervention. NPO since 2029 on 11/18/24
--- NOTE | 2024-11-19 08:32 | HPE_ITS ---
Date of service: 11/19/24 Time of Service: 08:43 Assessment and Plan Assessment and plan (1) Calculus of proximal left ureter: Status: Acute Assessment and plan: She is not a good candidate for outpatient therapy given the difficulty controlling her pain. We will make arrangements to place a ureteral stent to relieve her hydronephrosis. Once the stent has been able to dilate her ureter with a stent, she might be able to pass her stone with conservative treatment. If not, we can make arrangements for an outpatient ureteroscopy and stone manipulation History of Present Illness History of Present Illness Chief Complaint: Left ureteral stone Narrative: This is a 23-year-old woman who has a history of kidney stones. She has been able to pass her stone with no surgical intervention previously. She presented to the emergency department last evening with an acute onset of left-sided flank pain. She had nausea and vomiting. She did not have any fever or chills. As part of her evaluation, she was identified as having a left proximal ureteral stone with hydronephrosis. She had no evidence of a urinary tract infection or sepsis. Her pain was poorly controlled in the emergency department which made outpatient therapy difficult. She presents now for urgent stent placement. We have no knowledge of her previous stone compositions. Review of Systems Narrative: No fevers or chills No vision change or dysphasia No diabetes or thyroid dysfunction No shortness of breath, cough or hemoptysis No chest pain or palpitations No hepatitis, ulcers, jaundice, diarrhea or constipation No seizures, strokes or peripheral neuropathy No bleeding disorders or anemia No gout PFSH All Active Problems (Updated 11/19/24 @ 05:20 by Dago Santiago MD) Calculus of proximal left ureter (Acute) Inverted nipple (Acute) Previous delivery, antepartum (Acute) Maternal varicella, non-immune (Acute) Rubella non-immune status, antepartum (Acute) Medical History Family history of coronary arteriosclerosis Post-concussion headache Learning difficulty (04/21/13) IEP in place Kidney stones hospitalized 2014 and 2019 Surgical History Myringotomy w/ PE (pressure equalizing) tubes Family History Other Personal history of malignant neoplasm MGM Father Essential hypertension Heart disease Mother Asthma Diabetes Essential hypertension Social History Smoking/Tobacco Use Status: Current-Occasional Tobacco Type: e-cigarettes Smoking risk assessment performed?: Yes Alcohol Intake: former Drug use: Occasionally Substance use type: former substance user Date of last use: marijuana Adopted: No Caregiver/Support person: No Foster care: No Household members: children Housing: apartment Number of Children: 1 Communication Needs: None Education Level: high school Do you need help understanding health information?: Never current occupation: [employer] Pets and animals: No Sexually active: No Do you think of yourself as: straight/heterosexual Current gender identity: female What is your relationship status?: never How often do you talk on the phone with friends or family?: three or more times per week How often do you get together with friends or relatives?: three or more times per week Do you belong to any clubs or organized social groups?: no Panel score (0-1 are the most socially isolated patients): 1 What type of physical activity do you participate in: walking Duration: 60-90 minutes/day Frequency: 5-6 times per week Maryellen/Congregation: None Special maryellen needs: No Seatbelt use: always Helmet use: No 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 Date GA/Weeks # Preg Succ Route Wgt Sex Labor Lgth Anesth esia Location Prov Complic 03/23/19 36 No Yes vaginal 2834.952 g Female 8 Christine Jean CNM 04/13/23 34 No Yes vaginal 2250.952 g Male 10hrs 12min JAREK Castillo Delivery Date: 03/23/19 Last Updated by: Janis Jean CNM No complications. Spontaneous labor. Mother with perineal and periurethral abrasions not needing repair. Delivery Date: 04/13/23 Last Updated by: YENNI Osei; Shoulder cord and true knot; @1min=7; @5min=8 Meds Allergies and Home Medications Allergies Allergy/AdvReac Type Severity Reaction Status Date / Time No Known Allergies Allergy Verified 11/19/24 01:52 Exam Const General: cooperative Neck Neck: supple Resp Effort & Inspection: normal respiratory effort Auscultation: clear to auscultation bilaterally Cardio Rate: regular rate Rhythm: regular rhythm GI Inspection: normal to inspection Palpation: soft Neuro General: patient alert, patient awake and patient oriented x3 Results Imaging Imaging Studies: I reviewed her CT scan on the PACS system. She has a left proximal ureteral stone with hydronephrosis Labs 11/19/24 02:10 11/19/24 02:10 Labs: Laboratory Results - last 24 hr 11/19/24 11/19/24 02:10 03:00 WBC 6.18 RBC 4.42 Hgb 13.3 Hct 39.5 MCV 89 MCH 30.1 MCHC 33.7 RDW 12.3 Plt Count 225 MPV 9.2 Immature Gran % 0.2 Neutrophils % 55.8 Lymphocytes % 33.7 Monocytes % 9.2 Eosinophils % 0.8 Basophils % 0.3 Nucleated RBC % 0.0 Absolute Neutrophils 3.45 Absolute Lymphocytes 2.08 Absolute Monocytes 0.57 Absolute Eosinophils 0.05 Absolute Basophils 0.02 Sodium 142 Potassium 3.3 L Chloride 105 Carbon Dioxide 26.4 Anion Gap 10.6 BUN 12 Creatinine 0.7 Est GFR (CKD-EPI 2020) 123.78 Glucose 106 Calcium 8.9 Serum HCG, Qual Negative Urine Color Dark Yellow Urine Clarity Turbid Urine pH 7.0 Ur Specific Woodson 1.020 Urine Protein 100 H Urine Ketones Negative Urine Blood Large H Urine Nitrite Negative Urine Bilirubin Negative Urine Urobilinogen 0.2 Ur Leukocyte Esterase Negative Urine RBC 20-50 H Urine WBC 0-2 Ur Epithelial Cells Few Urine Crystals Negative Urine Bacteria Few Urine Casts Negative Urine Mucus Trace Ur Culture Indicated? No Urine Glucose Negative Last Vital Signs Temp 36.7 C 11/19/24 07:37 Pulse 91 H 11/19/24 07:37 Resp 14 11/19/24 07:37 BP 100/58 L 11/19/24 07:37 Pulse Ox 100 11/19/24 07:37 Time Spent Time spent with Patient: <40 minutes Time was spent: other
--- NOTE | 2024-11-19 09:45 | DI.RAD_ITS ---
Exam(s) XR RETROGRADE IN OR EXAM: XR RETROGRADE IN OR CLINICAL HISTORY: Calculus of proximal left ureter TECHNIQUE: 2D and realtime digital imaging was performed. CONTRAST MATERIAL: Refer to procedure report. COMPARISON: No exams were available for comparison FINDINGS: Fluoroscopy was provided for Dr. Huerta during the performance of a evaluation of the renal collecting system. Please refer to the procedure report for complete details. Ka,r=1.67 mGy IMPRESSION: RADIATION DOSE DELIVERED: 0.0 0.0 0
[2024-11-19] MEDS: Lactated Ringers 1,000 ML 30 ML IV (10:18)
[2024-11-19] MEDS: ceFAZolin 2 GM/50 ML BAG 50 GM (10:28)
[2024-11-19] MEDS: Lidocaine 2% Jelly 6 ML SYR (10:37)
[2024-11-19] MEDS: Omnipaque 300 MG/ML 50 ML BTL (10:40)
--- NOTE | 2024-11-19 10:46 | W.PM.DSUDISC ---
Date of service: 11/19/24 Discharge Plan Disposition Patient Disposition: Home Condition: Stable Discharge Details Reason For Visit: Left ureteral stone Attending Provider: Obi De La Cruz Primary Care Provider: Tacos Del Toro Home Meds and New Rx's Prescriptions: New ketorolac 10 mg tablet 10 mg PO Q8H PRN (Reason: pain) Qty: 15 0RF Rx Instructions: maximum total duration of 5 days from all oral, intranasal, or parenteral formulations may take along with tylenol Discharge Instructions Additional Instructions: My office will contact you with arrangements to come back to the hospital as an outpatient for a cystoscopy, stent removal and possible ureteroscopy with stone extraction I sent a prescription into the pharmacy for Toradol. The medicine is not narcotic and can be taken along with Tylenol. If you do need a narcotic to take along with the Toradol, please contact my office at [phone] Activity:: Activity as Tolerated Shower/Bathe:: 24 hours Diet:: As Tolerated Discharge Orders Discharge Orders: Discharge Order (Routine); Ordered 11/19/24 Ordered By: Frederick Huerta DS: Diagnosis Discharge Diagnosis (1) Calculus of proximal left ureter: Status: Acute
--- NOTE | 2024-11-19 10:53 | ROE_ITS ---
Operative Note Operative Note PRE-OP DIAGNOSIS: left ureteral stone POST-OP DIAGNOSIS: same PROCEDURE: cystoscopy with left retrograde pyelogram, insert left ureteral stent SURGEON: Frederick Huerta ANESTHESIA TYPE: Local By Surgeon and General:No Airway Refer to Anesthesia Record ESTIMATED BLOOD LOSS: 5 PATHOLOGY: none sent COMPLICATIONS: None Patient was transported to: PACU Patient's condition: stable Implants: 4.8 [place] by 22 to 30 cm left ureteral stent Indications: This is a 23-year-old woman who has a past history of kidney stones. She presented to the emergency department early this morning with an acute onset of left-sided flank pain. She was identified as having an obstructing left proximal ureteral stone. She had no signs of sepsis or infection, but her pain could not be well-controlled, so outpatient care was not recommended. She presents for cystoscopy and stent placement to relieve her obstruction and make her pain more manageable. Findings: left proximal ureteral stone Procedure Description: The patient was given IV antibiotics and brought to the operating room on 11/19/2024. After successful induction of general anesthesia, she is placed in the dorsal lithotomy position. Her genitalia was prepped and draped. 2% Xylocaine jelly is instilled into the urethra. A 22 [place] Helenian cystoscope was passed through the urethra into the bladder. The bladder was inspected using a 30 degree lens. Both ureteral orifices appeared normal with no blood coming from either side. The left orifice was cannulated with a 5 [place] Helenian access catheter and a retrograde pyelogram was obtained by injecting Omnipaque through the access catheter under fluoroscopic guidance. The retrograde pyelogram confirmed the presence of a stone in the left proximal ureter. The stone had not progressed since her CT scan earlier today. I then passed a guidewire through the lumen of the access catheter and initially had some difficulty advancing the wire past the stone. I then removed the access catheter leaving the wire in place. I passed a 4.8 [place] variable length stent over the wire. I position the stent such that the proximal end was curled in the renal pelvis and the distal end was curled within the bladder. A hydronephrotic drip was obtained once the stent was placed. The positioning of the stent was confirmed both fluoroscopically and cystoscopically. The patient tolerated this procedure well with no complications. She was taken to the recovery room in stable condition. We will make arrangements for a return trip to the operating room for ureteroscopy and holmium laser lithotripsy of her stone once the ureteral edema has subsided. Date of Procedure: 11/19/24
[2024-11-19] MEDS: fentaNYL 100 MCG/2 ML VIAL IVP ×2 (11:31→11:41)
[2024-11-19] MEDS: Phenazopyridine 200 MG TAB PO (11:46)
[2024-11-19] MEDS: HYDROmorphone 2 MG/ML SYR IVP (11:54)
--- NOTE | 2024-11-19 13:04 | W.ANESPOSTOP ---
Postoperative Evaluation Date, Time and Location Date Performed: 11/19/24 Time Performed: 13:00 Patient Location: Day Surgery Unit Vital Signs Most Recent Imported Vital Signs: Most Recent Vital Signs Temp Pulse Resp BP Pulse Ox 36.9 C 97 H 16 116/78 98 11/19/24 12:45 11/19/24 12:45 11/19/24 12:45 11/19/24 12:45 11/19/24 12:45 Pain Score Most Recent Pain Score: Most Recent Pain Score Pain Level 8 11/19/24 12:45 Assessment Mental Status: Awake (Alert & Oriented to Patient Baseline) Airway and Respiratory Function: Patent airway with normal (patient baseline) respiratory exam Cardiovascular Function: Hemodynamically Stable Hydration Status: Adequately Hydrated Nausea & Vomiting: No Nausea or Vomiting Pain: Pain is Moderate or Severe Postoperative Pain Management: Patient having pain, declines treatment, wishes to be discharged (c/o discomfort from the stent, wishes to avoid narcotics) Peripheral Nerve Block: Patient did not receive a nerve block
== END 2024-11-19 13:07 | disposition home or self-care (01) ==
LOC: ER 07:32 → SUR 10:12
PROVIDERS: Urology; Emergency Provider Emergency Medicine; PCP Family Medicine; Visit Provider Surgery
PROC: (CPT 74450; principal; 2024-11-19 09:30)
DX: N20.1 Calculus of ureter (principal)
CPT/HCPCS: 52332; 80048; 96361; 96374; 96375; 96376; 99285; 74176; 74420; 81003; 81015; 84703; 85025; J0690; J1100; J1171; J1885; J2003; J2250; J2270; J2405; J2704; J3010; Q9967

== ENCOUNTER 2024-11-24 08:30 | Outpatient (CLI) | payer MEDICAID, SELFPAY ==
--- NOTE | 2024-11-24 08:30 | DI.US_ITS ---
Exam(s) US RENAL EXAM: US RENAL CLINICAL HISTORY: post op, increased pain, N20.1 R10.9. TECHNIQUE: Mckenna scale imaging and color doppler were used. COMPARISON: CT CT RENAL COLIC WO from 11/19/2024 XA XR RETROGRADE IN OR from 11/19/2024 FINDINGS: Right kidney: 9.9cm Echogenicity: Normal Hydronephrosis: No Cyst or mass: No Nephrolithiasis: No Left kidney: 11.1cm Echogenicity: Normal Hydronephrosis: [id number] nephrosis. A ureteral stent is noted in the renal pelvis. There is a stone in the proximal ureter which is measured 8 millimeters. Cyst or mass: No Nephrolithiasis: No Bladder:Normal. Lower pigtail of ureteral stent in place. Prevoid vol:166 cc Postvoid vol: Patient unable to void. IMPRESSION: Left ureteral stent in place. Persistent [id number] left hydronephrosis. An 8 millimeter stone is noted in the proximal left ureter. DATA REPOSITORY:
== END 2024-11-24 08:50 ==
LOC: DI 08:31
PROVIDERS: PCP Family Medicine; Visit Provider Urology
DX: N20.1 Calculus of ureter (principal); R10.9 Unspecified abdominal pain; N13.2 Hydronephrosis with renal and ureteral calculous obstruction
CPT/HCPCS: 76770

== ENCOUNTER 2024-11-26 08:52 | Day surgery (SDC) | payer MEDICAID, SELFPAY ==
[2024-11-26] VITALS (34 sets, daily range): BP systolic 93–129; BP diastolic 57–85; PULSE 56–90; RESP 6–16; TEMP 36–36.7; O2SAT 97–100; BMI 22.3
[2024-11-26] MEDS: Lactated Ringers 1,000 ML 80 ML IV (09:33)
--- NOTE | 2024-11-26 09:42 | DI.RAD_ITS ---
Exam(s) XR RETROGRADE IN OR EXAM: XR RETROGRADE IN OR CLINICAL HISTORY: LEFT URETERAL STONE. TECHNIQUE: Fluoroscopy was provided for the referring physician for guidance with performing retrograde procedure. COMPARISON: CT CT RENAL COLIC WO from 11/19/2024 FINDINGS: Please see procedure note for details. Fluoro time: 30.2 seconds RADIATION DOSE DELIVERED: alfonso Mims=3.2 mGy
--- NOTE | 2024-11-26 10:13 | HPE_ITS ---
Date of service: 11/26/24 Time of Service: 10:14 Assessment and Plan Assessment and plan (1) Calculus of proximal left ureter: Status: Acute Assessment and plan: Her stent has a lot of wound the ureter to dilate a bit we will be able to do ureteroscopy and holmium laser lithotripsy of her proximal left ureteral stones History of Present Illness History of Present Illness Chief Complaint: left ureteral stone Narrative: This is a 23-year-old woman who has a past history of kidney stones. She was able to pass her stones spontaneously in the past. She presented to our emergency department last week with left-sided renal colic. She was found to have a large proximal left ureteral stone. The pain was not well-controlled with oral medications, so we placed a left ureteral stent. He has had quite a bit of stent discomfort but on ultrasound, the stent appears to be in good location and is functioning quite well. She has been requiring a combination of Toradol and opiates for pain control. She presents now for stent removal, ureteroscopy and holmium laser lithotripsy of her stone. Review of Systems Narrative: No fevers or chills No vision change or dysphasia No diabetes or thyroid dysfunction No shortness of breath, cough or hemoptysis No chest pain or palpitations No nausea, vomiting, hepatitis, ulcers, jaundice No seizures, strokes or peripheral neuropathy No bleeding disorders or anemia No gout or arthralgia PFSH All Active Problems Calculus of proximal left ureter (Acute) Inverted nipple (Acute) Previous delivery, antepartum (Acute) Maternal varicella, non-immune (Acute) Rubella non-immune status, antepartum (Acute) Medical History Family history of coronary arteriosclerosis Post-concussion headache Learning difficulty (04/21/13) IEP in place Kidney stones hospitalized 2015 and 2019 Surgical History Myringotomy w/ PE (pressure equalizing) tubes Family History Other Personal history of malignant neoplasm MGM Father Essential hypertension Heart disease Mother Asthma Diabetes Essential hypertension Social History Smoking/Tobacco Use Status: Current-Occasional Tobacco Type: e-cigarettes Smoking risk assessment performed?: Yes Alcohol Intake: former Drug use: Current Sobriety Substance use type: former substance user Date of last use: marijuana Adopted: No Caregiver/Support person: No Foster care: No Household members: children Housing: apartment Number of Children: 1 Communication Needs: None Education Level: high school Do you need help understanding health information?: Never current occupation: [employer] Pets and animals: No Sexually active: No Do you think of yourself as: straight/heterosexual Current gender identity: female What is your relationship status?: never How often do you talk on the phone with friends or family?: three or more times per week How often do you get together with friends or relatives?: three or more times per week Do you belong to any clubs or organized social groups?: no Panel score (0-1 are the most socially isolated patients): 1 What type of physical activity do you participate in: walking Duration: 60-90 minutes/day Frequency: 5-6 times per week Maryellen/Tenriism: None Special maryellen needs: No Seatbelt use: always Helmet use: No Drive intox or ride w/intox pack train driver: No Do you feel safe at home: Yes Do you feel safe in your relationship?: Yes Female Reproductive History Menstrual Age of Menarche: 14 Duration of menses: <3 days control method: pills (failed bcm.) History History 2 Para 2 Hx # Term Pregnancies 0 Multiple births 0 Hx # Pregnancies 1 Ectopic pregnancies 0 AB induced 0 Hx Number of Living Children 2 AB spontaneous 0 Past Pregnancies Del. Date GA/Weeks # Preg Succ Route Wgt Sex Labor Lgth Anesth esia L ocation Prov Complic 03/23/19 36 No Yes vaginal 2834.952 g Female 8 Christine Jean CNM 04/13/23 34 No Yes vaginal 2250.952 g Male 10hrs 12min JAREK Castillo Delivery Date: 03/23/19 Last Updated by: Janis Jean CNM No complications. Spontaneous labor. Mother with perineal and periurethral abrasions not needing repair. Delivery Date: 04/13/23 Last Updated by: YENNI Osei; Shoulder cord and true knot; @1min=7; @5min=8 Meds Allergies and Home Medications Allergies Allergy/AdvReac Type Severity Reaction Status Date / Time No Known Allergies Allergy Verified 11/26/24 09:07 Home Medications ?Medication ?Instructions ?Recorded ?Confirmed ?Type ketorolac 10 mg tablet 10 mg PO Q8H PRN pain #15 ta bs 11/19/24 11/26/24 Rx oxycodone 5 mg tablet 5 - 10 mg (1 - 2 x 5 mg) PO Q6H 11/24/24 11/26/24 Rx Held on 11/26/24. PRN pain #20 tabs Instructions: Pt Stopped/Never Started tramadol 50 mg tablet mg 11/26/24 History Exam Const General: cooperative Neck Neck: supple Resp Effort & Inspection: normal respiratory effort Auscultation: clear to auscultation bilaterally Cardio Rate: regular rate Rhythm: regular rhythm GI Palpation: soft and no masses Neuro General: patient alert, patient awake and patient oriented x3 Results Last Vital Signs Temp 36.5 C 11/26/24 09:02 Pulse 88 11/26/24 09:02 Resp 16 11/26/24 09:02 BP 129/69 11/26/24 09:02 Pulse Ox 98 11/26/24 09:02 Time Spent Time spent with Patient: <40 minutes Time was spent: other
--- NOTE | 2024-11-26 10:34 | ANES.PREOP_ITS ---
General Info Date of Service Date Performed: 11/26/24 Height: 5 ft 3 in Weight: 57.2 kg Body Mass Index (BMI): 22.3 Surgical Procedure: Operation Date: 11/26/24 10:10 Proposed Procedure Side Surgeon p Cystoscopy/Laser/Retrograde/Ureteroscopy/Stent Removal Left Frederick Huerta MD Meds Allergies and Home Medications Allergies Allergy/AdvReac Type Severity Reaction Status Date / Time No Known Allergies Allergy Verified 11/26/24 09:07 Home Medication ?Medication ?Instructions ?Recorded ketorolac 10 mg tablet 10 mg PO Q8H PRN pain #15 ta bs 11/19/24 oxycodone 5 mg tablet 5 - 10 mg (1 - 2 x 5 mg) PO Q6H 11/24/24 Held on 11/26/24. PRN pain #20 tabs Instructions: Pt Stopped/Never Started tramadol 50 mg tablet mg 11/26/24 Current Visit Medications: Current Medications Generic Name Dose Route Start Last Admin Trade Name Freq PRN Reason Stop Dose Admin Ringer's Solution 1,000 mls @ 80 mls/hr 11/26/24 06:00 11/26/24 09:33 IV 11/26/24 23:59 80 mls/hr INFUSION ARLENE Administration Cefazolin Sodium/Dextrose 2 gm in 50 mls @ 100 mls/hr 11/26/24 06:00 Ancef Duplex IVPB 11/26/24 23:59 PREOP ARLENE IV Miscellaneous Supplies 1 each 11/26/24 06:00 Iv Access IV 11/26/24 23:59 DIRECTED ARLENE Sodium Chloride 0 ml 11/26/24 06:00 Normal Saline Flush 10 Ml Syr IV 11/26/24 23:59 PRN PRN Sodium Chloride 0 ml 11/26/24 06:00 Normal Saline 10 Ml Vial IJ 11/26/24 23:59 DIRECTED PRN Sterile Water 0 ml 11/26/24 06:00 Water,Injection,Sterile 10 Ml Vial IJ 11/26/24 23:59 DIRECTED PRN PFSH Active Problems Active Problems: Problem Status Onset Code Calculus of proximal left ureter Acute N20.1 Inverted nipple Acute N64.59 Previous delivery, antepartum Acute O09.219 Maternal varicella, non-immune Acute O09.899, Z28.39 Rubella non-immune status, antepartum Acute O09.899, Z28.39 Medical History Medical History Family history of coronary arteriosclerosis Post-concussion headache Learning difficulty (04/21/13) IEP in place Kidney stones hospitalized 2014 and 2018 Surgical History Surgical History Myringotomy w/ PE (pressure equalizing) tubes Tobacco Smoking/Tobacco Use Status: Current-Occasional Tobacco Type: e-cigarettes Alcohol Alcohol Intake: former Substance Use Substance use: Current Sobriety Substance use type: former substance user Date of last use: marijuana Prental History History 2 2 Para 2 Hx # Term Pregnancies 0 Multiple births 0 Hx # Pregnancies 1 Ectopic pregnancies 0 AB induced 0 Hx Number of Living Children 2 AB spontaneous 0 Past Pregnancies Del. Date GA/Weeks # Preg Succ Route Wgt Sex Labor Lgth Anesth esia Location Prov Complic 03/23/19 36 No Yes vaginal 2834.952 g Female 8 Christine Jean CNM 04/13/23 34 No Yes vaginal 2250.952 g Male 10hrs 12min JAREK Castillo Delivery Date: 03/23/19 Last Updated by: Janis Jean CNM No complications. Spontaneous labor. Mother with perineal and periurethral abrasions not needing repair. Delivery Date: 04/13/23 Last Updated by: YENNI Osei; Shoulder cord and true knot; @1min=7; @5min=8 Vital Signs and Lab Results Vital Signs Most Recent Vital Signs in EMR: Most Recent Vital Signs Temp Pulse Resp BP Pulse Ox 36.5 C 88 16 129/69 98 11/26/24 09:02 11/26/24 09:02 11/26/24 09:02 11/26/24 09:02 11/26/24 09:02 Point of Care Results Point of Care Results: POC- Test(urine) Negative 11/26/24 09:35 Lab Results Complete Blood Count: 2 WBC, (4.4-10.8) 6.18 10^3/uL 11/19/24, 02:10 RBC, (3.93-5.22) 4.42 10^6/uL 11/19/24, 02:10 Hgb, (11.2-15.7) 13.3 g/dL 11/19/24, 02:10 Hct, (36.0-46.0) 39.5 % 11/19/24, 02:10 Plt Count, (130-400) 225 10^3/uL 11/19/24, 02:10 Complete Metabolic Panel: 2 Sodium, (136-145) 142 mmol/L 11/19/24, 02:10 Potassium, (3.5-5.1) 3.3 mmol/L L 11/19/24, 02:10 Chloride, (98-107) 105 mmol/L 11/19/24, 02:10 Carbon Dioxide, (21.0-32.0) 26.4 mmol/L 11/19/24, 02 :10 BUN, (7-18) 12 mg/dL 11/19/24, 02:10 Creatinine, (0.55-1.02) 0.7 mg/dL 11/19/24, 02:10 Est GFR (CKD-EPI 2020), (mL/min/1.73m2) 123.78 11/19/24, 02:10 Calcium, (8.5-10.1) 8.9 mg/dL 11/19/24, 02:10 Glucose, (74-106) 106 mg/dL 11/19/24, 02:10 Panel: 2 Serum HCG, Qual Negative 11/19/24, 02:10 Imaging and Studies Imaging and Studies Study information below may be from another EMR and interpreted by another provider. Please see original notes in EMR for more complete details. EKG Summary: EKG PATIENT NAME: Maryellen Velasco UNIT #: [id number] ORDERING PROVIDER: Tacos Del Toro DO PRIMARY CARE PROVIDER: TACOS DEL TORO DO DATE/TIME OF SERVICE: 11/23/21 1621 : 2000 PERFORMING LOCATION: [facility] APPROVED REPORT Exam: Resting ECG Reason for Exam: Tachycardia, exertional dyspnea Patient Location: O HR:94 bpm ECG Measurements Heart Rate 94 AXIS AZ 132 P 49 QRSd 90 QRS 42 QT 364 T59 QTc 455 Conclusion Sinus rhythm...normal P axis, V-rate 60- 99 Normal Electrocardiogram - <Electronically signed by CHASIDY ALMANZAR MD in [facility]> E-Sign Date: 11/24/21 E-Sign Time: 0800 Anesthesia Assessment and Plan Anesthesia History Personal History: No History of Anesthesia Complications Family History: No Family History of Anesthesia Complications Exercise Tolerance Exercise Tolerance: Metabolic Equivalents>4 Pertinent Negatives Pertinent Negatives: No Symptoms of GERD, No Major Cardiovascular Symptoms or Complaints, No Major Pulmonary Symptoms or Complaints and No History of CVA/TIA Cardiac & Pulmonary Exam Cardiac Exam: Normal S1/S2 Heart Sounds Pulmonary Exam: Clear Bilateral Breath Sounds Cardiac and Pulmonary Comment:: e-cigarettes Implantable Cardiac Device Does patient have a Pacemaker or an ICD?: No Airway Exam Known Difficult Airway: No Mallampati Class: 2 Mouth Opening: Normal (> 3cm) Thyromental Distance: Greater than 3 cm Neck Range of Motion: Full ROM Neck Circumference: Normal Teeth Condition: Normal Dentition Tooth Numberin 1. Patient indicates missing molar ASA Classification ASA Score: ASA 2 Emergency Case?: No NPO Status NPO Status: NPO Clears >2 hours, Solids >8 hours Status Status: Negative HCG Anesthesia Plan Resuscitation Status: Full Code Anesthesia Technique: General Anesthesia Airway Planned: Natural Airway Monitors Used: Standard Monitors Preoperative Comments:: History of kidney stones x 2, passed without intervention. GA natural airway 11/19/2024 and did well. Reports lacking memory until 1630 in the afternoon on that date. I plan to reduce midazolam dosing today, otherwise to repeat plan of last anesthetic today.
[2024-11-26] MEDS: ceFAZolin 2 GM/50 ML BAG IVPB (11:13)
[2024-11-26] MEDS: Omnipaque 300 MG/ML 50 ML BTL (11:47)
[2024-11-26] MEDS: Lidocaine 2% Jelly 11 ML SYR (11:48)
--- NOTE | 2024-11-26 12:13 | W.PM.DSUDISC ---
Date of service: 11/26/24 Discharge Plan Disposition Patient Disposition: Home Condition: Stable Discharge Details Reason For Visit: ureteroscopy Attending Provider: Frederick Huerta Primary Care Provider: Tacos Del Toro Home Meds and New Rx's Prescriptions: Discontinued tramadol 50 mg tablet No Action oxycodone 5 mg tablet 5 - 10 mg PO Q6H MDD 6 PRN (Reason: pain) Qty: 20 0RF Patient Comments: pt reports she did not pick it up ketorolac 10 mg tablet 10 mg PO Q8H PRN (Reason: pain) Qty: 15 0RF Rx Instructions: maximum total duration of 5 days from all oral, intranasal, or parenteral formulations may take along with tylenol Discharge Instructions Additional Instructions: Your stone has been removed and has been sent to be tested for the chemical analysis. There is no need to strain your urine. You have a stent back in the left ureter. This time, there is a string attached to the stent. The string is tucked into your vaginal cavity. We would like to remove the stent in the office in about 3 to 5 days. If the stent gets dislodged before it is scheduled to be removed, there is no serious problem. You may notice that you have no control of the urine if the stent gets dislodged. We would then ask you to pull the string until the entire stent comes out. The stent is blue in color and is quite long. We will see you back in the office in about 6 to 8 weeks. You will have an ultrasound done before your appointment. We will know what your stone is made of at that time. Activity:: Activity as Tolerated Shower/Bathe:: 24 hours Diet:: As Tolerated Discharge Orders Discharge Orders: Discharge Order (Routine); Ordered 11/26/24 Ordered By: Frederick Huerta Other Ambulatory Orders: US renal (Routine) Timeframe: 6 Weeks Facility: [facility] - Location: DIAGNOSTIC IMAGING Ordered By: Frederick Huerta DS: Diagnosis Discharge Diagnosis (1) Calculus of proximal left ureter: Status: Acute
--- NOTE | 2024-11-26 12:18 | ROE_ITS ---
Operative Note Operative Note PRE-OP DIAGNOSIS: Left ureteral stone PROCEDURE: Cystoscopy, remove left ureteral stent, left retrograde pyelogram, left flexible ureteroscopy, holmium laser lithotripsy of left ureteral stone, extraction of multiple stone fragments, insert left ureteral stent. SURGEON: Frederick Huerta ANESTHESIA TYPE: Local By Surgeon and General:No Airway Refer to Anesthesia Record ESTIMATED BLOOD LOSS: 5 PATHOLOGY: other (stones for chemical analysis) COMPLICATIONS: None Patient was transported to: PACU Patient's condition: stable Implants: 4.8 [place]ian by 22 to 30 cm left ureteral stent with safety string attached Indications: This is a 23-year-old woman who was seen previously with an obstructing left ureteral stone. Her pain could not be well-controlled, so we placed a ureteral stent. She presents now for stent removal and ureteroscopy to address her stone Findings: Embedded left proximal ureteral stone Procedure Description: The patient was given IV antibiotics and brought to the operating room on 11/26/2024. After successful induction of general anesthesia, she was placed in the dorsal lithotomy position. Her genitalia was prepped and draped. 2% Xylocaine jelly was instilled into the urethra to act as a local anesthetic. A 22 [place]ian rigid cystoscope was passed through the urethra into the bladder. The bladder was inspected. A stent could be seen protruding from the left ureteral orifice. The stent was grasped with a biopsy forceps and brought to the level of the urethral meatus. A guidewire was advanced through the lumen of the stent and the stent was removed. We then passed a dual-lumen catheter over the wire and positioned the catheter in the mid ureter. We injected Omnipaque through the second lumen of the dual- lumen catheter and identified the left proximal ureteral stone. We passed a second guidewire and removed the dual-lumen catheter. We then advanced a ureteral access sheath over one of the wires leaving the other wire as a safety wire. We passed a flexible ureteroscope through the ureteral access sheath and visualized a stone that appeared to be embedded in the wall of the left upper ureter. We treated the stone with a 272 ?m holmium laser fiber. We used a combination of dusting and fragmentation settings to successfully treat the stone. Multiple stone fragments were then grasped in a ZeroTip stone basket and removed. Each of the stone fragments were sent to pathology for chemical analysis. The remainder of the kidney was examined and no additional stones were seen. The ureteral access sheath and ureteroscope were then withdrawn and there was no evidence of ureteral injury on direct inspection. We then passed a 4.8 [place]ian variable length stent over the safety wire. The proximal end of the stent was curled in the renal pelvis and the distal end was curled within the bladder. We left the safety string in place and tucked the safety string into the patient's vaginal cavity. The positioning of the stent was confirmed both fluoroscopically and cystoscopically. The patient tolerated this procedure well with no complications. Date of Procedure: 11/26/24
[2024-11-26] MEDS: fentaNYL 100 MCG/2 ML VIAL IVP ×2 (12:59→13:09)
[2024-11-26] MEDS: Phenazopyridine 200 MG TAB PO (13:30)
--- NOTE | 2024-11-26 13:39 | W.ANESPOSTOP ---
Postoperative Evaluation Date, Time and Location Date Performed: 11/26/24 Time Performed: 13:39 Patient Location: Day Surgery Unit Vital Signs Most Recent Imported Vital Signs: Most Recent Vital Signs Temp Pulse Resp BP Pulse Ox 36 C L 90 16 107/74 99 11/26/24 13:20 11/26/24 13:20 11/26/24 13:20 11/26/24 13:20 11/26/24 13:20 Pain Score Most Recent Pain Score: Most Recent Pain Score Pain Level 6 11/26/24 13:20 Assessment Mental Status: Awake (Alert & Oriented to Patient Baseline) Airway and Respiratory Function: Patent airway with normal (patient baseline) respiratory exam Cardiovascular Function: Hemodynamically Stable Hydration Status: Adequately Hydrated Nausea & Vomiting: No Nausea or Vomiting Pain: Pain is tolerable per patient Peripheral Nerve Block: Patient did not receive a nerve block
== END 2024-11-26 14:05 | disposition home or self-care (01) ==
PROVIDERS: PCP Family Medicine; Visit Provider Urology
PROC: (CPT 52356; principal; 2024-11-26 10:00)
DX: N20.1 Calculus of ureter (principal)
CPT/HCPCS: 52356; 81025; 74420; 82365; J0131; J0690; J1100; J1885; J2003; J2250; J2405; J2704; J3010; Q9967

== ENCOUNTER 2024-11-27 20:19 | Observation (INO) | payer MEDICAID, SELFPAY ==
[2024-11-27] VITALS (14 sets, daily range): BP systolic 111–122; BP diastolic 67–87; PULSE 74–133; RESP 18; TEMP 36.6–37.6; O2SAT 98–99
--- NOTE | 2024-11-27 20:30 | DI.RAD_ITS ---
Exam(s) XR ABDOMEN FLAT PLATE EXAM: 2D digital imaging was performed. CLINICAL HISTORY: s/p stent left ureter, pain. COMPARISON: CT CT RENAL COLIC WO from 11/19/2024 XA XR RETROGRADE IN OR from 11/26/2024 TECHNIQUE: Supine views of the abdomen performed. FINDINGS: BOWEL GAS PATTERN: Nondistended. CALCIFICATIONS: No radiopaque calcifications. The previously noted ureteral calculus is not visible. A stent is noted extending from the expected location of the renal pelvis into the urinary bladder. OSSEOUS STRUCTURES: Unremarkable for age. Visualized lung bases: Clear. IMPRESSION: 1. Nonobstructive bowel gas pattern. 2. Left ureteral stent appears in good position. No radiopaque calculi. The preliminary [facility] report was reviewed. DATA REPOSITORY: RADIATION DOSE DELIVERED:
[2024-11-27] MEDS: Normal Saline 1,000 ML 1000 ML IV (20:41)
[2024-11-27] MEDS: Ketorolac 15 MG/ML VIAL 7.5 MG IVP (20:42)
[2024-11-27] MEDS: MORPHine 4 MG/ML SYR IVP (20:44)
[2024-11-27 20:45] LABS: Abs Immature Grans 0.03 10^3/uL (0.0-0.06); HCT 40.7 % (36.0-46.0); HGB 13.1 g/dL (11.2-15.7); Immature Grans % 0.3 %; MCH 28.9 pg (27.0-33.0); MCHC 32.2 % (32.0-36.0); MCV 90 fL (80-95); MPV 8.7 fL (8.0-11.0); Platelet Count 331 10^3/uL (130-400); RBC 4.53 10^6/uL (3.93-5.22); RDW 12.1 % (11.7-14.6); RDW-SD 40.0 fL; WBC 11.43 10^3/uL (4.4-10.8)
[2024-11-27 21:00] LABS: ALT 19 U/L (14-59); AST 9 U/L (15-37); Albumin 4.5 g/dL (3.4-5.0); Alkaline Phosphatase 52 U/L (46-116); Anion Gap 10.0 mmol/L (3-11); BUN 11 mg/dL (7-18); Bilirubin, Total 0.4 mg/dL (0.2-1.0); CO2 29.0 mmol/L (21.0-32.0); Calcium 9.3 mg/dL (8.5-10.1); Chloride 103 mmol/L (98-107); Estimated GFR 105.45 (mL/min/1.73m2); Glucose 105 mg/dL (74-106); Potassium 3.2 mmol/L (3.5-5.1); Sodium 142 mmol/L (136-145); Total Protein 8.2 g/dL (6.4-8.2)
[2024-11-27 21:13] LABS: Glucose Negative (Negative)
[2024-11-27 21:30] LABS: C & S Indicated? Yes; RBC >50 HPF (0-2)
[2024-11-27] MEDS: MORPHine 10 MG/ML VIAL 6 MG IVP (21:35)
--- NOTE | 2024-11-27 22:38 | HPE_ITS ---
Date of service: 11/27/24 Time of Service: 22:38 Assessment and Plan Assessment and plan (1) Intractable pain: Status: Acute Assessment and plan: -s/p left ureteral stent placement and lithotripsy on 11/26 -given a total of 6mg IV morphine in the ED without improvement in pain -will start 2mg IV dilaudid Q4hr PRN pain (2) Calculus of proximal left ureter: Status: Acute Assessment and plan: -as noted above (3) UTI (urinary tract infection): Status: Acute Assessment and plan: -likely secondary to ureteral stent placement and lithitripsy as noted above -does not meet sepsis criteria -CTX Q24hr -f/u urine culture results History of Present Illness History of Present Illness Chief Complaint: Left flank pain Narrative: 23-year-old female is postoperative from lithotripsy and left ureteral placement on 11/26/2024 who presents to the emergency department with worsening pain. Patient states that she had been experiencing pain since her procedure but it got significantly worse around 1 PM in the afternoon on 11/27/2024 prompting her to present to the emergency department. She denies any fevers, lightheadedness, dizziness, does complain of some dysuria. In the emergency department the patient was noted to have a normal vital signs, normal CBC and CMP but UA was highly suggestive of urinary tract infection. Additionally, patient was in significant amount of pain and received a total of 10 mg of IV morphine without significant improvement. KUB was done without any abnormality at emergency room provider did discuss with Dr. Huerta of urology who recommended pain control and antibiotics. At which time emergency room provider paged hospitalist for admission for patient with intractable pain secondary to recent ureteral stent stent placement and lithotripsy now with urinary tract infection. Review of Systems All systems reviewed & are unremarkable except as noted in HPI and below PFSH All Active Problems (Updated 11/27/24 @ 23:06 by NELLIE Blake) UTI (urinary tract infection) (Acute) Intractable pain (Acute) Calculus of proximal left ureter (Acute) Inverted nipple (Acute) Previous delivery, antepartum (Acute) Maternal varicella, non-immune (Acute) Rubella non-immune status, antepartum (Acute) Medical History Family history of coronary arteriosclerosis Post-concussion headache Learning difficulty (04/21/13) IEP in place Kidney stones hospitalized 2014 and 2018 Surgical History Myringotomy w/ PE (pressure equalizing) tubes Family History Other Personal history of malignant neoplasm MGM Father Essential hypertension Heart disease Mother Asthma Diabetes Essential hypertension Social History Smoking/Tobacco Use Status: Current-Occasional Tobacco Type: e-cigarettes Smoking risk assessment performed?: Yes Alcohol Intake: former Drug use: Current Sobriety Substance use type: former substance user Date of last use: marijuana Adopted: No Caregiver/Support person: No Foster care: No Household members: children Housing: house Number of Children: 1 Communication Needs: None Education Level: high school Do you need help understanding health information?: Never current occupation: [employer] Pets and animals: No Sexually active: No Do you think of yourself as: straight/heterosexual Current gender identity: female What is your relationship status?: never How often do you talk on the phone with friends or family?: three or more times per week How often do you get together with friends or relatives?: three or more times per week Do you belong to any clubs or organized social groups?: no Panel score (0-1 are the most socially isolated patients): 1 What type of physical activity do you participate in: walking Duration: 60-90 minutes/day Frequency: 5-6 times per week Maryellen/Judaism: None Special maryellen needs: No Seatbelt use: always Helmet use: No Drive intox or ride w/intox driver examiner: No Do you feel safe at home: Yes Do you feel safe in your relationship?: Yes Female Reproductive History Menstrual Age of Menarche: 14 Duration of menses: <3 days control method: pills (failed bcm.) History History 2 2 Para 2 Hx # Term Pregnancies 0 Multiple births 0 Hx # Pregnancies 1 Ectopic pregnancies 0 AB induced 0 Hx Number of Living Children 2 AB spontaneous 0 Past Pregnancies Del. Date GA/Weeks # Preg Succ Route Wgt Sex Labor Lgth Anesth esia Location [facility] 03/23/19 36 No Yes vaginal 6 lb 4 oz Female 8 Christine day CNM 04/13/23 34 No Yes vaginal 4 lb 15.4 oz Male 10hrs 12min JAREK Castillo Delivery Date: 03/23/19 Last Updated by: Janis Jean CNM No complications. Spontaneous labor. Mother with perineal and periurethral abrasions not needing repair. Delivery Date: 04/13/23 Last Updated by: YENNI Osei; Shoulder cord and true knot; @1min=7; @5min=8 Meds Allergies and Home Medications Allergies Allergy/AdvReac Type Severity Reaction Status Date / Time No Known Allergies Allergy Verified 11/27/24 20:26 Home Medications ?Medication ?Instructions ?Recorded ?Confirmed ?Type ketorolac 10 mg tablet 10 mg PO Q8H PRN pain #15 ta bs 11/19/24 11/27/24 Rx oxycodone 5 mg tablet 5 - 10 mg (1 - 2 x 5 mg) PO Q6H 11/24/24 11/27/24 Rx PRN pain #20 tabs Exam Narrative Exam Narrative: Fatigued but well-appearing young female laying in bed in no acute distress, ANO x 4, heart regular rhythm, lungs good auscultation bilaterally, abdomen soft, nontender, nondistended Results Labs 11/27/24 20:37 11/27/24 20:37 Labs: Laboratory Results - last 24 hr 11/27/24 11/27/24 20:37 21:02 WBC 11.43 H RBC 4.53 Hgb 13.1 Hct 40.7 MCV 90 MCH 28.9 MCHC 32.2 RDW 12.1 Plt Count 331 MPV 8.7 Immature Gran % 0.3 Neutrophils % 63.8 Lymphocytes % 29.6 Monocytes % 5.3 Eosinophils % 0.6 Basophils % 0.4 Nucleated RBC % 0.0 Absolute Neutrophils 7.29 H Absolute Lymphocytes 3.38 Absolute Monocytes 0.61 Absolute Eosinophils 0.07 Absolute Basophils 0.05 VBG Lactate 1.0 Sodium 142 Potassium 3.2 L Chloride 103 Carbon Dioxide 29.0 Anion Gap 10.0 BUN 11 Creatinine 0.8 Est GFR (CKD-EPI 2020) 105.45 Glucose 105 Calcium 9.3 Total Bilirubin 0.4 AST 9 L ALT 19 Alkaline Phosphatase 52 Total Protein 8.2 Albumin 4.5 Urine Color Sharonda Urine Clarity Cloudy Urine pH 6.0 Ur Specific [place] >= 1.030 H Urine Protein >=300 H Urine Ketones Trace H Urine Blood Large H Urine Nitrite Positive H Urine Bilirubin Small H Urine Urobilinogen 1.0 H Ur Leukocyte Esterase Small H Urine RBC >50 H Urine WBC Ur Epithelial Cells Not Applicable Urine Crystals Not Applicable Urine Bacteria Not Applicable Urine Mucus Not Applicable Ur Culture Indicated? Yes Urine Glucose Negative Last Vital Signs Temp 99.7 F H 11/27/24 20:22 Pulse 89 11/27/24 21:40 Resp 18 11/27/24 20:22 BP 114/68 11/27/24 21:32 Pulse Ox 98 11/27/24 21:40 Time Spent Time spent with Patient: >75 minutes Time was spent: preparing to see the patient(eg.review tests), obtaining and/or reviewing separately otained hiistory, ordering medications,tests, procedures, referring, communicating with other health nursing care attendant, indepentently interpreting results, counseling the patient and care coordination
--- NOTE | 2024-11-27 22:47 | DI.VRAD_ITS ---
PROCEDURE INFORMATION: Exam: XR Abdomen Exam date and time: 11/27/2024 9:28 PM Age: 23 years old Clinical indication: Abdominal pain; Generalized; Prior surgery; Surgery date: Post-operative (0-2 days); Surgery type: Stent in left ureter; S/P stent left ureter, pain TECHNIQUE: Imaging protocol: Radiologic exam of the abdomen. Views: Frontal supine view of the abdomen. 1 View. COMPARISON: CT RENAL COLIC WO 11/19/2024 2:35 AM FINDINGS: Lungs: Lung bases are clear. Gastrointestinal tract: Bowel gas pattern is unremarkable. Organs: A left-sided double-J ureteral stent is in position. Unremarkable in course and appearance. No calculi are seen along the course of this stent. Bones/joints: No acute skeletal change. IMPRESSION: 1. Left double-J ureteral stent appears well positioned. 2. No Pericatheter calcifications or calculi are visible. 3. Unremarkable bowel gas pattern. Dictated and Authenticated by: Jack Galvan MD. Orderin Kailyn Lane MD
--- NOTE | 2024-11-27 22:58 | W.ED.GENAD ---
Discharge Plan Disposition Patient Disposition: Admit to [facility] Condition: Stable Discharge Details Clinical Impression: Intractable pain, UTI (urinary tract infection) Admit Date/Time: 11/27/24 22:38 Admit Provider: Michael Ann Attending Provider: Michael Ann Primary Care Provider: [place]o ED Provider: Ariana Avina Discharge Data Discharge Date/Time-TO BE ENTERED AT DEPARTURE: 11/27/24 23:22 HPI General Date/Time Provider Initiated Documentation: 11/27/24 20:32. HPI Narrative: This 23-year-old female presents 24 hours post lithotripsy with stent placement by Dr. Huerta with worsening pain both flank and suprapubic denies fever or chills. Is nauseous without vomiting. Denies chance of Related Data Home Medications ?Medication ?Instructions ?Recorded ?Confirmed oxycodone 5 mg tablet 5 - 10 mg (1 - 2 x 5 mg) PO Q6H 11/24/24 11/27/24 PRN pain #20 tabs acetaminophen 325 mg tablet 650 mg (2 x 325 mg) PO QID #0 tabs 11/28/24 naproxen 500 mg tablet 500 mg PO BID #0 tabs 11/28/24 promethazine 25 mg tablet 25 mg PO Q6H PRN PRN #10 tabs 11/28/24 Previous Rx's ?Medication ?Instructions ?Recorded oxycodone 5 mg tablet 5 - 10 mg (1 - 2 x 5 mg) PO Q6H 11/24/24 PRN pain #20 tabs acetaminophen 325 mg tablet 650 mg (2 x 325 mg) PO QID #0 tabs 11/28/24 naproxen 500 mg tablet 500 mg PO BID #0 tabs 11/28/24 promethazine 25 mg tablet 25 mg PO Q6H PRN PRN #10 tabs 11/28/24 Allergies Allergy/AdvReac Type Severity Reaction Status Date / Time No Known Allergies Allergy Verified 11/27/24 20:26 General Stated Complaint: FlankPain AV: 3 Exam Narrative Exam Narrative: General Appearance: Alert and oriented. Vital signs: Within normal limits. HEENT: Within normal limits. Respiratory: Within normal limits. Abdominal: Left flank tenderness and suprapubic tenderness Skin: Surgical site well healing without dehiscence, scant blood noted. Neurological: Neurovascularly intact. Course Vital Signs Vital signs: Vital Signs Temperature 37.6 C H 11/27/24 20:22 Pulse 133 H 11/27/24 20:22 Respiratory Rate 18 11/27/24 20:22 Blood Pressure 122/87 11/27/24 20:22 Pulse Oximetry 98 11/27/24 20:22 Temperature 37.6 C H 11/27/24 20:22 Temperature Source Tympanic 11/27/24 20:22 Pulse 89 11/27/24 21:40 Respiratory Rate 18 11/27/24 20:22 Blood Pressure 114/68 11/27/24 21:32 Blood Pressure Mean 83 11/27/24 21:32 Pulse Oximetry 98 11/27/24 21:40 Pain Level 10 11/27/24 20:22 Lab/Test Results Lab/Test Results: 11/27/24 22:35 Blood Blood Culture - Pending 11/27/24 21:46 Blood Blood Culture - Pending 11/27/24 21:02 Urine - Reflex from Ua Urine Culture - Pending Laboratory Tests Range/Units 11/27/24 11/27/24 20:37 21:02 WBC (4.4-10.8) 10^3/uL 11.43 H RBC (3.93-5.22) 10^6/uL 4.53 Hgb (11.2-15.7) g/dL 13.1 Hct (36.0-46.0) % 40.7 MCV (80-95) fL 90 MCH (27.0-33.0) pg 28.9 MCHC (32.0-36.0) % 32.2 RDW (11.7-14.6) % 12.1 Plt Count (130-400) 10^3/uL 331 MPV (8.0-11.0) fL 8.7 Immature Gran % % 0.3 Neutrophils % % 63.8 Lymphocytes % % 29.6 Monocytes % % 5.3 Eosinophils % % 0.6 Basophils % % 0.4 Nucleated RBC % (0.0-0.3) % 0.0 Absolute Neutrophils (1.2-6.7) 10^3/uL 7.29 H Absolute Lymphocytes (1.2-3.4) 10^3/uL 3.38 Absolute Monocytes (0.1-0.8) 10^3/uL 0.61 Absolute Eosinophils (0.0-0.7) 10^3/uL 0.07 Absolute Basophils (0.0-0.2) 10^3/uL 0.05 VBG Lactate (<or=2.0) mmol/L 1.0 Sodium (136-145) mmol/L 142 Potassium (3.5-5.1) mmol/L 3.2 L Chloride (98-107) mmol/L 103 Carbon Dioxide (21.0-32.0) mmol/L 29.0 Anion Gap (3-11) mmol/L 10.0 BUN (7-18) mg/dL 11 Creatinine (0.55-1.02) mg/dL 0.8 Est GFR (CKD-EPI 2020) (mL/min/1.73m2) 105.45 Glucose (74-106) mg/dL 105 Calcium (8.5-10.1) mg/dL 9.3 Total Bilirubin (0.2-1.0) mg/dL 0.4 AST (15-37) U/L 9 L ALT (14-59) U/L 19 Alkaline Phosphatase (46-116) U/L 52 Total Protein (6.4-8.2) g/dL 8.2 Albumin (3.4-5.0) g/dL 4.5 Urine Color (Yellow) Sharonda Urine Clarity (Clear) Cloudy Urine pH (5-8) 6.0 Ur Specific [place] (1.005-1.025) >= 1.030 H Urine Protein (Neg-Trace) mg/dL >=300 H Urine Ketones (Negative) mg/dL Trace H Urine Blood (Negative) Large H Urine Nitrite (Negative) Positive H Urine Bilirubin (Negative) Small H Urine Urobilinogen (Up to 0.2) mg/dL 1.0 H Ur Leukocyte Esterase (Negative) Small H Urine RBC (0-2) HPF >50 H Urine WBC (0-5) HPF Ur Epithelial Cells Not Applicable Urine Crystals Not Applicable Urine Bacteria Not Applicable Urine Mucus Not Applicable Ur Culture Indicated? Yes Urine Glucose (Negative) mg/dL Negative POC- Test(urine) Negative Medical Decision Making Urinalysis: Positive for nitrites, leukocyte esterase, and significant RBCs consistent with lithotripsy. Unable to see WBCs due to RBCs. Blood cultures and lactate ordered due to mild leukocytosis. Potassium of 3.2 will supplement KUB: No acute abnormality. Radiologist interpretation of my review Initial Assessment: 23-year-old female postoperative following lithotripsy for left-sided stone and stent placement. Pain returned at 1300 hours with tenderness, nausea without vomiting, and no fever or chills. Acute distress on arrival. ED Course: - Given fluids - 10 mg morphine - Toradol - Blood cultures and lactate ordered due to mild leukocytosis - KUB ordered, no acute abnormality - Ceftriaxone 2 g was initiated - This was discussed with Dr. Ann, admitting hospitalist will admit, case discussed with Dr. Huerta urology recommends admission for IV antibiotics and pain control no indication for urgent surgery as she has a stent and the stone has been removed does not feel like she needs to be transferred to a facility with in-house urology at this time does not feel CT is required Final Assessment: Postoperative following lithotripsy with persistent pain and mild leukocytosis. Urinalysis positive for nitrites, leukocyte esterase, and significant RBCs. Blood cultures and lactate ordered. KUB showed no acute abnormality. IV antibiotics and pain control recommended. Clinical Impression: - Postoperative following lithotripsy - Persistent pain - Mild leukocytosis Disposition: - Admission: Hospital for pain control and IV antibiotics. Admitting hospitalist Dr. Ann. Dr. Huerta available for virtual consult. Quality:SDOH Health Related Social Needs: Health related social needs risk of homeless Health related social needs details N/A PFSH All Active Problems (Updated 11/29/24 @ 00:02 by RUSH SHIELDS) UTI (urinary tract infection) (Acute) Intractable pain (Acute) Calculus of proximal left ureter (Acute) Inverted nipple (Acute) Previous delivery, antepartum (Acute) Maternal varicella, non-immune (Acute) Rubella non-immune status, antepartum (Acute) Medical History Family history of coronary arteriosclerosis Post-concussion headache Learning difficulty (04/21/13) IEP in place Kidney stones hospitalized 2014 and 2019 Surgical History Myringotomy w/ PE (pressure equalizing) tubes Family History Other Personal history of malignant neoplasm MGM Father Essential hypertension Heart disease Mother Asthma Diabetes Essential hypertension Social History Smoking/Tobacco Use Status: Current-Occasional Tobacco Type: e-cigarettes Smoking risk assessment performed?: Yes Alcohol Intake: former Drug use: Current Sobriety Substance use type: former substance user Date of last use: marijuana Adopted: No Caregiver/Support person: No Foster care: No Household members: children Housing: house Number of Children: 1 Communication Needs: None Education Level: high school Do you need help understanding health information?: Never 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 Pets and animals: No Sexually active: No Do you think of yourself as: straight/heterosexual Current gender identity: female What is your relationship status?: never How often do you talk on the phone with friends or family?: three or more times per week How often do you get together with friends or relatives?: three or more times per week Do you belong to any clubs or organized social groups?: no Panel score (0-1 are the most socially isolated patients): 1 What type of physical activity do you participate in: walking Duration: 60-90 minutes/day Frequency: 5-6 times per week Maryellen/Adventism: None Special maryellen needs: No Seatbelt use: always Helmet use: No Drive intox or ride w/intox delivery driver/supervisor: No Do you feel safe at home: Yes Do you feel safe in your relationship?: Yes Female Reproductive History Menstrual Age of Menarche: 14 Duration of menses: <3 days control method: pills (failed bcm.) History History 2 Para 2 Hx # Term Pregnancies 0 Multiple births 0 Hx # Pregnancies 1 Ectopic pregnancies 0 AB induced 0 Hx Number of Living Children 2 AB spontaneous 0 Past Pregnancies Del. Date GA/Weeks # Preg Succ Route Wgt Sex Labor Lgth Anesthesia Location Prov Complic 03/23/19 36 No Yes vaginal 2834.952 g Female 8 Christine Jean CNM 04/13/23 34 No Yes vaginal 2250.952 g Male 10hrs 12min JAREK Castillo Delivery Date: 03/23/19 Last Updated by: Janis Jena CNM No complications. Spontaneous labor. Mother with perineal and periurethral abrasions not needing repair. Delivery Date: 04/13/23 Last Updated by: Reyna LaBounty, TORQUE TESTER Jaylon; Shoulder cord and true knot; @1min=7; @5min=8
--- NOTE | 2024-11-27 23:21 | W.PC.ACHO ---
Registration Status: REG ER Primary Language: Preferred Language: Syriac ED Information & Data Chief Complaint FlankPain 11/27/24 23:05 Triage Note pt with lithotripsy 11/27/24 20:22 yesterday with stent placement pt states that about an hour ago her pain became increasingly unbearable Medical / Surgical History (Last Reviewed 11/26/24 @ 09:06 by Starr Titus, RN) Family history of coronary arteriosclerosis Post-concussion headache Learning difficulty (04/21/13) Kidney stones (Last Reviewed 11/26/24 @ 09:06 by Starr Titus, RN) Myringotomy w/ PE (pressure equalizing) tubes Most Recent Vital Signs Temperature 37.6 C H 11/27/24 20:22 Temperature Source Tympanic 11/27/24 20:22 Pulse 88 11/27/24 22:00 Respiratory Rate 18 11/27/24 23:17 Blood Pressure 112/76 11/27/24 21:46 Blood Pressure Mean 84 11/27/24 21:46 Pulse Oximetry 99 11/27/24 22:00 Pain Level 10 11/27/24 20:22 Allergies No Known Allergies Allergy (Verified 11/27/24 20:26) IV IV Catheter Type [Right Saline Lock Antecubital] IV Catheter Gauge [Right 20 Antecubital] Diagnostics 11/27/24 11/27/24 Range/Units 21:02 20:37 WBC 11.43 H (4.4-10.8) 10^3/uL RBC 4.53 (3.93-5.22) 10^6/uL Hgb 13.1 (11.2-15.7) g/dL Hct 40.7 (36.0-46.0) % MCV 90 (80-95) fL MCH 28.9 (27.0-33.0) pg MCHC 32.2 (32.0-36.0) % RDW 12.1 (11.7-14.6) % Plt Count 331 (130-400) 10^3/uL MPV 8.7 (8.0-11.0) fL Immature Gran % 0.3 % Neutrophils % 63.8 % Lymphocytes % 29.6 % Monocytes % 5.3 % Eosinophils % 0.6 % Basophils % 0.4 % Nucleated RBC % 0.0 (0.0-0.3) % Absolute Neutrophils 7.29 H (1.2-6.7) 10^3/uL Absolute Lymphocytes 3.38 (1.2-3.4) 10^3/uL Absolute Monocytes 0.61 (0.1-0.8) 10^3/uL Absolute Eosinophils 0.07 (0.0-0.7) 10^3/uL Absolute Basophils 0.05 (0.0-0.2) 10^3/uL VBG Lactate 1.0 (<or=2.0) mmol/L Sodium 142 (136-145) mmol/L Potassium 3.2 L (3.5-5.1) mmol/L Chloride 103 (98-107) mmol/L Carbon Dioxide 29.0 (21.0-32.0) mmol/L Anion Gap 10.0 (3-11) mmol/L BUN 11 (7-18) mg/dL Creatinine 0.8 (0.55-1.02) mg/dL Est GFR (CKD-EPI 2020) 105.45 (mL/min/1.73m2) Glucose 105 (74-106) mg/dL Calcium 9.3 (8.5-10.1) mg/dL Total Bilirubin 0.4 (0.2-1.0) mg/dL AST 9 L (15-37) U/L ALT 19 (14-59) U/L Alkaline Phosphatase 52 (46-116) U/L Total Protein 8.2 (6.4-8.2) g/dL Albumin 4.5 (3.4-5.0) g/dL Urine Color Sharonda (Yellow) Urine Clarity Cloudy (Clear) Urine pH 6.0 (5-8) Ur Specific [place] >= 1.030 H (1.005-1.025) Urine Protein >=300 H (Neg-Trace) mg/dL Urine Ketones Trace H (Negative) mg/dL Urine Blood Large H (Negative) Urine Nitrite Positive H (Negative) Urine Bilirubin Small H (Negative) Urine Urobilinogen 1.0 H (Up to 0.2) mg/dL Ur Leukocyte Esterase Small H (Negative) Urine RBC >50 H (0-2) HPF Urine WBC (0-5) HPF Ur Epithelial Cells Not Applicable Urine Crystals Not Applicable Urine Bacteria Not Applicable Urine Mucus Not Applicable Ur Culture Indicated? Yes Urine Glucose Negative (Negative) mg/dL 11/27/24 22:35 Blood Culture - Pending Blood 11/27/24 21:46 Blood Culture - Pending Blood 11/27/24 21:02 Urine Culture - Pending Urine - Reflex from Ua [id number] Documentation POC Urine Test Start: 11/27/24 20:36 Freq: .Urine Test Status: Active Protocol: Activity Type Activity Date Activity User E-sign Co-sign Detail Recorded Client Recorded Date Recorded By Document 11/27/24 21:08 AB [id number] 11/27/24 21:08 AB Intake and Output - 24 Hour Total 11/27/24 20:19 thru 11/27/24 20:22 Weight 54.431 kg Falls Risk Assessment History of Falls No History 11/27/24 20:25 Contributing Factors No Factors 11/27/24 20:25 Ambulatory Aids Independent 11/27/24 20:25 Tubes/Lines None 11/27/24 20:25 Gait Evaluation No gait disturbance 11/27/24 20:25 Cognition No cognitive impairment 11/27/24 20:25 Fall Total Score 0 11/27/24 20:25 Level of Risk Standard/Low Risk 11/27/24 20:25 Problems (Last Reviewed 11/26/24 @ 09:06 by Starr Titus RN) UTI (urinary tract infection) (Acute) Intractable pain (Acute) Calculus of proximal left ureter (Acute) v v v v v v v v v Sending and/or Receiving Nurses: Please use comment section below to note any information pertinent to the patient hand-off not included above. Information / Comments: Report taken from SHARON De León from ED. Pt is A+Ox4. R sided pain, relieved by morphine. On RA, vitals stable Report received from:
[2024-11-27] MEDS: Normal Saline 1,000 ML 75 ML IV (23:56)
[2024-11-27] MEDS: cefTRIAXone 1 GM/50 ML BAG IVPB (23:56)
[2024-11-27] MEDS: Normal Saline Flush 10 ML SYR IVP (23:56)
[2024-11-28] MEDS: HYDROmorphone 2 MG/ML SYR 1 MG IVP ×3 (01:34→07:51)
[2024-11-28] MEDS: Normal Saline Flush 10 ML SYR IVP ×2 (01:35→05:54)
[2024-11-28 03:48] VITALS: BP 103/65; PULSE 65; RESP 18; TEMP 36.5; O2SAT 98
[2024-11-28 07:22] VITALS: BP 110/69; PULSE 70; RESP 14; TEMP 36.3; O2SAT 100
[2024-11-28 08:28] LABS: HCT 32.3 % (36.0-46.0); HGB 10.5 g/dL (11.2-15.7); MCH 29.7 pg (27.0-33.0); MCHC 32.5 % (32.0-36.0); MCV 92 fL (80-95); MPV 8.8 fL (8.0-11.0); Platelet Count 230 10^3/uL (130-400); RBC 3.53 10^6/uL (3.93-5.22); RDW 12.4 % (11.7-14.6); RDW-SD 41.2 fL; WBC 7.31 10^3/uL (4.4-10.8)
[2024-11-28 08:42] LABS: Anion Gap 6.0 mmol/L (3-11); BUN 10 mg/dL (7-18); CO2 28.0 mmol/L (21.0-32.0); Calcium 8.4 mg/dL (8.5-10.1); Chloride 108 mmol/L (98-107); Estimated GFR 128.46 (mL/min/1.73m2); Glucose 92 mg/dL (74-106); Magnesium 1.8 mg/dL (1.8-2.4); Potassium 3.9 mmol/L (3.5-5.1); Sodium 142 mmol/L (136-145)
--- NOTE | 2024-11-28 10:41 | W.PM.DS.N ---
Date of service: 11/28/24 Time of Service: 10:41 DS: Diagnosis Discharge Diagnosis (1) Intractable pain: Status: Acute (2) Calculus of proximal left ureter: Status: Acute (3) UTI (urinary tract infection): Status: Acute Discharge Plan Disposition Patient Disposition: Home Condition: Stable Discharge Details Reason For Visit: Intractable pain Admit Date/Time: 11/27/24 22:38 Admit Provider: Michael Ann Attending Provider: Michael Ann Primary Care Provider: Tacos Del Toro [facility] Hospital Course: This is a 23-year-old female patient with past medical history of left renal colic due to an obstructing ureteral stone. She did have a ureteral stent placed by Dr. Huerta. Plan is for stent removal on Saturday, November 30. She returned here to the emergency department for intractable pain and nausea and vomiting. She had been utilizing Toradol and tramadol for her pain and this was not covering it so a prescription for oxycodone was sent to her pharmacy but she did not fill this prescription as she was concerned that it would be too sedating for her to take and continue working. Unfortunately her pain became so severe she needed to present to the emergency department with nausea and vomiting. IV was established she was given antiemetics and IV pain medication. Her symptoms were still not controlled so hospitalist services was asked to admit her to the medical surgical unit for further symptom management. Hemodynamically she remained stable. She did not have an appetite but was tolerating liquids. Plan is to discharge home she will continue taking acetaminophen 4 times daily and naproxen 500 mg twice daily and fill the oxycodone prescription as previously directed. She will also be given a prescription for promethazine 25 mg to use if needed for nausea and vomiting plan is for her to follow-up with her appointment with Dr. Huerta on Saturday. She states she will return sooner for new or worsening symptoms Discharge discussed with Dr. Mancera Home Meds and New Rx's Prescriptions: New acetaminophen 325 mg Tablet 650 mg PO QID Qty: 0 0RF promethazine 25 mg Tablet 25 mg PO Q6H PRN PRNQty: 10 0RF naproxen 500 mg Tablet 500 mg PO BID Qty: 0 0RF Continued oxycodone 5 mg tablet 5 - 10 mg PO Q6H MDD 6 PRN (Reason: pain) Qty: 20 0RF Patient Comments: pt reports she did not pick it up Discontinued ketorolac 10 mg tablet 10 mg PO Q8H PRN (Reason: pain) Qty: 15 0RF Rx Instructions: maximum total duration of 5 days from all oral, intranasal, or parenteral formulations may take along with tylenol Discharge Instructions Instructions: Acute Pain, Adult, Ureteral Stent Additional Instructions: take medication as prescribed as needed for pain. push fluids to stay well hydrated, drink at least 6-8 glasses of water to stay well hydrated. Stand Alone Forms: Nursing Discharge Form Referrals: Frederick Huerta MD [ [facility] STAFF PHYSICIAN, Urology] - 11/30/24 Referral Note: keep scheduled follow up on Saturday, November 30, 2024 Tacos Del Toro DO [Primary Care Provider, Medicine] Referral Note: Your PCP office will call you to schedule a follow up. Activity:: Activity as Tolerated Equipment/Supplies:: Blood Glucose Monitor Diet:: As Tolerated Discharge Orders Discharge Orders: Discharge Order (Routine); Ordered 11/28/24 Ordered By: Erendira Blankenship Discharge Data Discharge Date/Time-TO BE ENTERED AT DEPARTURE: 11/28/24 14:23 DS: Summary Time Spent with Patient providing and/or coordinating discharge services: Less than 30 minutes Status at Discharge Functional status at discharge: independent ambulation Overall status at discharge: patient is progressing back to baseline Mental Status: mental status grossly normal Speech and Movement: speech and movement normal Mood: congruent mood Affect: normal affect Quality:SDOH Health Related Social Needs: Health related social needs risk of homeless Health related social needs details N/A Health related social needs details: N/A Exam Narrative Exam Narrative: Well-appearing female of stated age no acute distress head is atraumatic eyes nonicteric noninjected skin is pale warm and dry oral mucosas slightly dry neck full range of motion cardiovascular regular rate and rhythm respirations even and unlabored abdomen is soft nontender she moves all extremities equally no peripheral edema psychiatric appropriate mood and affect. Neurologic she is awake alert oriented no focal deficit skin no rashes or lesions Psych Mental Status: mental status grossly normal Speech and Movement: speech and movement normal Mood: congruent mood Affect: normal affect DS: Data Vitals/I&O Vitals and I&O: Vital Signs Temperature 36.3 C L 11/28/24 07:22 Temperature Source Temporal Artery Scan 11/28/24 07:22 Pulse 70 11/28/24 07:22 Pulse Rhythm Regular 11/27/24 23:31 Respiratory Rate 14 11/28/24 07:22 Respiratory Effort Normal 11/27/24 23:31 Respiratory Depth Normal 11/27/24 23:31 Respiratory Pattern Normal 11/27/24 23:31 Blood Pressure 110/69 11/28/24 07:22 Blood Pressure Mean 82 11/28/24 07:22 Pulse Oximetry 100 11/28/24 07:22 Oxygen Delivery Method Room Air 11/28/24 07:22 Oxygen Flow Rate 0 11/28/24 07:22 Pain Level 8 11/28/24 07:51 Intake & Output 11/27/24 11/27/24 11/28/24 11:59 23:59 11:59 Intake Total 100 / 100 Balance 100 / 100 Weight 58.332 kg Intake: IV 100 / 100 Data Completed and Pending Labs on day of discharge: Labs from last 24 hours 11/28/24 11/27/24 11/27/24 08:20 21:02 20:37 WBC 7.31 11.43 H RBC 3.53 L 4.53 Hgb 10.5 L D 13.1 Hct 32.3 L 40.7 MCV 92 90 MCH 29.7 28.9 MCHC 32.5 32.2 RDW 12.4 12.1 Plt Count 230 331 MPV 8.8 8.7 Immature Gran % 0.3 Neutrophils % 63.8 Lymphocytes % 29.6 Monocytes % 5.3 Eosinophils % 0.6 Basophils % 0.4 Nucleated RBC % 0.0 Absolute Neutrophils 7.29 H Absolute Lymphocytes 3.38 Absolute Monocytes 0.61 Absolute Eosinophils 0.07 Absolute Basophils 0.05 VBG Lactate 1.0 Sodium 142 142 Potassium 3.9 3.2 L Chloride 108 H 103 Carbon Dioxide 28.0 29.0 Anion Gap 6.0 10.0 BUN 10 11 Creatinine 0.6 0.8 Est GFR (CKD-EPI 2020) 128.46 105.45 Glucose 92 105 Calcium 8.4 L 9.3 Magnesium 1.8 Total Bilirubin 0.4 AST 9 L ALT 19 Alkaline Phosphatase 52 Total Protein 8.2 Albumin 4.5 Urine Color Sharonda Urine Clarity Cloudy Urine pH 6.0 Ur Specific Davidson >= 1.030 H Urine Protein >=300 H Urine Ketones Trace H Urine Blood Large H Urine Nitrite Positive H Urine Bilirubin Small H Urine Urobilinogen 1.0 H Ur Leukocyte Esterase Small H Urine RBC >50 H Urine WBC Ur Epithelial Cells Not Applicable Urine Crystals Not Applicable Urine Bacteria Not Applicable Urine Mucus Not Applicable Ur Culture Indicated? Yes Urine Glucose Negative 11/27/24 22:35 Blood Blood Culture - Pending 11/27/24 21:02 Urine - Reflex from Ua Urine Culture - Pending Preliminary micro results at discharge 11/27/24 22:35 Blood Blood Culture - Pending 11/27/24 21:02 Urine - Reflex from Ua Urine Culture - Pending PFSH All Active Problems (Updated 11/27/24 @ 23:06 by NELLIE Blake) UTI (urinary tract infection) (Acute) Intractable pain (Acute) Calculus of proximal left ureter (Acute) Inverted nipple (Acute) Previous delivery, antepartum (Acute) Maternal varicella, non-immune (Acute) Rubella non-immune status, antepartum (Acute) Medical History Family history of coronary arteriosclerosis Post-concussion headache Learning difficulty (04/21/13) IEP in place Kidney stones hospitalized 2014 and 2019 Surgical History Myringotomy w/ PE (pressure equalizing) tubes Family History Other Personal history of malignant neoplasm MGM Father Essential hypertension Heart disease Mother Asthma Diabetes Essential hypertension Social History Smoking/Tobacco Use Status: Current-Occasional Tobacco Type: e-cigarettes Smoking risk assessment performed?: Yes Alcohol Intake: former Drug use: Current Sobriety Substance use type: former substance user Date of last use: marijuana Adopted: No Caregiver/Support person: No Foster care: No Household members: children Housing: house Number of Children: 1 Communication Needs: None Education Level: high school Do you need help understanding health information?: Never current occupation: LIBRARY INFORMATION TECHNICIAN Pets and animals: No Sexually active: No Do you think of yourself as: straight/heterosexual Current gender identity: female What is your relationship status?: never How often do you talk on the phone with friends or family?: three or more times per week How often do you get together with friends or relatives?: three or more times per week Do you belong to any clubs or organized social groups?: no Panel score (0-1 are the most socially isolated patients): 1 What type of physical activity do you participate in: walking Duration: 60-90 minutes/day Frequency: 5-6 times per week Maryellen/Religious: None Special maryellen needs: No Seatbelt use: always Helmet use: No Drive intox or ride w/intox 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 Date GA/Weeks # Preg Succ Route Wgt Sex Labor Lgth Anesthesia Location Prov Complic 03/23/19 36 No Yes vaginal 2834.952 g Female 8 Christine Jean CNM 04/13/23 34 No Yes vaginal 2250.952 g Male 10hrs 12min JAREK Castillo Delivery Date: 03/23/19 Last Updated by: Janis Jean CNM No complications. Spontaneous labor. Mother with perineal and periurethral abrasions not needing repair. Delivery Date: 04/13/23 Last Updated by: YENNI Osei; Shoulder cord and true knot; @1min=7; @5min=8 Time Spent with Patient Time Spent with Patient: 45-69 minutes Time was spent: preparing to see the patient(eg.review tests), obtaining and/or reviewing separately otained hiistory, ordering medications,tests, procedures, indepentently interpreting results and counseling the patient
[2024-11-28 11:14] VITALS: BP 115/71; PULSE 75; RESP 15; TEMP 36.3; O2SAT 98
[2024-11-28] MEDS: oxyCODONE 5 MG TAB PO (11:42)
[2024-11-28] MEDS: Lidocaine 5% Patch 1 PATCH TP (11:43)
[2024-11-28] MEDS: Acetaminophen 325 MG TAB 650 MG PO (11:43)
[2024-11-28] MEDS: Naproxen 500 MG TAB PO (11:50)
--- NOTE | 2024-11-28 13:32 | PDOC.CMDIS ---
Date of service: 11/28/24 Time of Service: 13:32 LACE Index Scoring Tool Questions: Length of Stay (in days): 1 Was the patient admitted via the E.D.?: Yes E.D. Visits: 2 Answers: Total Score: 6 Risk of Readmission: Low Risk Care Management Discharge Plan Reason for Hospitalization: Pain Discharge Plan: Maryellen is discharged home via private vehicle with family. Pt will follow up with her PCP and discharge plan of care as directed. No new services are ordered prior to discharge. Patient/Family Education Needs: Review discharge instructions and plan to follow up after discharge. Discuss ask me three. SDOH Health Related Social Needs: Health related social needs risk of homeless Health related social needs details N/A Health related social needs details: N/A
== END 2024-11-28 14:23 | disposition home or self-care (01) ==
LOC: ER 23:06 → MS 23:31
PROVIDERS: Admitting Provider Family Medicine; Emergency Provider Physician Assistant; PCP Family Medicine; Visit Provider Family Medicine
DX: T83.592A Infection and inflammatory reaction due to indwelling ureteral stent, initial encounter (principal); N20.1 Calculus of ureter; N39.0 Urinary tract infection, site not specified; Z59.811 Housing instability, housed, with risk of homelessness; Z96.0 Presence of urogenital implants; Y83.8 Other surgical procedures as the cause of abnormal reaction of the patient, or of later complication, without mention of misadventure at the time of the procedure; F17.290 Nicotine dependence, other tobacco product, uncomplicated; G89.18 Other acute postprocedural pain; N23 Unspecified renal colic; D72.829 Elevated white blood cell count, unspecified; R11.0 Nausea
CPT/HCPCS: 00123; 36415; 80048; 80053; 81025; 85027; 87040; 96361; 96365; 96375; 96376; 99285; 74018; 81003; 81015; 83605; 83735; 85025; 87086; 99223; 99238; G0378; J0696; J1171; J1885; J2270

== ENCOUNTER 2025-01-06 14:48 | Outpatient (CLI) | payer MEDICAID, SELFPAY ==
--- NOTE | 2025-01-06 06:15 | DI.US_ITS ---
Exam(s) US RENAL EXAM: US RENAL CLINICAL HISTORY: r/o hydronephrosis N20.1 CALCULUS URETER LEFT. TECHNIQUE: Mckenna scale imaging and color doppler were used. COMPARISON: CT CT RENAL COLIC WO from 11/19/2024 US US RENAL from 11/24/2024 CR,XR XR ABDOMEN FLAT PLATE from 11/27/2024 FINDINGS: Right kidney: 9.8cm Echogenicity: Normal Hydronephrosis: No Cyst or mass: No Nephrolithiasis: No Left kidney: 10.8cm Echogenicity: Normal Hydronephrosis: No. The previously noted ureteral stent has been removed. Cyst or mass: No Nephrolithiasis: No Bladder:Normal. Neither ureteral jet was visualized. Prevoid vol:26 cc Postvoid vol:0 cc IMPRESSION: Negative renal ultrasound. No visible calculi. DATA REPOSITORY:
== END 2025-01-06 15:08 ==
LOC: DI 14:48
PROVIDERS: PCP Family Medicine; Visit Provider Urology
DX: N20.1 Calculus of ureter (principal)
CPT/HCPCS: 76770

== ENCOUNTER 2025-01-17 21:30 | Outpatient (REF) | payer MEDICAID, SELFPAY ==
[2025-01-17 22:50] LABS: Creatinine,Urine 106.36 mg/dL; Sodium, Urine 138 mmol/L
[2025-01-17 22:51] LABS: Creatinine,24hr Ur 1.38 g/24hr (0.60-1.80); Total Volume 1300 ml
[2025-01-17 22:52] LABS: Total Volume 1300 ml
[2025-01-19 09:32] LABS: Timed Urine Volume 1300 mL
[2025-01-19 09:40] LABS: Calcium Urine 17.8 mg/dL (See Note); Timed Urine Volume 1300 mL
[2025-01-19 16:59] LABS: Citrate Excretion, 24hr, U 910 mg/24 h (186 - 1191)
[2025-01-20 13:09] LABS: Oxalate, U 0.21 mmol/24 h; Oxalate, U 18.5 mg/24 h (9.7 - 40.5)
[2025-02-02 15:19] LABS: Timed Urine Volume 1300
== END 2025-01-17 21:31 | disposition home or self-care (01) ==
LOC: LBN 21:30
PROVIDERS: PCP Family Medicine; Visit Provider Urology
DX: N20.1 Calculus of ureter (principal); N20.0 Calculus of kidney
CPT/HCPCS: 82507; 83735; 81050; 82340; 82570; 83945; 84300; 84560

== ENCOUNTER 2025-03-05 10:34 | Day surgery (SDC) | payer MEDICAID, SELFPAY ==
[2025-03-05] VITALS (60 sets, daily range): BP systolic 97–145; BP diastolic 46–103; PULSE 63–124; RESP 9–27; TEMP 36–36.7; O2SAT 92–100; BMI 21.9
[2025-03-05] MEDS: Lactated Ringers 1,000 ML 80 ML IV (11:02)
--- NOTE | 2025-03-05 11:14 | HPE_ITS ---
Date of service: 03/05/25 Time of Service: 11:15 Assessment and Plan Assessment and plan (1) Kidney stones: Assessment and plan: For cystoscopy, left retrograde pyelogram, left ureteroscopy, possible holmium laser lithotripsy. History of Present Illness History of Present Illness Chief Complaint: Left kidney stone Narrative: This is a 24-year-old woman who has a history of left-sided kidney stones. Metabolically complex her stones have been calcium based. She has undergone left ureteroscopy and holmium laser lithotripsy left proximal ureteral stone 3 months ago. Her follow-up ultrasound showed no remaining stone fragments and no hydronephrosis. She came into the office yesterday with acute onset of left-sided flank pain. Urinalysis showed blood but infections. Supportive care renal ultrasound showed no hydronephrosis but there did appear to be a hyperechoic area in the upper pole was consistent with a kidney stone. She has been symptomatic, she presents for stone manipulation. She is not having any fevers or chills. Review of Systems Narrative: No fevers or chills No vision change or dysphasia No diabetes or thyroid dysfunction No shortness of breath, cough or hemoptysis No chest pain or palpitations Nausea. No vomiting, hepatitis, ulcers, jaundice, diarrhea or constipation No seizures, strokes or peripheral neuropathy No bleeding disorders or anemia No gout PFSH All Active Problems Intractable pain (Acute) Calculus of proximal left ureter (Acute) Medical History Family history of coronary arteriosclerosis Post-concussion headache Learning difficulty (04/21/13) IEP in place Kidney stones hospitalized 2014 and 2019 Surgical History Myringotomy w/ PE (pressure equalizing) tubes Family History Other Personal history of malignant neoplasm MGM Father Essential hypertension Heart disease Mother Asthma Diabetes Essential hypertension Social History Smoking/Tobacco Use Status: Current-Occasional Tobacco Type: e-cigarettes Smoking risk assessment performed?: Yes Alcohol Intake: former Drug use: Current Sobriety Substance use type: former substance user Date of last use: marijuana Adopted: No Caregiver/Support person: No Foster care: No Household members: children Housing: house Number of Children: 1 Communication Needs: None Education Level: high school Do you need help understanding health information?: Never current occupation: PRIOR AUTHORIZATION TECHNICIAN Pets and animals: No Sexually active: No Do you think of yourself as: straight/heterosexual Current gender identity: female What is your relationship status?: never How often do you talk on the phone with friends or family?: three or more times per week How often do you get together with friends or relatives?: three or more times per week Do you belong to any clubs or organized social groups?: no Panel score (0-1 are the most socially isolated patients): 1 What type of physical activity do you participate in: walking Duration: 60-90 minutes/day Frequency: 5-6 times per week Maryellen/Presybeterian: None Special maryellen needs: No Seatbelt use: always Helmet use: No Drive intox or ride w/intox crew truck driver: No Do you feel safe at home: Yes Do you feel safe in your relationship?: Yes Female Reproductive History Menstrual Age of Menarche: 14 Duration of menses: <3 days control method: none History History 2 Para 2 Hx # Term Pregnancies 0 Multiple births 0 Hx # Pregnancies 1 Ectopic pregnancies 0 AB induced 0 Hx Number of Living Children 2 AB spontaneous 0 Past Pregnancies Del. Date GA/Weeks # Preg Succ Route Wgt Sex Labor Lgth Anesth esia Location [facility] 03/23/19 36 No Yes vaginal 2834.952 g Female 8 Christine Jena CNM 04/13/23 34 No Yes vaginal 2250.952 g Male 10hrs 12min JAREK Castillo Delivery Date: 03/23/19 Last Updated by: Janis Jean CNM No complications. Spontaneous labor. Mother with perineal and periurethral abrasions not needing repair. Delivery Date: 04/13/23 Last Updated by: YENNI Osei; Shoulder cord and true knot; @1min=7; @5min=8 Meds Allergies and Home Medications Allergies Allergy/AdvReac Type Severity Reaction Status Date / Time No Known Allergies Allergy Verified 03/05/25 10:42 Home Medications Medication Instructions Recorded Confirmed Type acetaminophen 325 mg tablet 650 mg (2 x 325 mg) PO QID #0 tabs 11/28/24 03/05/25 Rx naproxen 500 mg tablet 500 mg PO BID #0 tabs 03/05/25 Rx oxycodone 5 mg tablet 5 - 10 mg (1 - 2 x 5 mg) PO Q6H 03/04/25 03/05/25 Rx Held on 03/05/25. PRN pain #20 tabs Instructions: Prescription Finished tamsulosin 0.4 mg capsule 0.4 mg PO DAILY help pass st one #5 03/04/25 03/05/25 Rx caps Exam Const General: cooperative Neck Neck: supple Resp Effort & Inspection: normal respiratory effort Auscultation: clear to auscultation bilaterally Cardio Rate: regular rate Rhythm: regular rhythm GI Palpation: soft and no masses Neuro General: patient alert, patient awake and patient oriented x3 Results Last Vital Signs Temp 36 C L 03/05/25 10:39 Pulse 86 03/05/25 10:39 Resp 16 03/05/25 10:39 BP 114/66 03/05/25 10:39 Pulse Ox 99 03/05/25 10:39 Time Spent Time spent with Patient: <40 minutes Time was spent: other
[2025-03-05] MEDS: HYDROmorphone 2 MG/ML SYR IVP ×3 (11:46→15:06)
--- NOTE | 2025-03-05 11:58 | W.ANESPRE ---
General Info Date of Service Date Performed: 03/05/25 Height: 5 ft 3 in Weight: 56.2 kg Body Mass Index (BMI): 21.9 Surgical Procedure: Operation Date: 03/05/25 10:55 Proposed Procedure Side Surgeon p Cystoscopy/Possible Laser/Retrograde/Ureteroscopy Left Frederick Huerta MD Meds Allergies and Home Medications Allergies Allergy/AdvReac Type Severity Reaction Status Date / Time No Known Allergies Allergy Verified 03/05/25 10:42 Home Medication Medication Instructions Recorded acetaminophen 325 mg tablet 650 mg (2 x 325 mg) PO QID #0 tabs 11/28/24 naproxen 500 mg tablet 500 mg PO BID #0 tabs 11/28/24 oxycodone 5 mg tablet 5 - 10 mg (1 - 2 x 5 mg) PO Q6H 03/04/25 Held on 03/05/25. PRN pain #20 tabs Instructions: Prescription Finished tamsulosin 0.4 mg capsule 0.4 mg PO DAILY help pass stone #5 03/04/25 caps Current Visit Medications: Current Medications Generic Name Dose Route Start Last Admin Trade Name Freq PRN Reason Stop Dose Admin Hydromorphone HCl 0.5 - 1 mg 03/05/25 11:41 03/05/25 11:46 Hydromorphone 2 Mg/Ml Syr IVP 04/04/25 11:40 1 mg Q2H PRN PRN Administration Ringer's Solution 1,000 mls @ 80 mls/hr 03/05/25 06:00 03/05/25 11:02 IV 03/05/25 23:59 80 mls/hr INFUSION ARLENE Administration Cefazolin Sodium/Dextrose 2 gm in 50 mls @ 100 mls/hr 03/05/25 06:00 Ancef Duplex IVPB 03/05/25 23:59 PREOP ARLENE IV Miscellaneous Supplies 1 each 03/05/25 06:00 Iv Access IV 03/05/25 23:59 DIRECTED ARLENE Sodium Chloride 0 ml 03/05/25 06:00 Normal Saline Flush 10 Ml Syr IV 03/05/25 23:59 PRN PRN Sodium Chloride 0 ml 03/05/25 06:00 Normal Saline 10 Ml Vial IJ 03/05/25 23:59 DIRECTED PRN Sterile Water 0 ml 03/05/25 06:00 Water,Injection,Sterile 10 Ml Vial IJ 03/05/25 23:59 DIRECTED PRN PFSH Active Problems Active Problems: Problem Status Onset Code Intractable pain Acute R52 Calculus of proximal left ureter Acute N20.1 Medical History Medical History Family history of coronary arteriosclerosis Post-concussion headache Learning difficulty (04/21/13) IEP in place Kidney stones hospitalized 2014 and 2019 Surgical History Surgical History Myringotomy w/ PE (pressure equalizing) tubes Tobacco Smoking/Tobacco Use Status: Current-Occasional Tobacco Type: e-cigarettes Passive smoking exposure: Yes Alcohol Alcohol Intake: former Substance Use Substance use: Current Sobriety Substance use type: former substance user Date of last use: marijuana Prental History History 2 Para 2 Hx # Term Pregnancies 0 Multiple births 0 Hx # Pregnancies 1 Ectopic pregnancies 0 AB induced 0 Hx Number of Living Children 2 AB spontaneous 0 Past Pregnancies Del. Date GA/Weeks # Preg Succ Route Wgt Sex Labor Lgth Anesthesia Location Prov Complic 03/23/19 36 No Yes vaginal 2834.952 g Female 8 Christine Jean CNM 04/13/23 34 No Yes vaginal 2250.952 g Male 10hrs 12min JAREK Castillo Delivery Date: 03/23/19 Last Updated by: Janis Jean CNM No complications. Spontaneous labor. Mother with perineal and periurethral abrasions not needing repair. Delivery Date: 04/13/23 Last Updated by: YENNI Osei; Shoulder cord and true knot; @1min=7; @5min=8 Vital Signs and Lab Results Vital Signs Most Recent Vital Signs in EMR: Most Recent Vital Signs Temp Pulse Resp BP Pulse Ox 36 C L 86 16 114/66 99 03/05/25 10:39 03/05/25 10:39 03/05/25 10:39 03/05/25 10:39 03/05/25 10:39 Point of Care Results Point of Care Results: POC- Test(urine) Negative 03/05/25 10:55 Imaging and Studies Imaging and Studies Study information below may be from another EMR and interpreted by another provider. Please see original notes in EMR for more complete details. EKG Summary: EKG PATIENT NAME: Maryellen Velasco UNIT #: [id number] ORDERING PROVIDER: Tacos Del Toro DO PRIMARY CARE PROVIDER: TACOS DEL TORO DO DATE/TIME OF SERVICE: 11/23/21 1621 : 2000 PERFORMING LOCATION: [facility] Exam: Resting ECG Reason for Exam: Tachycardia, exertional dyspnea Patient Location: O HR:94 bpm ECG Measurements Heart Rate 94 AXIS UT 132 P 49 QRSd 90 QRS 42 QT 364 T59 QTc 455 Conclusion Sinus rhythm...normal P axis, V-rate 60- 99 Normal Electrocardiogram <Electronically signed by CHASIDY ALMANZAR MD in OV> E-Sign Date: 11/24/21 E-Sign Time: 0800 Anesthesia Assessment and Plan Anesthesia History Personal History: No History of Anesthesia Complications Family History: No Family History of Anesthesia Complications Exercise Tolerance Exercise Tolerance: Metabolic Equivalents>4 Pertinent Negatives Pertinent Negatives: No Symptoms of GERD, No Major Cardiovascular Symptoms or Complaints, No Major Pulmonary Symptoms or Complaints and No History of CVA/TIA Cardiac & Pulmonary Exam Cardiac Exam: Normal S1/S2 Heart Sounds Pulmonary Exam: Clear Bilateral Breath Sounds Cardiac and Pulmonary Comment:: e-cigarettes Implantable Cardiac Device Does patient have a Pacemaker or an ICD?: No Airway Exam Known Difficult Airway: No Mallampati Class: 2 Mouth Opening: Normal (> 3cm) Thyromental Distance: Greater than 3 cm Neck Range of Motion: Full ROM Neck Circumference: Normal Teeth Condition: Normal Dentition ASA Classification ASA Score: ASA 2 Emergency Case?: No NPO Status NPO Status: NPO Clears >2 hours, Solids >8 hours Status Status: Negative HCG Anesthesia Plan Resuscitation Status: Full Code Anesthesia Technique: General Anesthesia Airway Planned: Endotracheal Tube Monitors Used: Standard Monitors Preoperative Comments:: History of kidney stones x 3. Form Prior Anesthetic: GA natural airway 11/19/2024 and did well. Reports lacking memory until 1630 in the afternoon on that date. I plan to reduce midazolam dosing today, otherwise to repeat plan of last anesthetic today. Plan to use laser today: plan is to GETA
[2025-03-05] MEDS: ceFAZolin 2 GM/50 ML BAG IVPB (12:53)
[2025-03-05] MEDS: Lidocaine 2% Jelly 6 ML SYR (13:05)
[2025-03-05] MEDS: Omnipaque 300 MG/ML 50 ML BTL (13:19)
--- NOTE | 2025-03-05 13:29 | W.PM.DSUDISC ---
Date of service: 03/05/25 Discharge Plan Disposition Patient Disposition: Home Condition: Stable Discharge Details Reason For Visit: kidney stone Attending Provider: Frederick Huerta Primary Care Provider: Tacos Del Toro Home Meds and New Rx's Prescriptions: No Action tamsulosin 0.4 mg capsule 0.4 mg PO DAILY Qty: 5 0RF oxycodone 5 mg tablet 5 - 10 mg PO Q6H MDD 8 PRN (Reason: pain) Qty: 20 0RF acetaminophen 325 mg Tablet 650 mg PO QID Qty: 0 0RF naproxen 500 mg Tablet 500 mg PO BID Qty: 0 0RF Discharge Instructions Additional Instructions: There is no need to strain your urine You have a ureteral stent that has a string attached. If the stent becomes dislodged over the weekend, it is perfectly safe to pull the string and remove the stent entirely. If the stent does not become dislodged, it should be removed on Saturday. The stent removal could be done in our office or by you if you are comfortable doing so. While the stent is in place, it is common to see blood in the urine, have discomfort when you urinate and urinate more frequently. TAKE YOUR PAIN MEDICINE THROUGH THE WEEKEND! You will need a followup appt to have a renal ultrasound in 6 to 8 weeks Activity:: Activity as Tolerated Shower/Bathe:: 24 hours Diet:: As Tolerated Discharge Orders Discharge Orders: Discharge Order (Routine); Ordered 03/05/25 Ordered By: Frederick Huerta DS: Diagnosis Discharge Diagnosis (1) Kidney stones:
--- NOTE | 2025-03-05 13:33 | DI.RAD_ITS ---
Exam(s) XR RETROGRADE IN OR EXAM: XR RETROGRADE IN OR CLINICAL HISTORY: Kidney stones LEFT TECHNIQUE: 2D and realtime digital imaging was performed. CONTRAST MATERIAL: Refer to procedure report. COMPARISON: CT CT RENAL COLIC WO from 11/19/2024 CR,XR XR ABDOMEN FLAT PLATE from 11/27/2024 US US RENAL from 01/06/2025 FINDINGS: Fluoroscopy was provided for Dr. Huerta during the performance of a retrograde evaluation of the renal collecting system. Please refer to the procedure report for complete details. Ka,r=4.83 mGy IMPRESSION: RADIATION DOSE DELIVERED: 0.0 0.0 0
--- NOTE | 2025-03-05 13:37 | W.PM.OP ---
Operative Note Operative Note PRE-OP DIAGNOSIS: Left kidney stone POST-OP DIAGNOSIS: same PROCEDURE: cystoscopy, left retrograde pyelogram, left ureteroscopy with insertion of ureteral stent SURGEON: Frederick Huerta ANESTHESIA TYPE: Local By Surgeon and General LMA/ETT Refer to Anesthesia Record ESTIMATED BLOOD LOSS: 5 PATHOLOGY: none sent COMPLICATIONS: None Patient was transported to: PACU Patient's condition: stable Implants: 4.8 [place] by 22 to 30 cm left ureteral stent (string attached) Indications: This is a 24-year-old woman who has a past history of calcium-based stones. She developed an acute onset of left-sided flank pain about 48 hours ago. She was seen in the office and her urinalysis showed blood but no sign of infection. An ultrasound raised the possibility of a nonobstructing stone in the upper pole of the left kidney. She presents for ureteroscopy. Findings: no large stone burden Procedure Description: The patient was given IV antibiotics and brought to the operating room on 03/05/2025. After successful induction of general anesthesia, she was placed in the dorsal lithotomy position. Her genitalia was prepped and draped. 2% Xylocaine jelly was instilled into the urethra to act as a local anesthetic. A 22 [place]yan rigid cystoscope was passed through the urethra into the bladder. The bladder was inspected with a 30 degree lens. Both ureteral orifices appeared normal with no blood visible in the urine efflux. No stones were seen within the lumen of the bladder. The left ureteral orifice was cannulated with a 5 Libyan access catheter. Retrograde pyelogram was obtained by injecting Omnipaque through the access catheter under fluoroscopic guidance. No filling defects were seen in the ureter. I then passed a guidewire through the lumen of the access catheter and removed both the cystoscope and the access catheter. I passed a dual-lumen catheter over the wire and placed a second wire. We chose one of the wires as a working wire and the other is a safety wire. I then passed the flexible ureteroscope over the working wire leaving the safety wire in place. Each of the calyces was inspected. No large stone burden was identified. Only a few small flakes were seen in the upper pole calyces. These were irrigated free and were too small for basketing. The ureter was inspected as we withdrew the ureteroscope. No ureteral stones were identified. I then passed a 4.8 [place]yan variable length stent over the safety wire. We positioned the stent with the proximal end curled in the renal pelvis and the distal end curled within the bladder. The positioning of the stent was confirmed both fluoroscopically and cystoscopically. The patient tolerated this procedure well with no complications. She was taken to the recovery room in stable condition. Date of Procedure: 03/05/25
[2025-03-05] MEDS: fentaNYL 100 MCG/2 ML VIAL IVP ×4 (13:48→15:28)
--- NOTE | 2025-03-05 13:54 | W.ANESPOSTOP ---
Postoperative Evaluation Date, Time and Location Date Performed: 03/05/25 Time Performed: 13:55 Patient Location: PACU Vital Signs Most Recent Imported Vital Signs: Most Recent Vital Signs Temp Pulse Resp BP Pulse Ox 36.4 C L 86 16 114/66 99 03/05/25 13:37 03/05/25 10:39 03/05/25 10:39 03/05/25 10:39 03/05/25 10:39 Pain Score Most Recent Pain Score: Most Recent Pain Score Pain Level 03/05/25 13:47 Assessment Mental Status: Awake (Alert & Oriented to Patient Baseline) Airway and Respiratory Function: Patent airway with normal (patient baseline) respiratory exam Cardiovascular Function: Hemodynamically Stable Hydration Status: Adequately Hydrated Nausea & Vomiting: No Nausea or Vomiting Pain: Pain is Moderate or Severe Postoperative Pain Management: Pain being addressed with medication Peripheral Nerve Block: Patient did not receive a nerve block
[2025-03-05] MEDS: LORazepam 20 MG/10 ML VIAL IVP ×2 (14:15→14:30)
[2025-03-05] MEDS: Phenazopyridine 200 MG TAB PO (14:49)
[2025-03-05] MEDS: Tamsulosin 0.4 MG CAPCR 0.8 MG PO (16:26)
[2025-03-05] MEDS: Oxybutynin 5 MG TAB PO (16:26)
== END 2025-03-05 17:00 | disposition home or self-care (01) ==
PROVIDERS: PCP Family Medicine; Visit Provider Urology
PROC: (CPT 52332; principal; 2025-03-05 10:45)
DX: N20.0 Calculus of kidney (principal); F17.290 Nicotine dependence, other tobacco product, uncomplicated
CPT/HCPCS: 52332; 74420; J0131; J0690; J1100; J1171; J1885; J2060; J2250; J2405; J2704; J3010; Q9967

== ENCOUNTER 2025-03-08 12:39 | Outpatient (RCR) | payer MEDICAID, SELFPAY ==
[2025-03-08] MEDS: methylPREDNISolone SUCC 40 MG VIAL 5 MG IVP (13:14)
[2025-03-08] MEDS: Normal Saline Flush 10 ML SYR IVP (13:14)
== END 2025-04-04 23:59 | disposition home or self-care (01) ==
LOC: INF 12:39
PROVIDERS: PCP Family Medicine; Visit Provider Urology
DX: R10.A2 Flank pain, left side (principal)
CPT/HCPCS: 96374; J2919

== ENCOUNTER 2025-03-15 09:07 | Outpatient (REF) | payer MEDICAID, SELFPAY | END 2025-03-15 09:08 | disposition home or self-care (01) | LOC: LBN 09:07 | PROVIDERS: PCP Family Medicine; Visit Provider Family Medicine | DX: R10.A2 Flank pain, left side (principal); N20.1 Calculus of ureter | CPT/HCPCS: 84560; 87086 ==

== ENCOUNTER → 2025-03-15 09:24 | Outpatient (CLI) | payer MEDICAID, SELFPAY ==
--- NOTE | 2025-03-15 09:43 | DI.RAD_ITS ---
Exam(s) XR LUMBAR SPINE COMPLETE EXAM: XR LUMBAR SPINE COMPLETE CLINICAL HISTORY: Mid line and L flank pain PAIN R52. TECHNIQUE: 2D digital imaging was performed. Five views. COMPARISON: No exams were available for comparison FINDINGS: BONES: No fracture or destructive lesion. Vertebral body heights are maintained. No facet hypertrophy identified . DISKS: Intervertebral disc spaces are maintained. ALIGNMENT: Lumbar spinal alignment is within normal limits. SOFT TISSUE: Normal. IMPRESSION: Unremarkable radiographs of the lumbar spine. DATA REPOSITORY: RADIATION DOSE DELIVERED:
== END ==
LOC: DI 09:25
PROVIDERS: PCP Family Medicine; Visit Provider Family Medicine
DX: M54.9 Dorsalgia, unspecified (principal)
CPT/HCPCS: 72110